=== PATIENT | male | born 1985 | race Caucasian/White ===

== ENCOUNTER → 2021-10-03 | Outpatient (CLI) | payer OTHER ==
--- NOTE | 2021-10-03 15:56 | MR ---
EXAMINATION TYPE: MR lumbar spine wo con DATE OF EXAM: 10/03/2021 COMPARISON: X-ray lumbar spine HISTORY: Lower back pain, BLE radiculopathy. Prior surgery x3. CONTRAST: 0 mL intravenous Gadavist. TECHNIQUE: Multiplanar, multisequence images of the lumbar spine were acquired. FINDINGS: Pedicle screws are present L4-L5 and S1. This causes magnetic susceptibility artifact limi ting evaluation through these levels. L5-S1: No definite spinal canal stenosis. Laminectomy has been performed. Foramen appear patent. L4-L5: Exam is limited to this level. Obvious stenosis is not identified. Foramen are limited but mariza ear patent. Metal compensation, there appears to be some right paracentral thecal sac contact. Some m ild posterior displacement of the exiting right nerve root be present. Correlate with radicular sympt oms. Example image series 701 image 7. L3-L4: There may be some minimal disc bulging with anterior thecal sac contact. No spinal canal steno sis is present. Facet hypertrophy is present L2-L3: No significant disc bulge or disc herniation. No spinal canal stenosis. No foraminal stenosi s. Facet hypertrophy is present.. L1-L2: No significant disc bulge or disc herniation. No spinal canal stenosis. No foraminal stenosi s. T12-L1: No significant disc bulge or disc herniation. No spinal canal stenosis. No foraminal stenos is. IMPRESSION: 1. There is limitation due to metallic artifact. With metal compensation there is suggestion of some right paracentral disc bulging L4-5 displacing the thecal sac and right exiting nerve root. Correlate for right L5 radicular symptoms.
== END | disposition home or self-care (01) ==
LOC: RADMRIMAIN 13:06
PROVIDERS: ATTEND Orthopaedic Surgery
DX: M51.16 Intervertebral disc disorders with radiculopathy, lumbar region (principal)
CPT/HCPCS: 72148

== ENCOUNTER → 2021-11-19 | Outpatient (CLI) | payer OTHER ==
--- NOTE | 2021-11-19 16:17 | MR ---
MRI CERVICAL SPINE: CLINICAL HISTORY: Cervical pain. Headache with weakness and pain into left arm and fingers. TECHNIQUE: Multiplanar, multisequence imaging of the cervical spine is performed without IV contrast. COMPARISON: Outside cervical spine x-ray October 30, 2021. FINDINGS: Sagittal images of the cervical spine show the craniocervical junction to appear within nor mal limits. The cervical and upper thoracic spinal cord is normal in course, caliber, and signal. V ertebral alignment is anatomic. The vertebral body and intravertebral disk heights are normal. The bone marrow signal intensity is within normal limits. Axial images show there is no significant focal disk disease, spinal canal stenosis, neural foraminal narrowing, or spinal cord compromise at any cervical level. IMPRESSION: Negative MRI of the cervical spine, no significant abnormality is seen to account for emory mendiola's clinical symptoms.
== END | disposition home or self-care (01) ==
LOC: RADMRIMAIN 13:24
PROVIDERS: ATTEND Nurse Practitioner Family
DX: M54.2 Cervicalgia (principal)
CPT/HCPCS: 72141

== ENCOUNTER → 2021-12-16 | Outpatient (CLI) | payer OTHER ==
[2021-12-16 08:27] VITALS: BP 123/76; PULSE 84; RESP 18; TEMP 98
--- NOTE | 2021-12-16 14:45 | P.PAINPG ---
PQRS Measure Charge Sheet Comment: HISTORY OF PRESENT ILLNESS: 36 yr old male as a referral from Dr. Cahn presents today w severe and chronic LBP secondary to disc bulges, spondylosis and facet arthropathy without myelopathy for evaluation. Pt states his pain level is currently at 10 /10 in intensity, constant, localized in the mid to lower lumbar spine, sharp in character w shooting towards the LLE. Pain is provoked by bending. Pain is alleviated by medications, injections in the past, ice, physical therapy twice a week from July through September 2021, daily home stretching regimen, massage therapy weekly but discontinued due to cost, laying supine, repositioning and rest. PMH: Exercise Induced Asthma PSH: Lumbar Microdisectomy x 2 (2012), Lumbar fusion (2013), Lumbar fusion w graft (2014), Appendectomy (2017) SH: +Cannabis use, No ETOH abuse. FH: Denies All: NKDA Meds: See list REVIEW OF ORGAN SYSTEMS: CONSTITUTIONAL: No fevers or chills. No recent weight loss. NEUROLOGICAL: + numbness and tingling along the distal extremities. No seizure disorders or headaches. MUSCULOSKELETAL: + pain PSYCHIATRIC: Denies current depression or suicidal thoughts. Physical Examinations : Constitutional : Cooperative , not in acute distress . Neurologic : Cranial nerve II to XII intact. No focal neurological deficits. Psychiatric : alert & oriented x 3. Matching mood & appropriate affect. Judgment & insight intact. Musculoskeletal : Cervical Spine Motor strength in the deltoid and biceps: Normal right side. Normal Left side Motor strength biceps and the wrist extensors: Normal right side . Normal left side Motor strength in the triceps muscle: Normal right side. Normal left side Deep tendon reflexes: Normal at the biceps. Normal at Brachioradialis. Normal at triceps Vertebral body tenderness to deep palpation over Cervical facet loading test: positive bilaterally Spurling test: positive bilaterally Neck distraction test: positive bilaterally Eileen sign: positive bilaterally Lumbar spine Motor strength lower extremities ,thigh and legs 5/5 Right side , 5/5 Left side Deep tendon reflexes : Normal Knee Jerk. Normal Ankle Jerk Vertebral body tenderness over L3 Lumbar facet Loading Test: positive Right / positive Left Range of motion of the lumbar spine Flexion 30 degrees, extension 10 degrees Straight Leg Raise test: Left/ Right positive at degree Terry test: positive right / positive left. Severe tenderness over the Sacroiliac joint on the Right / Left sides Gaenslen test: positive bilaterally Seated flexion test: positive bilaterally. Sacral spine : Severe tenderness over the Sacroiliac joint: right side / left side Range of motion: Flexion of the lumbar spine <60 degrees Range of motion: Extension of the lumbar spine <20 degrees Gaenslen's Test positive Kwadwo's Test positive Terry test: positive right side / left side Thigh Thrust Test Sacral Thrust Test Imaging: MRI without contrast of the lumbar spine from 10/03/21 reviewed Assessment/ Plan : Lumbar disc bulges, lumbar spondylosis Recommendation of L TFESI L3-L4. May need a series of injections, up to 3 within a 6 mo period, for optimal pain relief. Risks, benefits of procedure discussed and patient verbalized understanding. Admits aspirin or anti- coagulant use or medical history of diabetes. Protocol for discontinuation/ continuation of medications levon procedure discussed. All questions answered. I have spent greater than 30 minutes on patient care today. Dr Disla was available by phone for the evaluation of this patient. The time was used to review the medical records including relevant urine studies and Prescription history (MAPs), review of the available imaging, evaluation and examination of the patient, coordination of care with the medical staff and if applicable referring physicians, as well as creation of the medical record Controlled Substance Measures - Controlled Substance Measures Is patient prescribed a controlled substance at discharge?: No
== END ==
LOC: PNWHC3 07:44
PROVIDERS: ATTEND Specialist
DX: M47.816 Spondylosis without myelopathy or radiculopathy, lumbar region (principal); E11.9 Type 2 diabetes mellitus without complications; Z79.01 Long term (current) use of anticoagulants; Z79.4 Long term (current) use of insulin; E66.9 Obesity, unspecified; Z68.37 Body mass index [BMI] 37.0-37.9, adult
CPT/HCPCS: 99211

== ENCOUNTER 2021-12-30 08:02 | Day surgery (SDC) | payer OTHER ==
[2021-12-30 08:51] VITALS: TEMP 97.5
--- NOTE | 2021-12-30 10:40 | CT ---
EXAMINATION TYPE: CT lumbar spine w con, FL myelogram lumbosacral DATE OF EXAM: 12/30/2021 10:09 AM HISTORY: Lower extremity pain and numbness Informed consent was obtained and all the patient's questions were answered. The L3-L4 level was loc alized under fluoroscopy. Standard sterile technique was utilized as well as appropriate local anest hesia 1% Lidocaine and sodium bicarbonate. Spinal needle was introduced into the thecal sac under fl uoroscopic guidance and 10 ml of Omni M300 was injected. The patient tolerated the procedure well an d left the department in stable condition. CT myelography is to follow. FL time:4 minutes 12 second s. IMPRESSION: Successful myelography lumbar spine EXAMINATION TYPE: CT lumbar spine w con, FL myelogram lumbosacral DATE OF EXAM: 12/30/2021 COMPARISON: MRI dated 10/03/2021 HISTORY: Low back pain, radiculopathy CT DLP: 1660.6 mGycm Automated exposure control for dose reduction was used. CONTRAST: CT scan of the lumbar is performed with IV Contrast, patient injected with 9 mL of Isovue M300. Enhanced CT of the lumbar spine was performed. Bone and soft tissue window settings are submitted as well as coronal and sagittal reconstructions. L1-L2: Normal disc space height. No disc herniation protrusion or central stenosis. No facet joint arthropathy. No evidence for foraminal encroachment. L2-L3: Mild posterior disc bulge. Minimal effacement ventral thecal sac. No disc herniation or protru elaine. No facet joint arthropathy. No evidence for foraminal encroachment. L3-L4: Mild degenerative disc space narrowing. Posterior disc bulge greatest paracentrally and to the left where there is left foraminal encroachment and left lateral recess stenosis. No herniation is d ifficult to exclude. Borderline central stenosis. L4-L5: Postoperative changes of lumbar laminectomy and fusion. Pedicular screws are in place. No evid ence for recurrent or residual disease. Alignment is anatomic. Intervertebral body spacer is well sea rigoberto. L5-S1: Postoperative changes of lumbar laminectomy and fusion. Pedicular screws are in place. No evid ence for recurrent or residual disease. Alignment is anatomic. Intervertebral body spacer is well sea rigoberto. IMPRESSION: 1. Posterior disc bulge with small disc herniation difficult to exclude paracentrally and to the left at L3-4 there is left lateral recess stenosis with left foraminal encroachment. 2. Postoperative changes of lumbar laminectomy and fusion at L4-5 and L5-S1.
[2021-12-30] MEDS ORDERED: HYDROcodone/APAP 7.5-325MG 1 EACH TAB PO PRN (10:48)
[2021-12-30 17:17] VITALS: BP 122/53; PULSE 64; RESP 16
== END 2021-12-30 13:54 | disposition home or self-care (01) ==
LOC: RADPROMAIN 08:02
PROVIDERS: ATTEND Orthopaedic Surgery
DX: M48.061 Spinal stenosis, lumbar region without neurogenic claudication (principal); M54.16 Radiculopathy, lumbar region
CPT/HCPCS: 36415; 62304; 72132; J2001; Q9967

== ENCOUNTER → 2022-03-20 | Outpatient (CLI) | payer OTHER | END | disposition home or self-care (01) | LOC: LABPAT 08:47 | PROVIDERS: ATTEND Orthopaedic Surgery | DX: Z01.812 Encounter for preprocedural laboratory examination (principal); Z22.322 Carrier or suspected carrier of Methicillin resistant Staphylococcus aureus; M48.062 Spinal stenosis, lumbar region with neurogenic claudication | CPT/HCPCS: 87070 ==

== ENCOUNTER → 2022-03-27 | Outpatient (CLI) | payer OTHER ==
[2022-03-27 19:13] LABS: INR 0.86 (0.90-1.11); Prothrombin Time 9.8 sec (9.9-11.9)
[2022-03-27 22:04] LABS: African American GFR (CKD) 95.4 (60.0-200.0); Anion Gap 9.3 mmol/L (10.00-18.00); BUN/Creat Ratio 14.74 Ratio (12.00-20.00); Blood Urea Nitrogen 16.8 mg/dL (9.0-27.0); Calcium 9.7 mg/dL (8.7-10.3); Carbon Dioxide 26.6 mmol/L (20.0-27.5); Non-African American GFR(CKD) 82.3 (60.0-200.0); Potassium 4.8 mmol/L (3.5-5.5)
[2022-03-27 23:14] LABS: Basophils # (A) 0.04 X 10*3/uL (0.00-0.10); Basophils % (A) 0.7 %; Eosinophils % (A) 1.8 %; HCT 46.4 % (39.6-50.0); HGB 14.7 g/dL (13.0-17.0); Immature Grans, Automated 0.5 %; Lymphocytes # (A) 0.78 X 10*3/uL (0.90-5.00); Lymphocytes % (A) 14.1 %; MCH 28.6 pg (27.0-32.0); MCHC 31.7 g/dL (32.0-37.0); MCV 90.3 fL (80.0-97.0); Mean Platelet Volume 9.9 fL (9.5-12.2); Monocytes # (A) 0.34 X 10*3/uL (0.20-1.00); Monocytes % (A) 6.1 %; NRBC Per 100 WBC 0 /100 WBCS (0.0-0.0); Neutrophils # (A) 4.25 X 10*3/uL (1.80-7.70); Neutrophils % (A) 76.8 %; Platelet Count 274 X 10*3/uL (140-440); RBC 5.14 X 10*6/uL (4.40-5.60); RDW 13.4 % (11.5-14.5); WBC 5.54 X 10*3/uL (4.50-10.00)
== END | disposition home or self-care (01) ==
LOC: LABPAT 09:00
PROVIDERS: ATTEND Orthopaedic Surgery
DX: Z01.812 Encounter for preprocedural laboratory examination (principal); Z22.322 Carrier or suspected carrier of Methicillin resistant Staphylococcus aureus; M48.062 Spinal stenosis, lumbar region with neurogenic claudication; Z79.899 Other long term (current) drug therapy
CPT/HCPCS: 36415; 80048; 85025; 85610; 87070

== ENCOUNTER 2022-04-07 07:11 | Inpatient (IN) | payer OTHER ==
--- NOTE | 2022-04-07 06:28 | P.HPOR ---
History of Present Illness H&P Date: 03/20/22 .D:Date: 03/20/22 : 07:59am .T:Title: [facility] History and Physical Date of :[birth year] Age: 36 year Height: 5'11" Weight: 250 lbs BMI: 34.87 kg/m2 Occupation: Unemployed VAS: 7 CHIEF COMPLAINT: pre-operative review of planned revision L3-S1 decompression and fusion DOI: 08/2021 DOS: N/A Duration of current treatment regiment:3 months HISTORY : Xrays brought xrays from outside facility which were reviewed New xrays taken in office Trauma or injury yes Work-Related yes Pain description dull, burning, sharp. Location posterior Activity Modification yes Hand Dominance right TREATMENTS COMPLETED: 6 weeks of PT completed? Month and Year of last PT date? Yes How many sessions? >12 Did it help? No Physician recommended home exercise completed? Duration of HEP course: Current yes Patient has trialed the physician directed home exercise program without relief of their symptoms. Medications yes List: Prednisone, medrol dosepak, toradol, gabapentin without relief of his symptoms. Alternative interventions Chiropractic: No Massage therapy: yes R.I.C.E: yes Brace: No Injections No RFA: No SUBJECTIVE: Mr. Torres returns to the office for an pre-operative review of the planned revision L3-S1 decompression and fusion. Patient reports no changes to his symptoms since the time of the last appointment. Patient reports continued sharp low back pain radiating into the left lower extremity. Furthermore the patient continues to complain of LLE weakness and paresthesias as well which is impacting his daily functionality. Overall the patient has seen a progressive increase in symptoms since their onset. Mr. Torres symptoms are exacerbated with standing, ambulation, and high impact movements like walking up and down stairs, due to this they notes that it is increasingly difficult for Mr. Torres to complete many of their daily tasks. Patient is having severe sleep disturbances as well due to their ongoing pain and associated symptoms. Regarding treatments, the patient has previously trialed PT, RICE, massages, home exercises, and medications all without relief. Patient denies trialing any other modalities at this time. For their symptoms, the patient has been taking Tylenol ES, Gabapentin, Meloxicam, and Motrin all without relief of his symptoms. Otherwise the patient denies any f/c/sob/cp, no incision concerns, no bladder or bowel retention/incontinence, no perineal numbness/tingling, and ambulates independently. Patient notes that he is ready to proceed with the planned procedure. HISTORY: Mr. Torres returns to the office on 01/03/22 for a recheck of their low back pain and to review his CT myelogram obtained after his last appointment. Patient reports no improvements to his symptoms since his last appointment as well, noting continued sharp low back pain radiating into the left lower extremity. Furthermore the patient continues to complain of LLE weakness and paresthesias as well which is impacting his daily functionality. Overall the patient has seen a progressive increase in symptoms since their onset. Mr. Torres symptoms are exacerbated with standing, ambulation, and high impact movements like walking up and down stairs, due to this they notes that it is increasingly difficult for Mr. Torres to complete many of their daily tasks. Patient is having severe sleep disturbances as well due to their ongoing pain and associated symptoms. Regarding treatments, the patient has previously trialed PT, RICE, massages, home exercises, and medications all without relief. Patient denies trialing any other modalities at this time. For their symptoms, the patient has been taking Tylenol ES, Gabapentin, Meloxicam, and Motrin all without relief of his symptoms. Otherwise the patient denies any f/c/sob/cp, no incision concerns, no bladder or bowel retention/incontinence, no perineal numbness/tingling, and ambulates independently. Mr. Torres last presented to the office on 11/25/2021 for evaluation of his low back and LLE pain. He previous saw Cristine Segura NP for work up and now is following up with imaging and s/p PT, HEP etc. He had surgery on his back at a few years back after an accident and has had now 4 surgeries on his back which ended with him having a fusion of L4-S1. He states after he finally healed from this he did do well. but now he is starting to get some of the same sx as before surgery with LLE radiculopathy, weakness and paresthesias. This is similar to before surgery which had resolved after surgery but now is coming back. He denies any bowel or bladder issues. States no perineal numbness/tingling at this time. Denies ay f/c/sob/cp. Mr. Torres last presented to the office on 10/30/2021 for an evaluation of their neck pain. Patient reports a dull constant achy cervicalpain ongoing for 2 months with no known injury or trauma to indicate an exact onset of their symptoms. In addition to their cervical pain, they do report that it radiates into the bilateral upper extremities, associated with numbness and tingling. Overall the patient has seen a progressive increase in symptoms since their onset. Mr. Torres symptoms are exacerbated with rotation, flexion, and ex tension, due to this they notes that it is increasingly difficult for Mr. Torres to complete many of their daily tasks. He reports having limited ROM and episodes of dropping items from his hands. Patient is having mild sleep disturbances as well due to their ongoing pain and associated symptoms. Regarding treatments, the patient has previously trialed HEP. Patient denies trialing any other modalities at this time. For their symptoms, the patient has been taking Tylenol, Motrin, Flexeril, Meloxicam. Otherwise the patient denies any f/c/sob/cp and ambulates independently. Mr. Torres previously presented to the office on 10/16/2021 for review of his MRI results. Patient continues to report intermittent sharp pain with burning in his lower back. in addition to his lumbar pain he reports is associated with numbness and tingling diffuse her bilateral lower extremities with burning sensation, left greater than right. Patient feels he has exhausted all conservative measures at this time and would like a follow-up appointment with Dr. Chan to discuss possible surgical intervention. Otherwise the patient denies any f/c/sob/cp, no incision concerns, no bladder or bowel retention/i ncontinence no perineal numbness/tingling, and ambulates independently. Today 09/13/21 Mr. Torres presents to the office for an evaluation of chronic back pain. Patient reports a intermittent sharp pain with burning lumbar pain ongoing since July 2021. patient states that when he was 27 years old he had slipped on ice and had herniated multiple disks of the lumbar spine. He had seen a surgeon out of [facility]. After exhausting conservative measures patient had 2 microdiscectomies performed with no relief. Patient then had PLIF of L4 through S1, with an additional revision. The surgeries occurred between 2012 through April 2015. In addition to their lumbar pain, they do report that it is associated with numbness and tingling diffuse through bilateral lower extremities with burning sensation, left greater than right. Overall the patient has seen a progressive increase in symptoms since their onset. Mr. Torres symptoms are exacerbated with lifting, bending, he states depending on activity, due to this they notes that it is increasingly difficult for Mr. Torres to complete many of their daily tasks. Patient is having an increase in sleep disturbances as well due to their ongoing pain and associated symptoms. Regarding treatments, the patient has previously trialed physical therapy 4-5 sessions as of July 2021, which exacerbated symptoms. HEP daily without relief. Patient denies trialing any other modalities at this time. For their symptoms, the patient has been taking Tylenol and Motrin with slight relief. patient states that Motrin is starting to bother his stomach. Otherwise the patient denies any f/c/sob/cp, no incision concerns, no bladder or bowel retention/incontinence no perineal numbness/tingling, and ambulates i ndependently. The patients' past social, medical, family, surgical history, as well as review of systems, have been reviewed. Please refer to the Neurosurgery History and Physical form that has been scanned in to our electronic medical record system. 16 points review of systems completed and as stated in HPI, all other systems reviewed are negative. Social History: Reviewed, see appropriate section of the chart for details. P3 Family History: Reviewed, see appropriate section of the chart for details. P2 Past Medical History: Reviewed, see appropriate section of the chart for details. P1 Current Medications: Rx: Motrin Ref: 0 Rx: TylenoL Ref: 0 Rx: cyclobenzaprine 5 mg tablet Ref: 0 Rx: meloxicam 7.5 mg tablet Ref: 0 PHYSICAL EXAMINATION: General: Awake, alert, appropriate for age, in no acute distress. HEENT: No unusual neck masses around region of lateral neck triangle, thyroid, supraclavicular groove Extremities: Skin warm and dry without acute lesions, coloration, temperature, skin intact, no tenderness or erythema Integument: Hairy patches: ABSENT Dorsal skin dimples: ABSENT Cafe au lait spots: ABSENT Surgical incisions: Posterior midline low back well healed Palpation: Please see Pain drawing on Intake sheet for further detail. Midline spinal tenderness: No E6 Cervical Tenderness: No E6 Paralumbar tenderness: Yes mild E6 Parathoracic tenderness: No E6 Buttocks tenderness: No E6 POSTURAL and MUSCULO-SKELETAL EVALUATION: Coronal Balance: NEUTRAL Recumbent testing: Patient is able to lay flat on back Sagittal Balance: NEUTRAL Shoulder Profile: LEVEL Pelvic Girdle: LEVEL Neck ROM: RESTRICTED Lumbar ROM: RESTRICTED Shoulder ROM: Symmetrical Hip ROM: Symmetrical Knee ROM: Symmetrical Hands: Normal appearance, symmetrical Feet: Normal appearance, Symmetrical VASCULAR STATUS : LEFT RIGHT Wrist Pulses INTACT INTACT Pedal Pulses (Dors. pedis & post.tibialis) INTACT INTACT Color NORMAL NORMAL Edema Absent Absent NEUROLOGIC EXAMINATION: Mental Status:Awake and alert, fully oriented, with normal attention, concentration and memory, and fluent, appropriate speech. Cranial Nerves: I: Olfactory not tested. II: Visual acuity normal, no visual field deficit noted with confrontation. III,IV: Normal pupillary reflexes & intact extraocular movements without nystagmus. V,: Intact symmetrical facial sensation. VII: Intact symmetrical facial motor movement VIII: Hearing intact. IX,X: Intact gag, swallow, & normal voice. XI: Sternocleidomastoid, trapezius function intact. XII: Tongue midline with normal movements. L'hermitte's Sign: Negative / absent Spurling'Sign: Absent bilaterally. Cubital percussion test: Absent bilaterally. Youngblood-Tinel sign - Carpal region: Absent bilaterally. Straight Leg Raising: Absent bilaterally. 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 Sensory system (0-4, N/T) Test type RU YAYA RL LL Joint-Position 2 2 2 1 Vibration 2 2 2 1 Pain & LT sense 2 2 2 1 Dermatomal Deficit: None None None L3, L4, L5 Gait and Functional Evaluation: Ambulatory aids: Independent Romberg's test: Intact bilaterally Toe heel walk / heel-toe walk intact while maintaining satisfactory balance? No Squatting/straightening w/o assistance to a min of 60 degree knee flexion? yes Single leg stance: Trendelenburg sign negative bilaterally Hand and finger dexterity intact bilaterally? yes Disdiadochokinesis examination negative bilaterally? yes RADIOGRAPHIC STUDIES: XRay Lumbar Multiview (AP, Lateral, Flexion, Extension) with AP pelvis; 5 views taken on 11/25/21 at [facility] of the Post surgical changes noted L4-S1 with instrumented and IB fusion. There is reasonable bony construct noted anteriorly but little to no PL fusion noted. The hardware appears to be in position and does not show signs of migration of loosening on these films. There are no fractures or dislocations. Alignment is maintained at this time AP pelvis shows congruent level pelvis w/o fracture CT Myelogram from 12/30/2021 at [facility] of the lumbar spine: it was reviewed and demonstrate postsurgical changes L4-L5 with adjacent segment disease L3-L4 with herniated nucleus pulposus on the left with left foraminal stenosis and central stenosis. This is moderate to severe. There is disc desiccation as well as height loss at L3-L4 as well. There is facet arthropathy which is noted. There is spondylosis L2-L3 as well. L5-S1 shows potential pseudoarthrosis without fracture at this time. No other complicating processes seen at this time MRI scan from09/13/21 at [facility] of Lumbar Spine: This is reviewed and demonstrates likely HNP L3-4 causing L lateral recess and foraminal stenosis with exiting nerve encroachment. There are no fractures noted. No lesions noted. Post op changes obscure the view at L4-S1 but there are no glaring large stenotic lesions that can be seen. CT myelogram would be better visualization of this along with assessment of fusion and hardware. IMPRESSION: It was my pleasure to have seen and examined Gavino. I reviewed the patient's clinical syndrome, physical findings, and imaging studies during the appointment today. It is my impression that the patient has a diagnosis of. 1. 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 LLE radiculopathy with paresthesias 3. LLE weakness 4. Mechanical low back pain I outlined the natural course history without intervention and various interve ntional options. PLAN: Based on my findings I suggest the following course of action: -I discussed treatment options with the patient, including operative and non-operative options, and they have elected to proceed with the following surgical procedure: lumbar (L3-S1) revision decompression and fusion The indications, risks, benefits, and alternatives to surgery were discussed with the patient at length. Specifically (but not limited to) the risks of infection, stiffness, recurrence of symptoms, need for revision surgery, local numbness, neurovascular injury, and blood clots were discussed. The patient's questions were answered. The decision to proceed was made. Consent will be obtained for the procedure. Spine Surgery Risk Review Mr. Torres is presenting for evaluation of low back pain and bilateral lowe extremity radiculopathy. It was my pleasure to have seen and examined Mr. Torres. In our visit today we have had a chance to go over subjective complaints, physical examination findings and treatments including the natural course history without intervention and various interventional options. The patients imaging demonstrates: XRay Lumbar Multiview (AP, Lateral, Flexion, Extension) with AP pelvis; 5 views taken on 11/25/21 at [facility] of the Post surgical changes noted L4-S1 with instrumented and IB fusion. There is reasonable bony construct noted anteriorly but little to no PL fusion noted. The hardware appears to be in position and does not show signs of migration of loosening on these films. There are no fractures or dislocations. Alignment is maintained at this time AP pelvis shows congruent level pelvis w/o fracture CT Myelogram from 12/30/2021 at [facility] of the lumbar spine: it was reviewed and demonstrate postsurgical changes L4-L5 with adjacent segment disease L3-L4 with herniated nucleus pulposus on the left with left foraminal stenosis and central stenosis. This is moderate to severe. There is disc desiccation as well as height loss at L3-L4 as well. There is facet arthropathy which is noted. There is spondylosis L2-L3 as well. L5-S1 shows potential pseudoarthrosis without fracture at this time. No other complicating processes seen at this time MRI scan from09/13/21 at [facility] of Lumbar Spine: This is reviewed and demonstrates likely HNP L3-4 causing L lateral recess and foraminal stenosis with exiting nerve encroachment. There are no fractures noted. No lesions noted. Post op changes obscure the view at L4-S1 but there are no glaring large stenotic lesions that can be seen. CT myelogram would be better visualization of this along with assessment of fusion and hardware. On physical exam, Mr. Torres demonstrates significantly restricted lumbar ROM with left lower extremity radiculopathy and dermatomal deficit L3-L5. I have explained to the patient that as their condition progresses it will cause further neurological deficits and eventual paralysis. Based on the patients imaging, physical exam, and the rapid progression and disabling nature of their symptoms, at this time I recommend surgery in the form or a: lumbar (L3-S1) revision decompression and fusion. I discussed the risk and benefits of this procedure at length with Mr. Torres. The patient agreed to considered pursuing the procedure abovementioned. Prior to surgery, she should follow up with her PCP (Cardio, ID, IM etc) for clearance. Questions were invited and answered, and the patient wishes to proceed as outlined below. Currently, I am recommendin.lumbar (L3-S1) revision decompression and fusion 2.Follow up with PCP for surgical clearance 3.Review of surgical risks and benefits as well as an educational packet on the proposed surgical procedure. Risks: All surgical procedures come with inherent risks, including those related to positioning, anesthesia, intraoperative findings, and postoperative complications. It is important to understand that surgery does not come with any guarantee of a successful outcome as complications and adverse events are always possible. The patient was given a handout in office today discussing the surgical procedure and risks associated with the intervention, both of which were discussed with the patient. These risks include but are not limited to the following: * Experiencing same, different or even worse symptoms in back, neck, arms, or legs compared to before surgery. Requiring further surgery or other forms of treatment presently or at some time in the future at same or other levels of the intended spine surgery. On an extreme but fortunately relatively rare basis severe complication such as blindness, stroke, heart attack, temporary and/or permanent nerve injury, paralysis, coma, or may occur, sometimes without known explanation. Surgical complications may include but are not limited to risk of infection , fluid accumulation in the surgical dissection site, including a seroma or hematoma, that requires additional surgery, wound drainage, bleeding, new numbness or weakness, vision changes/loss, spinal fluid leakage, non-healing and/or infected incision, headaches, difficulty or inability to swallow, hoarseness, hemopneumothorax, pneumothorax, impotence, retrograde ejaculation, vaginal dryness; injury to nerves, spinal cord, blood vessels, lymphatics or other vital organs (i.e., bowel injury, injury to the great vessels); heterotopic bone formation; complications related to the hardware such as screws, rods, cages including misplaced hardware, device failure, instrumentation at the wrong spine level, hardware fracture/breakage, or hardware loosening; vertebral failure of the spinal column above or below the newly placed hardware; retained surgical instrumentations or devices and the need for further surgery. * Medical risks of the planned spine surgery include but are not limited to generalized Infections to the whole body or local areas outside of the surgical site (sepsis), heart attack, bleeding, anaphylaxis, meningitis, seizure, epilepsy, hearing loss, burn [place], laceration of the head or other areas of the body, bruising, hypersensitivity of the skin, bladder over distension; allergic reaction; shoulder injury related to positioning; fat, blood and air clots to other areas of the body like heart, lungs, brain; failure of internal organs such as lungs, kidneys, liver and excessive bleeding. If blood transfusions are necessary, note that transfusions may cause intolerance reactions such as anaphylaxis or other complex reactions. Despite best efforts, the results of spine surgery might not heal in terms of bone, soft tissues such as skin, fascia, ligaments, and joints. Additionally, in order to achieve best possible results, spine surgery may be carried out beyond the initially planned levels and involve decompression, fusion including insertion of hardware at levels other than the original intended area of surgical interest change some portions of the procedure in order to ensure the best possible outcomes. With spine surgery and spinal fusion, there are different off label uses of instrumentation (devices, implants and hardware) as well as biological substances (bone morphogenic proteins, demineralized bone matrix) as well as using extra bone from allograft sources (i.e. cadaver bone) or autograft (iliac crest bone, ribs, or the spine itself). The patient has been given information about these practices and their inherent risks and benefits. [facility] is an educational center that serves as a training facility for neurosurgical and orthopedic [employer] and Nursing students. Physician assistants are medically trained surgical providers who function in the outpatient, inpatient, and operating room setting under the direct supervision of the attending surgeon. [facility] has multiple operating rooms with single and overlapping rooms running daily. They currently function under the required guidelines as produced by the [facility] Finance Committee with regards to the overlapping rooms and will continue to comply with changes to this policy as they occur. The requirements include and are complied with as follows: (1) the critical portions of the overlapping rooms will not occur at the same time, (2) the attending physician will be physically present during the critical portions of the procedure and immediately available during the entire case, and (3) a back-up attending is designated should the primary attending not be immediately available. The patient has had a chance to review all the listed information, has been given print outs detailing this information, and has had all his/her questions answered to their satisfaction. It was my pleasure to have seen and examined Mr. Torres. In our visit today we have had a chance to go over my understanding of our patient's current condition, the natural course history without intervention and various interventional options. Questions were invited and answered, and the patient wishes to proceed as outlined above. I have seen and examined the patient for 25 minutes and we have spent more than 50% of the time in repeat and detailed counseling about the patient's condition, its natural course history with out and as much as can be predicted with surgery and re-review of various surgical treatment options. In conclusion, Mr. Torres requested we proceed with the above suggested surgery and are willing to accept risks and limitations of the suggested surgery as nature of the disease process and our best attempts at treatment for the condition. Thank you again for allowing us to be part of your patient's care. Please don't hesitate to contact me if you have any further questions. Signed and authenticated by: INCLUDEPICTURE P:\\\\ppart\\\\Files\\\\[id number]\\\\[id number]\\\\[id number]\\\\[id number]\\\\[id number]\\\\[id number]\\\\LEV G001\\\\[id number]\\\\[id number]\\\\[id number]\\\\[id number]\\\\[id number]\\\\[id number]\\\\[id number]\\\\[id number]\\\\LE [id number]\\\\[id number]\\\\[id number]\\\\[id number]\\\\[id number].PNG \\d Ehsan Chan DO [facility] Advanced Orthopedics and Spine Complex and Minimally Invasive Spine Surgery [address] [place] [address] Follow- up: 2 weeks post-op Patient Education: (Informational booklet, instructions, etc) given at today's appointment: Yes .ED:Patient Education: Y Medications Reviewed: YES In our visit today Mr. Torres and I have had a chance to go over my understanding of the patient's current condition, the natural course history without intervention and various interventional options. Questions were invited and answered, and the patient wishes to proceed as outlined above. I will be sure to keep you updated afterMr. Torres returns here for further follow-up. Thank you again for your referral. Please do not hesitate to contact me if you have any further questions. Signed and authenticated by: Ehsan Chan DO [facility]ics and Spine Complex and Minimally Invasive Spine Surgery [address] [place], [place] [id number] This message is confidential, intended only for the named recipient(s) and may contain information that is privileged or exempt from disclosure under applicable law. If you are not the intended recipient(s), you are notified that the dissemination, distribution or copying of this information is strictly prohibited. If you received this message in error, please notify the sender then delete this message. # SIGNED BY Ehsan Chan (GOO)03/24/2022 09:46AM Past Medical History Past Medical History: Asthma, Musculoskeletal Disorder, Skin Disorder Additional Past Medical History / Comment(s): back pain, herniated disc, pain left leg, eczema legs & arms, this surg. was resceduled from last week History of Any Multi-Drug Resistant Organisms: None Reported Past Surgical History: Appendectomy, Back Surgery Additional Past Surgical History / Comment(s): back surgery x4, recent pain procedure Past Anesthesia/Blood Transfusion Reactions: No Reported Reaction Smoking Status: Never smoker - Past Family History Father Family Medical History: No Reported History Medications and Allergies Home Medications Medication Instructions Recorded Confirmed Type Acetaminophen Tab [Tylenol Tab] 500 mg PO Q6H PRN 12/19/21 04/03/22 History Cyclobenzaprine [Flexeril] 5 mg PO TID PRN 12/19/21 04/03/22 History Gabapentin [Neurontin] 300 mg PO TID 12/19/21 04/03/22 History Meloxicam [Mobic] 7.5 mg PO DAILY 12/19/21 04/03/22 History Ibuprofen 800 mg PO Q8H PRN 12/30/21 04/03/22 History Albuterol Inhaler [Ventolin Hfa 1 - 2 puff INHALATION Q6H PRN 03/24/22 04/03/22 History Inhaler] diphenhydrAMINE [Benadryl] 25 mg PO HS PRN 03/24/22 04/03/22 History Allergies Allergy/AdvReac Type Severity Reaction Status Date / Time No Known Allergies Allergy Verified 04/03/22 15:46 Physical Examination Osteopathic Statement: *. No significant issues noted on an osteopathic structural exam other than those noted in the History and Physical/Consult.
[~2022-04-07 07:11] MED LIST: ACETAMINOPHEN TAB 500 MG TAB PO PRN; GABAPENTIN 300 MG CAP PO PRN; ONDANSETRON 4 MG/2 ML VIAL IVP PRN; TRANEXAMIC ACID IN NACL,ISO-OS 1,000 MG in SALINE 1 100ML.BAG IVPB PRN; ceFAZolin 3 GM in SODIUM CHLORIDE 0.9% 100 ML IVPB PRN
[2022-04-07] MEDS ORDERED: MIDAZOLAM 2 MG/2 ML VIAL IV PRN (07:12)
[2022-04-07] MEDS ORDERED: DEXAMETHASONE SOD PHOSPHATE 4 MG/ML 1 ML VIAL IV ONE (07:12)
[2022-04-07] MEDS ORDERED: ONDANSETRON 4 MG/2 ML VIAL IVP ONE ×2 (07:12→12:37)
[2022-04-07] MEDS: LACTATED RINGERS 1,000 ML IV SCH ×2 (08:00→08:10)
[2022-04-07] MEDS: LIDOCAINE 1% (10MG/ML) FOR IV START INTRADERMA PRN ×2 (08:00→08:10)
[2022-04-07] MEDS ORDERED: fentaNYL (PF) 50 MCG/ML 2 ML AMP ONE (08:18)
[2022-04-07] MEDS ORDERED: SUCCINYLCHOLINE CHLORIDE 200 MG/10 ML VIAL IV ONE (08:18)
[2022-04-07] MEDS ORDERED: ROCURONIUM 10 MG/ML (5 ML VIAL) IV ONE (08:18)
[2022-04-07] MEDS ORDERED: NEOSTIGMINE 1 MG/ML 10 ML VIAL ONE (08:18)
[2022-04-07] MEDS ORDERED: HYDROmorphone (PF) 1 MG/ML ONE (08:18)
[2022-04-07] MEDS ORDERED: PHENYLEPHRINE-0.9% NACL SYG 1,000 MCG/10 ML SYRINGE ONE (08:18)
[2022-04-07] MEDS ORDERED: PROPOFOL 10 MG/ML 20 ML VIAL IV ONE (08:18)
[2022-04-07] MEDS ORDERED: MIDAZOLAM 2 MG/2 ML VIAL ONE (08:18)
[2022-04-07] MEDS ORDERED: LIDOCAINE 2% INJ 20 MG/ML (2 ML VIAL) ONE (08:18)
[2022-04-07] MEDS ORDERED: GLYCOPYRROLATE 0.2 MG/ML 2 ML VIAL ONE (08:18)
[2022-04-07] MEDS ORDERED: TRANEXAMIC ACID IN NACL,ISO-OS 1,000 MG/100 ML BAG ONE (08:18)
[2022-04-07] MEDS ORDERED: THROMBIN (BOVINE) 5,000 UNIT VIAL TOPICAL ONE (09:41)
[2022-04-07] MEDS ORDERED: GELATIN SPONGE,ABSORB (LARGE) 1 EACH SPONGE TOPICAL ONE (09:42)
[2022-04-07] MEDS ORDERED: VANCOMYCIN 1,000 MG VIAL MISCELLANE ONE (11:41)
[2022-04-07] MEDS ORDERED: HYDROmorphone 0.5 MG/0.5 ML SYRINGE IVP PRN (12:22)
[2022-04-07] MEDS ORDERED: HYDROcodone/APAP 5-325MG 1 EACH TAB PO PRN (12:22)
[2022-04-07] MEDS: HYDROmorphone 0.5 MG/0.5 ML SYRINGE IVP PRN ×6 (12:35→13:55)
--- NOTE | 2022-04-07 12:40 | XR ---
Intraoperative/procedural fluoroscopic services were provided for lumbar fusion L4-S1. Hardware appea rs intact with appropriate alignment. Total fluoroscopy time is 25 seconds with a total of 4 submitte d images to PACS. Please see the operative note for further details.
[2022-04-07] MEDS ORDERED: LACTATED RINGERS 1,000 ML IV ONE (14:00)
[2022-04-07] MEDS ORDERED: fentaNYL (PF) 50 MCG/1 ML VIAL IVP ONE (14:15)
[2022-04-07] MEDS ORDERED: GABAPENTIN 300 MG CAP PO SCH (16:00)
[2022-04-07] MEDS: HYDROcodone/APAP 10-325MG 1 EACH TAB PO PRN ×2 (16:04→20:05)
[2022-04-07] MEDS: ceFAZolin 3 GM in SODIUM CHLORIDE 0.9% 100 ML IVPB SCH ×2 (16:04→23:05)
[2022-04-07] MEDS: CYCLOBENZAPRINE 5 MG TAB PO PRN (16:04)
[2022-04-07] MEDS: HYDROmorphone 1 MG/ML 1 ML SYRINGE IVP PRN (17:18)
[2022-04-07] MEDS: ACETAMINOPHEN TAB 325 MG TAB PO SCH ×2 (17:18→23:04)
[2022-04-07] MEDS ORDERED: HYDROmorphone 1 MG/ML 1 ML SYRINGE IVP STA (18:56)
--- NOTE | 2022-04-07 19:09 | P.CONS ---
History of Present Illness - Reason for Consult Consult date: 04/07/22 Medical management Requesting physician: Ehsan Chan - History of Present Illness History of Presenting Illness: Patient is a very pleasant 36-year-old male admitted to the hospital for a planned revision L3 through S1 decompression and fusion. We have been consulted for medical management throughout patient's hospitalization. Patient seen and fully evaluated at bedside. He reports postoperative pain is uncontrolled at this time. Cuevas catheter is in place. Patient denies any postoperative nausea or vomiting, headache, lightheadedness, dizziness, chest pain, palpitations, shortness of breath, or experiencing any numbness/tingling/weakness in his extremities. Patient reports previously experienced sharp burning pain that he was experiencing prior to surgery has resolved. He currently reports only a mild burning sensation in bilateral lower extremities. Patient denies having any numbness, tingling, or weakness. Review of systems: Pertinent positives and negatives as discussed in HPI, a complete review of systems was performed and all other systems are negative. Physical exam: Vital signs reviewed and stable. General: Nontoxic, no distress and appears stated age. Derm: Skin warm and dry, normal coloration for ethnicity. Head: Atraumatic, normocephalic and symmetric. Eyes: EOMs intact, no lid lag, and anicteric sclera Mouth: no lip lesions, mucus membranes moist Cardiovascular: regular rate and rhythm with normal S1S2, no murmur, positive posterior tibial pulses bilaterally, and cap refill < 2 seconds. Lungs: Respirations even, regular, and unlabored on room air. Lungs CTA bilaterally, no rhonchi, no rales, no wheezing, and no accessory muscle usage. Abdominal: soft, nontender to palpation, no guarding, no appreciable organom egaly. Cuevas catheter in place.. Ext: ROM intact. No gross muscle atrophy, no edema, no contractures Neuro: Speech clear, face symmetrical and CN II-XII grossly intact with no noted focal neuro deficits Psych: Alert and oriented to person, place, time, and situation. Appropriate and pleasant affect. Assessment and Plan of Care: Status post revision of L3 through S1 decompression and fusion -Management per primary admitting orthospine surgical team including DVT prophylaxis, wound/drain/dressing management, weightbearing, and PT/OT. -DVT prophylaxis currently with JEREMIE hose with SCDs. -Order placed for fall precautions. Uncontrolled postoperative pain -Patient provided with a one time additional dose of Dilaudid 1 mg IVP in attempts to achieve postoperative pain control. Patient then to continue with pain medication regimen as previously ordered. Discussed with RN in details and if patient continues to have uncontrolled pain orthopedic surgeon to be notified at that time. Thank you for allowing us to participate in the care of this pleasant patient. Do not hesitate to contact us with questions. Someone can be reached from the [facility] hospitalist group all hours of the day at [phone] or via [employer]. Past Medical History Past Medical History: Asthma, Musculoskeletal Disorder, Skin Disorder Additional Past Medical History / Comment(s): back pain, herniated disc, pain left leg, eczema legs & arms, this surg. was resceduled from last week History of Any Multi-Drug Resistant Organisms: None Reported Past Surgical History: Appendectomy, Back Surgery Additional Past Surgical History / Comment(s): back surgery x4, recent pain procedure Past Anesthesia/Blood Transfusion Reactions: No Reported Reaction Past Psychological History: Anxiety, Panic Disorder Smoking Status: Never smoker Past Alcohol Use History: None Reported Past Drug Use History: Marijuana Additional Drug Use History / Comment(s): smokes daily - Past Family History Father Family Medical History: No Reported History Medications and Allergies Home Medications Medication Instructions Recorded Confirmed Type Acetaminophen Tab [Tylenol Tab] 500 mg PO Q6H PRN 12/19/21 04/03/22 History Cyclobenzaprine [Flexeril] 5 mg PO TID PRN 12/19/21 04/03/22 History Gabapentin [Neurontin] 300 mg PO TID 12/19/21 04/03/22 History Meloxicam [Mobic] 7.5 mg PO DAILY 12/19/21 04/03/22 History Ibuprofen 800 mg PO Q8H PRN 12/30/21 04/03/22 History Albuterol Inhaler [Ventolin Hfa 1 - 2 puff INHALATION Q6H PRN 03/24/22 04/03/22 History Inhaler] diphenhydrAMINE [Benadryl] 25 mg PO HS PRN 03/24/22 04/03/22 History Allergies Allergy/AdvReac Type Severity Reaction Status Date / Time No Known Allergies Allergy Verified 04/03/22 15:46 Physical Exam Vitals: Vital Signs Temp Pulse Pulse Resp BP BP Pulse Ox 04/07/22 14:30 60 17 112/55 96 04/07/22 14:00 55 L 16 91/50 96 04/07/22 13:45 72 16 107/52 97 04/07/22 13:30 75 16 104/51 95 04/07/22 13:15 82 15 104/56 98 04/07/22 13:00 60 16 110/63 99 04/07/22 12:45 68 16 104/57 99 04/07/22 12:30 58 L 16 110/69 99 04/07/22 12:22 97 F L 60 16 112/55 99 04/07/22 07:42 97.0 F L 64 16 98/57 94 L Intake and Output 04/07/22 04/07/22 04/07/22 06:59 14:59 22:59 Intake Total 2450 Output Total 800 700 Balance 1650 -700 Intake: IV 2450 Output: Urine 300 700 Estimated Blood Loss 500 Other: Weight 125.4 kg 125.4 kg
[2022-04-07] MEDS: GABAPENTIN 300 MG CAP PO SCH (22:47)
[2022-04-08] MEDS: HYDROmorphone 1 MG/ML 1 ML SYRINGE IVP PRN ×4 (00:27→21:26)
[2022-04-08] MEDS: ACETAMINOPHEN TAB 325 MG TAB PO SCH ×3 (05:17→20:34)
--- NOTE | 2022-04-08 08:04 | CT ---
EXAMINATION TYPE: CT lumbar spine wo con CT DLP: 1818.7 mGycm, Automated exposure control for dose reduction was used. DATE OF EXAM: 04/08/2022 7:44 AM COMPARISON: 12/30/2021. CLINICAL INDICATION:Male, 36 years old with history of s/p L3-S1 decompr/fusion; PHH, S/P L3-S1 Decom pression/Fusion TECHNIQUE: Multiple axial images were obtained from the midportion of T11 through the sacroiliac phil nts. Soft tissue and bone windows in coronal and sagittal planes were obtained and reviewed. 3-D ref ormats of the bones were created on a separate workstation and submitted for review. Contrast used: none. Oral contrast used: none. FINDINGS: Alignment: There are 5 lumbar type vertebral bodies within normal alignment. Bone: Postsurgical changes at L4-L5 and S1. Hardware appears in appropriate position. There is geovanna ctomy changes at L3 and L4. Surgical bed gas and fluid are present. There is a drainage catheter in p lace. Drainage catheter distal tip appears in appropriate position within the surgical bed. No eviden ce for acute fracture. Evaluation of the disc levels is limited due to streak artifact. Skin uvaldo are present. Discs: T12-L1: No spinal canal or neural foraminal stenosis is identified. L1-L2: No spinal canal or neural foraminal stenosis is identified. L2-L3: No spinal canal or neural foraminal stenosis is identified. L3-L4: Disc bulge with at least mild spinal canal stenosis. The neural foramen are patent. L4-L5: Evaluation limited by hardware no obvious spinal canal stenosis. The neural foramen are paten t. L5-S1: Evaluation limited by hardware no obvious spinal canal stenosis. The neural foramen are patent . IMPRESSION: Postsurgical changes with drainage catheter in appropriate position. Hardware appears intact. No evid ence for acute fracture.
[2022-04-08] MEDS ORDERED: ALBUTEROL NEBULIZED 2.5 MG/3 ML INHALATION PRN (08:23)
[2022-04-08] MEDS: CYCLOBENZAPRINE 5 MG TAB PO PRN ×3 (08:50→21:26)
[2022-04-08] MEDS: HYDROcodone/APAP 10-325MG 1 EACH TAB PO PRN ×4 (08:50→23:40)
[2022-04-08] MEDS: GABAPENTIN 300 MG CAP PO SCH ×3 (08:50→21:26)
[2022-04-08 09:12] LABS: Basophils # (A) 0.03 X 10*3/uL (0.00-0.10); Basophils % (A) 0.3 %; Eosinophils # (A) 0.08 X 10*3/uL (0.04-0.35); Eosinophils % (A) 0.7 %; HGB 12.6 g/dL (13.0-17.0); Immature Grans, Automated 0.2 %; Lymphocytes # (A) 1.13 X 10*3/uL (0.90-5.00); Lymphocytes % (A) 10.4 %; MCH 28.8 pg (27.0-32.0); MCHC 32.3 g/dL (32.0-37.0); Mean Platelet Volume 9.9 fL (9.5-12.2); Monocytes # (A) 0.76 X 10*3/uL (0.20-1.00); NRBC Per 100 WBC 0 /100 WBCS (0.0-0.0); Neutrophils # (A) 8.82 X 10*3/uL (1.80-7.70); Neutrophils % (A) 81.4 %; Platelet Count 269 X 10*3/uL (140-440); RBC 4.38 X 10*6/uL (4.40-5.60); RDW 13.3 % (11.5-14.5); WBC 10.84 X 10*3/uL (4.50-10.00)
[2022-04-08 09:33] LABS: African American GFR (CKD) 89.6 (60.0-200.0); Anion Gap 10.3 mmol/L (10.00-18.00); BUN/Creat Ratio 7.92 Ratio (12.00-20.00); Blood Urea Nitrogen 9.5 mg/dL (9.0-27.0); Calcium 9.3 mg/dL (8.7-10.3); Carbon Dioxide 30.7 mmol/L (20.0-27.5); Non-African American GFR(CKD) 77.3 (60.0-200.0); Potassium 4.3 mmol/L (3.5-5.5)
--- NOTE | 2022-04-08 09:49 | P.PN ---
Subjective Progress Note Date: 04/08/22 Principal diagnosis: 1. 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 LLE radiculopathy with paresthesias 3. LLE weakness 4. Mechanical low back pain patient was seen at bedside this morning lying semirecumbent position. Patient says he is looking forward to working with physical therapy earlier this morning. Patient says he did have a computed tomography scan this morning. Patient says he is having generalized low back pain currently. Patient feels that numbness and the tingling in his left lower extremity has subsided somewhat. Thao/catheter was removed early this morning. Patient has not urinated since it was removed. patient denies chest pain, fever, shortness breath, nausea, vomiting, vision, loss of bowel/bladder control. Objective - Vital Signs Vital signs: Vital Signs Temp 98.1 F 04/08/22 08:00 Pulse 65 04/08/22 08:00 Resp 17 04/08/22 08:00 BP 108/63 04/08/22 08:00 Pulse Ox 94 L 04/08/22 08:00 FiO2 Intake & Output 04/07/22 04/08/22 04/08/22 18:59 06:59 18:59 Intake Total 2630 Output Total 1590 1550 1600 Balance 1040 -1550 -1600 Weight 125.4 kg Intake: IV 2450 Intake, IV Titration 180 Amount Lactated Ringers 1,000 ml 80 @ 20 mls/hr IV .Q24H [facility] Rx#:[id number] ceFAZolin 3 gm In Sodium 100 Chloride 0.9% 100 ml @ 200 mls/hr IVPB Q8HR [facility] Rx#:[id number] Output: Drainage 90 Right Lower Back 90 Urine 1000 1550 1600 Uretheral (Cuevas) 800 Estimated Blood Loss 500 Other: Voiding Method Indwelling Catheter - Exam surgical dressing present at midline on lumbar spine. bulb drain present with moderate serosanguineous output. there is a bit of diminished/altered sensation in the L3, L4, L5 dermatomes in the left lower extremity. Patient feels that it is improving since surgery. Sensation is equal, symmetric, bilateral intact throughout the upper extremities and in the right lower extremity. Mild TTP over midline lumbar spine. NTTP throughout rest of exam. There is some limited ROM in bilateral hips in flexion/ext due to referred pain to low back. Full ROM in bilateral knees in flexion/ext and ankles in dorsi/plantar flexion bilaterally. Full ROM throguhout BUE. Motor exam 5/5 in all major motor groups in BUE and BLE. Neurovascular status is intact bilaterally. Cap refill under 3 seconds in his upper extremities. Radial pulse intact, 2+ bilaterally. Negative Homans bilaterally. - Labs CBC & Chem 7: 04/08/22 04:38 04/08/22 04:38 Labs: Abnormal Lab Results - Last 24 Hours (Table) 04/08/22 04/08/22 Range/Units 04:38 04:38 WBC 10.84 H (4.50-10.00) X 10*3/uL RBC 4.38 L (4.40-5.60) X 10*6/uL Hgb 12.6 L (13.0-17.0) g/dL Hct 39.0 L (39.6-50.0) % Neutrophils # 8.82 H (1.80-7.70) X 10*3/uL Carbon Dioxide 30.7 H (20.0-27.5) mmol/L BUN/Creatinine Ratio 7.92 L (12.00-20.00) Ratio Assessment and Plan Assessment: 1. 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 LLE radiculopathy with paresthesias 3. LLE weakness 4. Mechanical low back pain - postoperative day 1 status post revision L3-S1 decompression fusion Plan: 1. 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 Patient stable at this morning. Bulb drain intact with moderate serosanguineous output. Maintain at this time. Surgical dressing present. post-op CT scan lumbar spine performed this morning. We will continue to follow patient during stay in hospital. Plan for discharge Home with health services rw vs Thursday. 2. Appreciate medical management 3. Pain management - norcol gabapentin; flexeril; dilaudid 4. DVT ppx - mechanical 5. GI ppx - senna 6. PT/OT - WBAT w/walker if needed 7. Encourage incentive spirometer use 8. Discharge planning - Home with health services tmrw vs Thursday Time with Patient: Less than 30
[2022-04-08] MEDS: SENNOSIDES-DOCUSATE SODIUM 1 EACH TAB PO PRN (13:24)
--- NOTE | 2022-04-08 16:07 | P.PN ---
Subjective Progress Note Date: 04/08/22 (delayed charting seen at 1020) Patient is a 36-year-old male with asthma, eczema, and prior back surgery who presented for revision L3 through S1 decompression and fusion. Patient seen and examined at bedside. He is currently having some pain but it is manageable. He denies any headache, dizziness, lightheadedness, dizziness. He denies any numbness or tingling. His shooting pain has improved. General: nontoxic, no distress, appears at stated age Derm: warm, dry Head: atraumatic, normocephalic, symmetric Eyes: EOMI, no lid lag, anicteric sclera Mouth: no lip lesion, mucus membranes moist Cardiovascular: S1S2 reg, no murmur, positive posterior tibial pulse bilateral, Lungs: CTA bilateral, no rhonchi, no rales , no accessory muscle use Abdominal: soft, nontender to palpation, no guarding, no appreciable organomegaly Ext: no gross muscle atrophy, no edema, no contractures Neuro: CN II-XI grossly intact, no focal neuro deficits Psych: Alert, oriented, appropriate affect Assessment/plan: 36-year-old status post L3 through S1 revision decompression and fusion. Asthma without exacerbation -Add when necessary bronchodilators in case patient developed some respiratory difficulties Acute blood loss anemia with leukocytosis -Anticipated outcome secondary to surgery -Stable and no indication for transfusion on review of CBC 04/08/22 -Repeat CBC in a.m. Urinating difficulties, chronic --check postvoid residuals once Cuevas is discontinued -We'll status with PCP as an outpatient for further testing. Thank you for allowing us to participate in the care of this pleasant patient. Do not hesitate to contact us with questions. Someone can be reached from the [facility] hospitalist group all hours of the day at [phone] or via perfect serve. Active Medications Generic Name Dose Route Start Last Admin Trade Name Freq PRN Reason Stop Dose Admin Acetaminophen 650 mg 04/07/22 18:00 04/08/22 12:57 Acetaminophen Tab 325 Mg Tab PO 650 mg Q6HR QUITA Administration Hydrocodone Bitart/Acetaminophen 1 each 04/07/22 12:22 Hydrocodone/Apap 5-325mg 1 Each Tab PO Q4HR PRN Pain Scale 4 - 6 Hydrocodone Bitart/Acetaminophen 1 each 04/07/22 12:22 04/08/22 12:58 Hydrocodone/Apap 10-325mg 1 Each Tab PO 1 each Q4H PRN Administration Pain Scale 7 - 10 Albuterol Sulfate 2.5 mg 04/08/22 08:23 Albuterol Nebulized 2.5 Mg/3 Ml INHALATION RT-QID PRN Shortness Of Breath Or Wheezing Cyclobenzaprine HCl 5 mg 04/07/22 12:22 04/08/22 15:29 Cyclobenzaprine 5 Mg Tab PO 5 mg TID PRN Administration Muscle Spasm Gabapentin 300 mg 04/07/22 22:00 04/08/22 15:29 Gabapentin 300 Mg Cap PO 300 mg TID QUITA Administration Hydromorphone HCl 1 mg 04/07/22 12:22 04/08/22 05:51 Hydromorphone 1 Mg/Ml 1 Ml Syringe IVP 1 mg Q3HR PRN Administration Pain Scale of 7 - 10 Hydromorphone HCl 0.5 mg 04/07/22 12:22 04/08/22 15:13 Hydromorphone 0.5 Mg/0.5 Ml Syringe IVP 0.5 mg Q3HR PRN Administration Pain Scale 4 - 6 Lactated Ringer's 1,000 mls @ 20 mls/hr 04/07/22 07:12 04/07/22 08:10 Lactated Ringers IV 100 mls .Q24H QUITA Administration Lidocaine HCl 0.1 ml 04/07/22 07:12 04/07/22 08:10 Lidocaine 1% (10mg/Ml) For Iv Start INTRADERMA 0.1 ml PER PROTOCOL PRN Administration IV Start Senna/Docusate Sodium 2 each 04/07/22 12:22 04/08/22 13:24 Sennosides-Docusate Sodium 1 Each Tab PO 2 each DAILY PRN Administration Constipation Objective - Vital Signs Vital signs: Vital Signs Temp 97.4 F L 04/08/22 13:39 Pulse 78 04/08/22 13:39 Resp 17 04/08/22 13:39 BP 112/70 04/08/22 13:39 Pulse Ox 95 04/08/22 13:39 FiO2 Intake & Output 04/07/22 04/08/22 04/08/22 18:59 06:59 18:59 Intake Total 2630 Output Total 1590 1550 1600 Balance 1040 -1550 -1600 Weight 125.4 kg Intake: IV 2450 Intake, IV Titration 180 Amount Lactated Ringers 1,000 ml 80 @ 20 mls/hr IV .Q24H [facility] Rx#:[id number] ceFAZolin 3 gm In Sodium 100 Chloride 0.9% 100 ml @ 200 mls/hr IVPB Q8HR QUITA Rx#:[id number] Output: Drainage 90 Right Lower Back 90 Urine 1000 1550 1600 Uretheral (Cuevas) 800 Estimated Blood Loss 500 Other: Voiding Method Indwelling Catheter # Voids 1 - Labs CBC & Chem 7: 04/08/22 04:38 04/08/22 04:38 Labs: Abnormal Lab Results - Last 24 Hours (Table) 04/08/22 04/08/22 Range/Units 04:38 04:38 WBC 10.84 H (4.50-10.00) X 10*3/uL RBC 4.38 L (4.40-5.60) X 10*6/uL Hgb 12.6 L (13.0-17.0) g/dL Hct 39.0 L (39.6-50.0) % Neutrophils # 8.82 H (1.80-7.70) X 10*3/uL Carbon Dioxide 30.7 H (20.0-27.5) mmol/L BUN/Creatinine Ratio 7.92 L (12.00-20.00) Ratio
[2022-04-09] MEDS: ACETAMINOPHEN TAB 325 MG TAB PO SCH ×5 (00:25→23:53)
[2022-04-09] MEDS: HYDROmorphone 1 MG/ML 1 ML SYRINGE IVP PRN ×6 (00:59→21:35)
[2022-04-09] MEDS: CYCLOBENZAPRINE 5 MG TAB PO PRN (04:14)
[2022-04-09] MEDS: HYDROcodone/APAP 10-325MG 1 EACH TAB PO PRN ×3 (06:01→15:31)
[2022-04-09] MEDS: LACTATED RINGERS 1,000 ML IV SCH (06:44)
[2022-04-09 07:42] LABS: Basophils % (A) 0 %; Eosinophils # (A) 0.1 k/uL (0-0.7); Eosinophils % (A) 2 %; HCT 36.8 % (39.0-53.0); HGB 12.6 gm/dL (13.0-17.5); Lymphocytes # (A) 0.9 k/uL (1.0-4.8); Lymphocytes % (A) 12 %; MCH 29.4 pg (25.0-35.0); MCHC 34.3 g/dL (31.0-37.0); MCV 85.7 fL (80.0-100.0); Monocytes # (A) 0.6 k/uL (0-1.0); Monocytes % (A) 8 %; Neutrophils # (A) 5.8 k/uL (1.3-7.7); Neutrophils % (A) 77 %; Platelet Count 220 k/uL (150-450); RDW 13.2 % (11.5-15.5); WBC 7.6 k/uL (3.8-10.6)
[2022-04-09 08:04] LABS: African American GFR (CKD) >90 (>60 ml/min/1.73 sqM); Anion Gap 3 mmol/L; Blood Urea Nitrogen 10 mg/dL (9-20); Calcium 8.9 mg/dL (8.4-10.2); Carbon Dioxide 33 mmol/L (22-30); Chloride 99 mmol/L (98-107); Glucose 94 mg/dL (74-99); Non-African American GFR(CKD) 86 (>60 ml/min/1.73 sqM); Potassium 3.9 mmol/L (3.5-5.1); Sodium 135 mmol/L (137-145)
--- NOTE | 2022-04-09 08:07 | P.OP ---
Date of Procedure: 04/07/22 Preoperative Diagnosis: 1. 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 L4-5 pseudoarthrosis 3. L3-S1 stenosis with pseudoarthrosis s/p L4-S1 fusion 4. LE radiculopathy 5. LE weakness 6. Back pain Postoperative Diagnosis: 1. 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 L4-5 pseudoarthrosis 3. L3-S1 stenosis with pseudoarthrosis s/p L4-S1 fusion 4. LE radiculopathy 5. LE weakness 6. Back pain Procedure(s) Performed: 1. L4-S1 revision posteriolateral fusion (43759, [id number]) 2. L3-S1 revision bilateral laminectomy, partial medial facetecomy and foraminotomy (31875, [id number]) 3. Segmental instrumentation L4-S1 (79404) 4. Removal of hardware L4-S1 (99647) 5. Exploration of fusion L4-S1 (94440) 6. Dural Repair with patch graft (08652) Implants: -Removal of spine wave screws and rods -Implantation of Life spine ARX screw and tawanna system 6.0 -MagnatOs, Allocel, allograft, Ana Anesthesia: GETA Surgeon: Ehsan Chan Bodybuilder #1: Ponce Breen (was present and assited with all aspects of the case from positioning to dressing placement) Estimated Blood Loss (ml): 500 IV fluids (ml): 1,000 Urine output (ml): 400 Pathology: none sent Condition: stable Disposition: PACU Indications for Procedure: Mr. Torres is presenting for evaluation of low back pain and bilateral lowe extremity radiculopathy. It was my pleasure to have seen and examined Mr. Torres. In our visit today we have had a chance to go over subjective complaints, physical examination findings and treatments including the natural course history without intervention and various interventional options. The patients imaging demonstrates: XRay Lumbar Multiview (AP, Lateral, Flexion, Extension) with AP pelvis; 5 views taken on 11/25/21 at [facility] of the Post surgical changes noted L4-S1 with instrumented and IB fusion. There is reasonable bony construct noted anteriorly but little to no PL fusion noted. The hardware appears to be in position and does not show signs of migration of loosening on these films. There are no fractures or dislocations. Alignment is maintained at this time AP pelvis shows congruent level pelvis w/o fracture CT Myelogram from 12/30/2021 at [facility] of the lumbar spine: it was reviewed and demonstrate postsurgical changes L4-L5 with adjacent segment disease L3-L4 with herniated nucleus pulposus on the left with left foraminal stenosis and central stenosis. This is moderate to severe. There is disc desiccation as well as height loss at L3-L4 as well. There is facet arthropathy which is noted. There is spondylosis L2-L3 as well. L5-S1 shows potential pseudoarthrosis without fracture at this time. No other complicating processes seen at this time MRI scan from09/13/21 at [facility] of Lumbar Spine: This is reviewed and demonstrates likely HNP L3-4 causing L lateral recess and foraminal stenosis with exiting nerve encroachment. There are no fractures noted. No lesions noted. Post op changes obscure the view at L4-S1 but there are no glaring large stenotic lesions that can be seen. CT myelogram would be better visualization of this along with assessment of fusion and hardware. On physical exam, Mr. Torres demonstrates significantly restricted lumbar ROM with left lower extremity radiculopathy and dermatomal deficit L3-L5. I have explained to the patient that as their condition progresses it will cause further neurological deficits and eventual paralysis. Based on the patients imaging, physical exam, and the rapid progression and disabling nature of their symptoms, at this time I recommend surgery in the form or a: lumbar (L3-S1) revision decompression and fusion. I discussed the risk and benefits of this procedure at length with Mr. Torres. The patient agreed to considered pursuing the procedure abovementioned. Prior to surgery, she should follow up with her PCP (Cardio, ID, IM etc) for clearance. Questions were invited and answered, and the patient wishes to proceed as outlined below. Currently, I am recommendin.lumbar (L3-S1) revision decompression and fusion Description of Procedure: L4-S1 open Decompression and fusion (dionicio) The patient was seen and examined in the preoperative area.All preoperative protocols were followed.Informed consent was obtained, risks and benefits of the procedure were discussed at length.Risks including bleeding infection damage to the surrounding tissue and risk of re-operation were discussed with the patient.Risk of anesthesia up to and including was discussed with the patient.These are outlined in the risk review.They were willing to accept these risks and all the risks of surgery.The patient was given a weight-based dose of antibiotics in the form of 2 g Ancef.The patient was seen and evaluated by the anesthesia team who deemed them fit for surgery. The site was marked, the patient was willing to proceed with the procedure. The patient was transferred to the operative suite by the Department of anesthesia. They were then drifted off to sleep by the department anesthesia and GETA was performed. The patient tolerated this well. Cuevas catheter was placed by nursing staff, a-traumatically. Once confirmation of lines and ventilation the patient was transferred to a prone Juan David table very carefully. All bony prominences including wrists, elbows, axilla, chest, hips, and thighs, and feet were padded very well. Special attention was paid to the genitalia, and these were padded accordingly. SCDs were placed on bilateral l ower extremities and were connected. Arms were well padded and placed on arm boards up and out in the 90/90 position. Once in position, again we confirmed good ventilation capabilities and that lines were running appropriately. The patients Lumbar spine was then exposed. 1010s were placed outlining the incision site. Standard alcohol was used to clean the incision site and allowed to dry. C-arm was used to needle localize the pedicles at L4-S1 and bio-мария the patient and confirm level for incision which was marked with a skin marker. Operative briefing was performed with all teams and everyone in agreement to proceed. The patient was then prepped and draped in a normal sterile fashion. Timeout was then performed, and all parties agreed with the procedure to be performed. Midline skin incision was made over the previously bio-marked area and dissection taken down over the SP of L3-S1. L4-S1 was taken out over facet joints and TPs and previous hardware identified. This hardware was removed. L4 screws were loose b/l. S1 screw on the left was broken and was removed as well. Fusion was then explored. There was motion between L4-5 still. L5-S1 seemed relatively robust. Rongure was used to remove excess and non functional bone. The pedicle paths were palpated with ball tip probe and were good. the wound was then copiously irrigated and debrided of any remaining tissue. Then using lateral imaging new screws which were upsized were placed into L4-S1 b/l. Once in position they were checked on AP and were in good position. Attention was then turned to decompression. Bilateral laminectomy, partial medial facetectomy and foraminotomies performed at L3-4 due to exhuberen scar tissue formation, ligamental hypertrophy and bony overgrowth. Good decompress ion was accomplished. Then b/l Laminectomy complete facetecomty and foraminotomy was done at L4-S1. At this point it was noted that there was a punctate dural lesion which was likely from the patients Myelogram. It was centrally located and was was leaking a small amount. We elected to fix this with a patch graft due to its location and leakage. 5-0 prolene was used to directly repair the lesion followed by a fat patch graft which was placed and secured. After decompression meticulous hemostasis was performed. the wound was then irrigated. Rods were then sized and selected and placed into S1 screws b/l. Set screws locked these in place and then sequentially reduced into L4 and L5 b/l for reduction of listhesis. This was accomplished. Set screws were then all placed and final tightened. A cross link was selected and placed and final tightened. TPs were then decorticated with high speed mike. The wound was the irrigated with 3L acne irrigation, 3L gentamicin irrigation and 3L NSS. Surgical was placed over the dura. Autograft and MagnatOs then placed in the posteriolateral gutters and impacted into place. Deep drain placed and secured to the skin. Final images confirmed good placement of hardware and good reduction of listhesis as well as mandaeism of height and lordosis. Tisseel Surgicel and Gelfoam were then placed on the dura to seal it. Valsalva to 40 mmHg revealed no further leakage. Vancomycin 2 g was placed within the wound. Deep drain was placed. we then proceeded with layered closure Facia was then closed with #1 PDS. Deep subq closed with 0 Vicryl. Superficial subq closed with 2-0 Vicryl and skin with uvaldo. Wound edges approximated very well. Wound was then cleaned with alcohol and dried. Wounds dressed with Optifoam dressings. The patient was then transferred off the table back to their hospital bed a- traumatically.They were extubated by the department of anesthesia.They were then transferred to PACU in stable condition having tolerated the procedure with no complications.
[2022-04-09] MEDS: GABAPENTIN 300 MG CAP PO SCH ×3 (08:32→21:50)
[2022-04-09] MEDS: SENNOSIDES-DOCUSATE SODIUM 1 EACH TAB PO PRN (08:32)
--- NOTE | 2022-04-09 09:09 | P.PN ---
Subjective Progress Note Date: 04/09/22 Principal diagnosis: 1. 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 LLE radiculopathy with paresthesias 3. LLE weakness 4. Mechanical low back pain Patient seen and examined this morning. She was resting in bed. RN notified that the surgical incision was saturated. Surgical dressing was removed and replaced, HALEY drain was discontinued. Current dressing is clean dry and intact. Patient states he has been up ambulatory to the restroom, tolerating activity well. Patient denies any numbness or tingling to bilateral lower extremities. Overall, he states that he feels improvement since procedure. Patient has been afebrile, denies nausea/vomiting, or chest pain. Objective - Vital Signs Vital signs: Vital Signs Temp 98.3 F 04/09/22 07:14 Pulse 96 04/09/22 07:14 Resp 18 04/09/22 07:14 BP 107/67 04/09/22 07:14 Pulse Ox 91 L 04/09/22 07:14 FiO2 Intake & Output 04/08/22 04/09/22 04/09/22 18:59 06:59 18:59 Intake Total 480 Output Total 2450 1465 Balance -2450 -985 Intake: Oral 480 Output: Drainage 100 15 Right Lower Back 100 15 Urine 2350 1450 Uretheral (Cuevas) 800 Other: # Voids 3 1 # Bowel Movements 0 - Exam Physical Examination General: The patient is awake and alert, in no acute distress Skin: Skin is warm and dry with no obvious rashes or lesions. Hairy patches absent, no dorsal skin dimples, no cafe au lait spots. Surgical incision to the lumbar region, dressing clean dry and intact. Eye: Pupils are equal, round and reactive to light, extra-ocular movements are intact; there is normal conjunctiva bilaterally. Neck: The neck is supple, there is no tenderness and ROM intact. Cardiovascular: There is a regular rate and rhythm. No murmur, rub or gallop is appreciated. Respiratory: Lungs are clear to auscultation, respirations are non-labored, breath sounds are equal. Gastrointestinal: Soft, non-distended, non-tender abdomen. Back: There is no tenderness to palpation in the midline, paralumbar, parathoracic or buttocks region. There is no obvious deformity . Musculoskeletal: ROM limited secondary to pain and stiffness from surgical procedure. Muscle strength in all major muscle groups of bilateral upper extremities 5/5, bilateral lower extremities 4/5. Neurological: CN 2-12 intact. There are no obvious motor or sensory deficits. Movement and coordination equal and intact. Sensory exam to light touch intact C5-T1 and intact from L2-S1. Reflexes 2/4 in bilateral upper and lower extremities. Negative Hoffmans, babinski, and clonus signs. Psychiatric: Cooperative, appropriate mood & affect, normal judgment. - Labs CBC & Chem 7: 04/09/22 07:12 04/09/22 07:12 Labs: Abnormal Lab Results - Last 24 Hours (Table) 04/08/22 04/08/22 04/09/22 Range/Units 04:38 04:38 07:12 WBC 10.84 H (4.50-10.00) X 10*3/uL RBC 4.38 L (4.40-5.60) X 10*6/uL Hgb 12.6 L 12.6 L (13.0-17.0) g/dL Hct 39.0 L 36.8 L (39.6-50.0) % Neutrophils # 8.82 H (1.80-7.70) X 10*3/uL Lymphocytes # 0.9 L (1.0-4.8) k/uL Carbon Dioxide 30.7 H (20.0-27.5) mmol/L BUN/Creatinine Ratio 7.92 L (12.00-20.00) Ratio Assessment and Plan Assessment: Postop day 2: Status post revision L3-S1 decompression and fusion 1. 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 LLE radiculopathy with paresthesias 3. LLE weakness 4. Mechanical low back pain Plan: Plan: -Appreciate storage consultant and team management. -Activity: Ambulate QID, OOB all meals, up and about, limit lifting bending twisting to less than 5 lbs. Use walker or cane if needed for stability. -Daily PT/OT, increase ambulation strength and balance. -Brace when up and about, not needed in bed or chair -Pain control: Adequate at this time -Meds: reviewed -GI ppx: senna, Miralax -DVT PPX: Heparin -Hygiene: Shower today. Maintain dressing clean and dry. Meticulous cleaning after BMs away from the incision site -Encourage IS 10x/hr -Dispo: Anticipate discharge home later today vs tomorrow with homecare *I reviewed and discussed this case with my attending Dr. Chan, whom has reviewed this chart and films and is in agreement with assessment and plan of care as outlined above. I have personally seen and examined the patient, performed the documentation and the assessment and plan as written. Number of minutes spent on the visit: [ ].
--- NOTE | 2022-04-09 11:17 | P.PN ---
Subjective Progress Note Date: 04/09/22 Patient is a 36-year-old male with asthma, eczema, and prior back surgery who presented for revision L3 through S1 decompression and fusion. Patient seen and examined at bedside. He had a rough night with pain, but improved now. No difficulty urinating at this time. No chest pain, nausea, shortness of breath. General: nontoxic, no distress, appears at stated age Derm: warm, dry Head: atraumatic, normocephalic, symmetric Eyes: EOMI, no lid lag, anicteric sclera Mouth: no lip lesion, mucus membranes moist Cardiovascular: S1S2 reg, no murmur, positive posterior tibial pulse bilateral, Lungs: CTA bilateral, no rhonchi, no rales , no accessory muscle use Abdominal: soft, nontender to palpation, no guarding, no appreciable organomegaly Ext: no gross muscle atrophy, no edema, no contractures Neuro: CN II-XI grossly intact, no focal neuro deficits Psych: Alert, oriented, appropriate affect Assessment/plan: 36-year-old status post L3 through S1 revision decompression and fusion. Asthma without exacerbation -resume prn albuterol on discharge. Med rec addressed Acute blood loss anemia with leukocytosis -HgB stable at 12.6 despite soak through on dressing - no need to recheck CBC. Urinating difficulties, chronic - Post void reviewed and <300 -referred to Dr. Zuniga for PCP on discharge. Medically optimized for discharged at the discretion of ortho. Thank you for allowing us to participate in the care of this pleasant patient. Do not hesitate to contact us with questions. Someone can be reached from the [facility] hospitalist group all hours of the day at [phone] or via perfect serve. Objective - Vital Signs Vital signs: Vital Signs Temp 98.3 F 04/09/22 07:14 Pulse 96 04/09/22 07:14 Resp 18 04/09/22 07:14 BP 107/67 04/09/22 07:14 Pulse Ox 94 L 04/09/22 09:23 FiO2 Intake & Output 04/08/22 04/09/22 04/09/22 18:59 06:59 18:59 Intake Total 480 Output Total 2450 1465 Balance -2450 -985 Intake: Oral 480 Output: Drainage 100 15 Right Lower Back 100 15 Urine 2350 1450 Uretheral (Cuevas) 800 Other: # Voids 3 1 # Bowel Movements 0 - Labs CBC & Chem 7: 04/09/22 07:12 04/09/22 07:12 Labs: Abnormal Lab Results - Last 24 Hours (Table) 04/09/22 04/09/22 Range/Units 07:12 07:12 Hgb 12.6 L (13.0-17.5) gm/dL Hct 36.8 L (39.0-53.0) % Lymphocytes # 0.9 L (1.0-4.8) k/uL Sodium 135 L (137-145) mmol/L Carbon Dioxide 33 H (22-30) mmol/L
[2022-04-09] MEDS: oxyCODONE-APAP 5-325MG 1 EACH TAB PO PRN ×2 (18:41→23:54)
[2022-04-09] MEDS: CYCLOBENZAPRINE 5 MG TAB PO SCH (21:50)
[2022-04-10] MEDS: oxyCODONE-APAP 5-325MG 1 EACH TAB PO PRN ×2 (03:57→09:46)
[2022-04-10] MEDS: LACTATED RINGERS 1,000 ML IV SCH (04:08)
[2022-04-10] MEDS: ACETAMINOPHEN TAB 325 MG TAB PO SCH (06:26)
[2022-04-10 08:33] VITALS: BP 91/60; PULSE 77; RESP 17; TEMP 98.8
--- NOTE | 2022-04-10 09:07 | P.PN ---
Subjective Progress Note Date: 04/10/22 Principal diagnosis: 1. 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 LLE radiculopathy with paresthesias 3. LLE weakness 4. Mechanical low back pain patient was seen at bedside this morning lying semirecumbent position. Patient says he is having mostly low back pain at this time. Patient says there is some radiation of pain down both his legs. Patient feels that numbness and the tingling in his left lower extremity has subsided somewhat. Patient says he has urinated several times since reid/catheter was removed. Patient says he did have a small bowel movement is morning. Patient is looking forward to going home today. patient denies chest pain, fever, shortness breath, nausea, vomiting, vision, loss of bowel/bladder control. Objective - Vital Signs Vital signs: Vital Signs Temp 98.8 F 04/10/22 07:03 Pulse 77 04/10/22 07:03 Resp 17 04/10/22 07:03 BP 91/60 04/10/22 07:03 Pulse Ox 94 L 04/10/22 07:56 FiO2 Intake & Output 04/09/22 04/10/22 04/10/22 18:59 06:59 18:59 Intake Total 570 Output Total 300 1200 Balance 270 -1200 Intake: Oral 570 Output: Urine 300 1200 Other: Voiding Method Toilet Toilet Urinal Urinal # Voids 3 2 - Exam surgical dressing present at midline on lumbar spine. Some spotting present at proximal end of incision and distal end of incision. bulb drain removed yesterday. there is a bit of diminished/altered sensation in the L3, L4, L5 dermatomes in the left lower extremity. Patient feels that it is improving since surgery. Sensation is equal, symmetric, bilateral intact throughout the upper extremities and in the right lower extremity. Mild TTP over midline lumbar spine. NTTP throughout rest of exam. There is some limited ROM in bilateral hips in flexion/ext due to referred pain to low back. Full ROM in bilateral knees in flexion/ext and ankles in dorsi/plantar flexion bilaterally. Full ROM throguhout BUE. Motor exam 5/5 in all major motor groups in BUE and BLE. Neurovascular status is intact bilaterally. Cap refill under 3 seconds in his upper extremities. Radial pulse intact, 2+ bilaterally. Negative Homans bilaterally. - Labs CBC & Chem 7: 04/09/22 07:12 04/09/22 07:12 Assessment and Plan Assessment: 1. 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 LLE radiculopathy with paresthesias 3. LLE weakness 4. Mechanical low back pain - postoperative day 3 status post revision L3-S1 decompression fusion Plan: 1. L3-4 ASD with HNP and L foraminal and LR stenosis; LLE radiculopathy with paresthesias; LLE weakness; Mechanical low back pain - L3-S1 revision decom pression fusion surgery performed 04/07/2022. Patient stable at bedside this morning. Dressing in place at this time. Change before discharge later today. Discharge home today with health services 2. Appreciate medical management 3. Pain management - oxycodone; gabapentin; flexeril; 4. DVT ppx - mechanical 5. GI ppx - senna 6. PT/OT - WBAT w/walker if needed 7. Encourage incentive spirometer use 8. Discharge planning - Home with health services today Time with Patient: Less than 30
--- NOTE | 2022-04-10 09:27 | P.DS ---
Providers Date of admission: 04/07/22 07:11 Expected date of discharge: 04/10/22 Attending physician: Ehsan Chan DO Consults: 04/07/22 12:28 Consult Physician Routine Consulting Provider: Ailyn Lane Consult Reason/Comments: Medical Management s/p L3-S1 decompr-fusion Do you want consulting provider notified?: Yes Primary care physician: Stated None Hospital Course: Date of admission: 04/07/2022 Date of discharge: 04/10/2022 Admission diagnosis: 1. 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 LLE radiculopathy with paresthesias 3. LLE weakness 4. Mechanical low back pain Discharge diagnosis: Same Attending physician: Dr. Chan Surgical procedures: revision L3-S1 decompression fusion Brief history: Patient is a 36-year-old male with a history of L3-4 ASD with herniated nucleus pulposus and left foraminal and LR stenosis; lower extremity radiculopathy with paresthesias; left lower extremity weakness; mechanical low back pain. At this point patient has failed conservative treatment measures and has opted to proceed with a elective revision L3-S1 decompression fusion. Hospital course: Details of patient's surgery can be found in operative report. Patient tolerated the procedure well and was subsequently transported to orthopedic floor. Patient's orthopeidc and medical care was provided daily. Patient had daily laboratory tests performed for evaluation of overall blood counts. Patient had daily physical therapy to include strengthening range of motion as well as education with walker ambulation. Patient was noted to have a relatively uneventful postoperative course. Patient reported satisfactory pain control with oral pain medications by postoperative day 3. Patient showed satisfactory progress with physical therapy. Patient moved steadily through the program and had no difficulty meeting the goals by postoperative day 3. Given patient's otherwise satisfactory course and having met physical therapy goals, plan is to discharge patient home with health services on postoperative day 3. Discharge condition/disposition: Patient will be discharged home with health se rvices in stable condition. Discharge medications: Instructions are given on resumption of patient's normal daily medications per primary care recommendation, in addition patient will be prescribed oxycodone 5 mg/325 mg; Flexeril; gabapentin; Duricef; senna. Spine Discharge and Recovery Instructions Date of Surgery: 04/07/2022 Diagnosis: 1. 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 LLE radiculopathy with paresthesias 3. LLE weakness 4. Mechanical low back pain Procedure: revision L3-S1 decompression fusion Medications: See medication list All medication refills should be obtained through your primary care doctor or your clinic spine surgeon. Please discuss prescription refills at your follow up appointment. Do not call the hospital for medication refills. Dressing: Leave your dressing in place for a total of 5 days post operatively. Then you may remove your dressing and leave open to air. Keep the area clean and if not able to keep area clean, then cover with sterile gauze and tape. Showering: You may shower 3 days after your procedure allowing soap and water to run over incision. Do not scrub. Do not soak. Blot dry. Follow up: Please confirm a follow up appointment with your surgeon 3 weeks post operatively. Please make an appointment to follow up with your PCP in 1-2 weeks after surgery for evaluation 3 phase, 3-week plan POST OP WEEKS 1-3 1. Lifting/carrying/pushing/pulling limited to less than 5 pounds. 2. Do not sit for longer than 15 minutes at one time. Get up and walk around. Prolonged sitting is NOT advised. If you lay down, see if you can tolerate laying down on you front (belly side) 3. Walk for periods of 15 minutes = 1 mile but no longer; do it multiple times times each day. 4. Ice your low back after activity. POST OP WEEKS 3-6 1. Lifting limited to less than 20 pounds. 2. Do not sit for longer than 30 minutes at a time. Frequently change positions. Use a sit-to stand workstation or take frequent breaks from sitting if you have returned to work. 3. Walk for 30 minutes each day. If possible, do these three or more times a day POST OP WEEKS 6+ At your 6-week appointment we will give you a physical therapy referral to focus on a core stabilization and strengthening program. You should also work on leg & buttock strengthening, hamstring & quadriceps stretching, and continue a low impact aerobic activity program such as swimming, walking, or riding a stationary bicycle. During the initial 6 weeks after your surgery, you are at the highest risk of re-injuring your spine. You should generally avoid BLTs (bending, lifting and twisting combination motions) and follow the above guidelines to reduce the chance of reinjury. You can anticipate post op appointments in our office at approximately 3 weeks and 6 weeks after your surgery. INCISION CARE: If your incision is not draining you do NOT need to cover it with a dressing. Keep your incision clean, dry and intact. In most cases, we apply skin glue, uvaldo or sutures to the incision at the time of surgery. This will be like a crust or have the appearance of a scab and will fall off in time on its own. The stitches or uvaldo need to be removed at 3 weeks post op appointment. You may begin to shower 3 days after surgery (this allows the glue to rodriguez well). However, please avoid scrubbing the incision site or peeling off any of the skin glue. This will ensure optimal healing of your incision. Also, during this time avoid soaking the incision area in water - this includes swimming pools, hot tubs or baths. No ointments, lotions or oils on the incision until your surgeon allows. Leave uvaldo, sutures or glue in place. Neurological dysfunction that comes on suddenly can also be a sign of a stroke. Below some common symptoms of a stroke are listed: B - balance difficulty such as sudden onset walking or leaning to one side - NEW E - eye problem such as sudden double vision or trouble seeing on one side - NEW F - Facial weakness or numbness on one side - NEW A - Arm or leg weakness or numbness on one side - NEW S - Slurred speech or difficulty with word finding - NEW T - Time is BRAIN! Call 911 as soon as you recognize these symptoms Diet: Consume a regular diet rich in vegetables and lean protein such as chicken or fish. You should consume in a ratio of approximately 20% fats|40% carbohydrates|40%protein. Vegetables, sweet potatoes, brown rice or quinoa are examples of good carbohydrates. Chips, white bread, cookies and sweets/sugar are examples of bad carbohydrates. Limit your bad carbs, go wild with good carbs. "Life's Simple 7" Guidelines as per [place] [employer] These will help you reclaim your life after surgery and dragline operator helper in your recovery, keeping in mind your restrictions. (1) Get Active. Physical activity can help people lose weight, control high blood pressure and cholesterol, feel emotionally better, and sleep better. (2) Control Cholesterol. Avoid a diet high in saturated fat, trans fat, & cholesterol. Limit whole milk & cream, ice cream, butter, egg yolks, processed meats (like sausage and hot dogs), and fatty meats. Choose healthy foods that are low in saturated fat, trans fat and cholesterol which include: Fruits and vegetables, fiber rich grain products (like whole grain pasta and brown rice), lean meat such as chicken, fish, nuts, seeds, and legumes. (3) Eat Better. Eat small portions. Shop at the grocery with a list and do not stray from it. Tips for a healthy diet include: Limit sodium intake to less than 1500mg daily, avoid prepackaged, processed, and fast foods, choose a diet rich in fruits, vegetables, and whole grain, high fiber foods, and limit saturated & cholesterol in your diet. (4) Manage Blood Pressure. If you have high blood pressure, you should have a cuff at home so that you can check your blood pressure regularly. Be sure you have a good cuff. An arm one is generally better than a wrist one. Bring the cuff to a doctor's appointment to validate that the measurements that your cuff are taking are accurate. Take your blood pressure twice daily when you are sitting down and relaxing. Record the numbers in a log and bring this log with you to your doctors' appointments. (5) Lose Weight if your BMI is above 25. A healthy BMI is between 19-25. To calculate Your BMI, you may use a Standard BMI Calculator on the NIH BMI website: <www.nhlbi.nih.gov/guidelines/obesity/BMI/bmicalc.htm>. Weigh oneself daily. If you are overweight, set a goal to lose weight. A pound a week loss if needed is a good target. (6) Reduce Blood Sugar. Limit foods and liquids with "added sugars." (Added sugars include sucrose, fructose, glucose, maltose, dextrose, high fructose corn syrup, corn syrup, concentrated fruit juice and honey). (7) Stop Smoking. If you smoke, quitting smoking is one of the best things that you can do for your health. Smoking increases your risk of heart attack, stroke, and peripheral vascular disease, which is a build-up of plaque in your arteries. Please discard all the cigarettes and lighters in your house. Have a plan for what you will do when you have the urge to smoke. Direct and second- hand smoke shortens your life as well as the lives of your family, friends and others around you. For your health and the health of those around you, please consider quitting! Proper Bending Body Mechanics: Maintain a wide stance with one foot slightly in front of the other. Keep your back straight. Bend utilizing the strength in your hips and knees. Do not bend at the waist. Maintain the lifted object at your waist-level close to your body. Avoid lifting weight that causes immediately pain or pain anywhere in the body afterwards. Smoking/Nicotine If there was ever one thing that you could do to increase your overall health, decrease your risk of cardiovascular problems by about 39% the second you make the choice, it is to STOP SMOKING. Your body's most instant gratification is the second you stop smoking. We have all heard the studies, read the articles but it is true, smoking is extremely bad for your overall health, and moreover it is detrimental to your bone health. Nicotine, IN ANY FORM, kills bone cells, prevents your body from healing fractures, and significantly prolongs healing after surgery. In spine surgery specifically, it increases your risk of not healing your bones to create a fusion and increases your risk of having a revision surgery due to this up to 60%. I know it is hard. I know it feels impossible. But there are ways. Take control of your life. We are here to help you through it. And when you are ready, ask us and we can direct you to help if you desire. Use the START Plan to Quit Smoking (please visit the Helpguide.org website listed below for more information): S = Set a quit date. Choose a date within the next 2 weeks, so you have enough time to prepare without losing your motivation to quit. If you mainly smoke at work, quit on the weekend, so you have a few days to adjust to the change. T = Tell family, friends, and co-workers that you plan to quit. Let your friends and family in on your plan to quit smoking and tell them you need their support and encouragement to stop. Look for a quit ludin who wants to stop smoking as well. You can help each other get through the rough times. A = Anticipate and plan for the challenges you'll face while quitting. Most people who begin smoking again do so within the first 3 months. You can help yourself make it through by preparing ahead for common challenges, such as nicotine withdrawal and cigarette cravings. R = Remove cigarettes and other tobacco products from your home, car, and work. Throw away all your cigarettes (no emergency pack!), lighters, ashtrays, and matches. Wash your clothes and freshen up anything that smells like smoke. Shampoo your car, clean your drapes and carpet, and steam your furniture. T = Talk to your doctor about getting help to quit. Your doctor can prescribe medication to help with withdrawal and suggest other alternatives. If you can't see a doctor, you can get many products over the counter at your local pharmacy or grocery store, including the nicotine patch, nicotine lozenges, and nicotine gum. Resources for Quitting Smoking: <https://www.[place].gov/documents/[facility]/Quit_Tobacco_Resources_for_patients_313 480_7.pdf> Supplementation: Take recommended dosages of Vitamin D and Calcium to help fortify your bones and help them to heal. See your health maintenance packet for dosages and recommended levels. DVT/VTE prophylaxis: You will be given compression stockings from the hospital. Wear these daily for the first two weeks after surgery. You may take them off at night. You may be prescribed a medication to help thin your blood. Take this as directed. If you are not prescribed this medication, early and frequent ambulation has been shown to be the best prophylaxis to deep vein thrombosis and sequelae related to this event. Assessment: 1. 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 LLE radiculopathy with paresthesias 3. LLE weakness 4. Mechanical low back pain Procedures: revision L3-S1 decompression fusion Patient Condition at Discharge: Good Plan - Discharge Summary Discharge Rx Participant: Yes New Discharge Prescriptions: New Gabapentin [Neurontin] 300 mg PO TID #27 cap cefaDROXiL [Duricef] 500 mg PO Q12HR 5 Days #10 cap Cyclobenzaprine [Flexeril] 5 mg PO TID #21 tablet oxyCODONE HCL/ACETAMINOPHEN [Oxycodone-Acetaminophen 5-325] 1 each PO Q6H #24 tab Sennosides/Docusate Sodium [Senna Plus 8.6-50 mg Softgel] 1 each PO DAILY #20 capsule Continue Albuterol Inhaler [Ventolin Hfa Inhaler] 1 - 2 puff INHALATION Q6H PRN PRN Reason: Shortness Of Breath No Action Acetaminophen Tab [Tylenol Tab] 500 mg PO Q6H PRN PRN Reason: Pain Meloxicam [Mobic] 7.5 mg PO DAILY Cyclobenzaprine [Flexeril] 5 mg PO TID PRN PRN Reason: Muscle Spasm Gabapentin [Neurontin] 300 mg PO TID Ibuprofen 800 mg PO Q8H PRN PRN Reason: Pain diphenhydrAMINE [Benadryl] 25 mg PO HS PRN PRN Reason: Insomnia Discharge Medication List Acetaminophen Tab [Tylenol Tab] 500 mg PO Q6H PRN 12/19/21 [History] Cyclobenzaprine [Flexeril] 5 mg PO TID PRN 12/19/21 [History] Gabapentin [Neurontin] 300 mg PO TID 12/19/21 [History] Meloxicam [Mobic] 7.5 mg PO DAILY 12/19/21 [History] Ibuprofen 800 mg PO Q8H PRN 12/30/21 [History] Albuterol Inhaler [Ventolin Hfa Inhaler] 1 - 2 puff INHALATION Q6H PRN 03/24/22 [History] diphenhydrAMINE [Benadryl] 25 mg PO HS PRN 03/24/22 [History] Cyclobenzaprine [Flexeril] 5 mg PO TID #21 tablet 04/10/22 [Rx] Gabapentin [Neurontin] 300 mg PO TID #27 cap 04/10/22 [Rx] Sennosides/Docusate Sodium [Senna Plus 8.6-50 mg Softgel] 1 each PO DAILY #20 capsule 04/10/22 [Rx] cefaDROXiL [Duricef] 500 mg PO Q12HR 5 Days #10 cap 04/10/22 [Rx] oxyCODONE HCL/ACETAMINOPHEN [Oxycodone-Acetaminophen 5-325] 1 each PO Q6H #24 tab 04/10/22 [Rx] Follow up Appointment(s)/Referral(s): Antonio Zuniga MD [REFERRING] - 1 Week [facility], [NON-STAFF] - As Needed Ehsan Chan DO [Doctor of Osteopathic Medicine] - 2 Weeks Activity/Diet/Wound Care/Special Instructions: Spine Discharge and Recovery Instructions Medications: See medication list All medication refills should be obtained through your primary care doctor or your clinic spine surgeon. Please discuss prescription refills at your follow up appointment. Do not call the hospital for medication refills. Dressing: Leave your dressing in place for a total of 5 days post operatively. Then you may remove your dressing and leave open to air. Keep the area clean and if not able to keep area clean, then cover with sterile gauze and tape. Showering: You may shower 3 days after your procedure allowing soap and water to run over incision. Do not scrub. Do not soak. Blot dry. Follow up: Please confirm a follow up appointment with your surgeon 3 weeks post operatively. Please make an appointment to follow up with your PCP in 1-2 weeks after surgery for evaluation 3 phase, 3-week plan POST OP WEEKS 1-3 1. Lifting/carrying/pushing/pulling limited to less than 5 pounds. 2. Do not sit for longer than 15 minutes at one time. Get up and walk around. Prolonged sitting is NOT advised. If you lay down, see if you can tolerate laying down on you front (belly side) 3. Walk for periods of 15 minutes = 1 mile but no longer; do it multiple times times each day. 4. Ice your low back after activity. POST OP WEEKS 3-6 1. Lifting limited to less than 20 pounds. 2. Do not sit for longer than 30 minutes at a time. Frequently change positions. Use a sit-to stand workstation or take frequent breaks from sitting if you have returned to work. 3. Walk for 30 minutes each day. If possible, do these three or more times a day POST OP WEEKS 6+ At your 6-week appointment we will give you a physical therapy referral to focus on a core stabilization and strengthening program. You should also work on leg & buttock strengthening, hamstring & quadriceps stretching, and continue a low impact aerobic activity program such as swimming, walking, or riding a stationary bicycle. During the initial 6 weeks after your surgery, you are at the highest risk of re-injuring your spine. You should generally avoid BLTs (bending, lifting and twisting combination motions) and follow the above guidelines to reduce the chance of reinjury. You can anticipate post op appointments in our office at approximately 3 weeks and 6 weeks after your surgery. INCISION CARE: If your incision is not draining you do NOT need to cover it with a dressing. Keep your incision clean, dry and intact. In most cases, we apply skin glue, uvaldo or sutures to the incision at the time of surgery. This will be like a crust or have the appearance of a scab and will fall off in time on its own. The stitches or uvaldo need to be removed at 3 weeks post op appointment. You may begin to shower 3 days after surgery (this allows the glue to rodriguez well). However, please avoid scrubbing the incision site or peeling off any of the skin glue. This will ensure optimal healing of your incision. Also, during this time avoid soaking the incision area in water - this includes swimming pools, hot tubs or baths. No ointments, lotions or oils on the incision until your surgeon allows. Leave uvaldo, sutures or glue in place. Neurological dysfunction that comes on suddenly can also be a sign of a stroke. Below some common symptoms of a stroke are listed: B - balance difficulty such as sudden onset walking or leaning to one side - NEW E - eye problem such as sudden double vision or trouble seeing on one side - NEW F - Facial weakness or numbness on one side - NEW A - Arm or leg weakness or numbness on one side - NEW S - Slurred speech or difficulty with word finding - NEW T - Time is BRAIN! Call 911 as soon as you recognize these symptoms Diet: Consume a regular diet rich in vegetables and lean protein such as chicken or fish. You should consume in a ratio of approximately 20% fats|40% carbohydrates|40%protein. Vegetables, sweet potatoes, brown rice or quinoa are examples of good carbohydrates. Chips, white bread, cookies and sweets/sugar are examples of bad carbohydrates. Limit your bad carbs, go wild with good carbs. "Life's Simple 7" Guidelines as per [place] [employer] These will help you reclaim your life after surgery and dragline operator helper in your recovery, keeping in mind your restrictions. (1) Get Active. Physical activity can help people lose weight, control high blood pressure and cholesterol, feel emotionally better, and sleep better. (2) Control Cholesterol. Avoid a diet high in saturated fat, trans fat, & cholesterol. Limit whole milk & cream, ice cream, butter, egg yolks, processed meats (like sausage and hot dogs), and fatty meats. Choose healthy foods that are low in saturated fat, trans fat and cholesterol which include: Fruits and vegetables, fiber rich grain products (like whole grain pasta and brown rice), lean meat such as chicken, fish, nuts, seeds, and legumes. (3) Eat Better. Eat small portions. Shop at the grocery with a list and do not stray from it. Tips for a healthy diet include: Limit sodium intake to less than 1500mg daily, avoid prepackaged, processed, and fast foods, choose a diet rich in fruits, vegetables, and whole grain, high fiber foods, and limit saturated & cholesterol in your diet. (4) Manage Blood Pressure. If you have high blood pressure, you should have a c uff at home so that you can check your blood pressure regularly. Be sure you have a good cuff. An arm one is generally better than a wrist one. Bring the cuff to a doctor's appointment to validate that the measurements that your cuff are taking are accurate. Take your blood pressure twice daily when you are sitting down and relaxing. Record the numbers in a log and bring this log with you to your doctors' appointments. (5) Lose Weight if your BMI is above 25. A healthy BMI is between 19-25. To calculate Your BMI, you may use a Standard BMI Calculator on the NIH BMI website: <www.nhlbi.nih.gov/guidelines/obesity/BMI/bmicalc.htm>. Weigh oneself daily. If you are overweight, set a goal to lose weight. A pound a week loss if needed is a good target. (6) Reduce Blood Sugar. Limit foods and liquids with "added sugars." (Added sugars include sucrose, fructose, glucose, maltose, dextrose, high fructose corn syrup, corn syrup, concentrated fruit juice and honey). (7) Stop Smoking. If you smoke, quitting smoking is one of the best things that you can do for your health. Smoking increases your risk of heart attack, stroke, and peripheral vascular disease, which is a build-up of plaque in your arteries. Please discard all the cigarettes and lighters in your house. Have a plan for what you will do when you have the urge to smoke. Direct and second- hand smoke shortens your life as well as the lives of your family, friends and others around you. For your health and the health of those around you, please consider quitting! Proper Bending Body Mechanics: Maintain a wide stance with one foot slightly in front of the other. Keep your back straight. Bend utilizing the strength in your hips and knees. Do not bend at the waist. Maintain the lifted object at your waist-level close to your body. Avoid lifting weight that causes immediately pain or pain anywhere in the body afterwards. Smoking/Nicotine If there was ever one thing that you could do to increase your overall health, decrease your risk of cardiovascular problems by about 39% the second you make the choice, it is to STOP SMOKING. Your body's most instant gratification is the second you stop smoking. We have all heard the studies, read the articles but it is true, smoking is extremely bad for your overall health, and moreover it is detrimental to your bone health. Nicotine, IN ANY FORM, kills bone cells, prevents your body from healing fractures, and significantly prolongs healing after surgery. In spine surgery specifically, it increases your risk of not healing your bones to create a fusion and increases your risk of having a revision surgery due to this up to 60 %. I know it is hard. I know it feels impossible. But there are ways. Take control of your life. We are here to help you through it. And when you are ready, ask us and we can direct you to help if you desire. Use the START Plan to Quit Smoking (please visit the Helpguide.org website listed below for more information): S = Set a quit date. Choose a date within the next 2 weeks, so you have enough time to prepare without losing your motivation to quit. If you mainly smoke at work, quit on the weekend, so you have a few days to adjust to the change. T = Tell family, friends, and co-workers that you plan to quit. Let your friends and family in on your plan to quit smoking and tell them you need their support and encouragement to stop. Look for a quit ludin who wants to stop smoking as well. You can help each other get through the rough times. A = Anticipate and plan for the challenges you'll face while quitting. Most people who begin smoking again do so within the first 3 months. You can help yourself make it through by preparing ahead for common challenges, such as nicotine withdrawal and cigarette cravings. R = Remove cigarettes and other tobacco products from your home, car, and work. Throw away all your cigarettes (no emergency pack!), lighters, ashtrays, and matches. Wash your clothes and freshen up anything that smells like smoke. Shampoo your car, clean your drapes and carpet, and steam your furniture. T = Talk to your doctor about getting help to quit. Your doctor can prescribe medication to help with withdrawal and suggest other alternatives. If you can't see a doctor, you can get many products over the counter at your local pharmacy or grocery store, including the nicotine patch, nicotine lozenges, and nicotine gum. Resources for Quitting Smoking: <https://www.[place].gov/documents/[facility]/Quit_Tobacco_Resources_for_patients_313 480_7.pdf> Supplementation: Take recommended dosages of Vitamin D and Calcium to help fortify your bones and help them to heal. See your health maintenance packet for dosages and recommended levels. DVT/VTE prophylaxis: You will be given compression stockings from the hospital. Wear these daily for the first two weeks after surgery. You may take them off at night. You may be prescribed a medication to help thin your blood. Take this as directed. If you are not prescribed this medication, early and frequent ambulation has been shown to be the best prophylaxis to deep vein thrombosis and sequelae related to this event. Discharge Disposition: HOME WITH HOME HEALTH SERVICES
[2022-04-10] MEDS: CYCLOBENZAPRINE 5 MG TAB PO SCH (09:49)
[2022-04-10] MEDS: GABAPENTIN 300 MG CAP PO SCH (09:49)
== END 2022-04-10 10:54 | disposition home health service (06) | DRG 460 ==
LOC: 2ORMAIN 07:11 → 4SSUR 14:59
PROVIDERS: ADMIT Orthopaedic Surgery; ATTEND Orthopaedic Surgery
PROC: 0SG00AJ Fusion of Lumbar Vertebral Joint with Interbody Fusion Device, Posterior Approach, Anterior Column, Open Approach (ICD-10-PCS; 2022-04-07)
PROC: 00UT07Z Supplement Spinal Meninges with Autologous Tissue Substitute, Open Approach (ICD-10-PCS; 2022-04-07)
PROC: 0SG30AJ Fusion of Lumbosacral Joint with Interbody Fusion Device, Posterior Approach, Anterior Column, Open Approach (ICD-10-PCS; 2022-04-07)
PROC: 01NB0ZZ Release Lumbar Nerve, Open Approach (ICD-10-PCS; 2022-04-07)
PROC: 01NR0ZZ Release Sacral Nerve, Open Approach (ICD-10-PCS; 2022-04-07)
PROC: 0WPL0YZ Removal of Other Device from Lower Back, Open Approach (ICD-10-PCS; principal; 2022-04-07 08:45)
DX: M47.26 Other spondylosis with radiculopathy, lumbar region (principal); Q21.10 Atrial septal defect, unspecified; M96.0 Pseudarthrosis after fusion or arthrodesis; M48.061 Spinal stenosis, lumbar region without neurogenic claudication; M43.27 Fusion of spine, lumbosacral region; M51.26 Other intervertebral disc displacement, lumbar region; M48.07 Spinal stenosis, lumbosacral region; G89.18 Other acute postprocedural pain; G47.9 Sleep disorder, unspecified; G89.29 Other chronic pain; M51.16 Intervertebral disc disorders with radiculopathy, lumbar region; M47.27 Other spondylosis with radiculopathy, lumbosacral region; W00.0XXS Fall on same level due to ice and snow, sequela; Y83.8 Other surgical procedures as the cause of abnormal reaction of the patient, or of later complication, without mention of misadventure at the time of the procedure; Y79.1 Therapeutic (nonsurgical) and rehabilitative orthopedic devices associated with adverse incidents; Z79.891 Long term (current) use of opiate analgesic; Z79.899 Other long term (current) drug therapy; Z79.1 Long term (current) use of non-steroidal anti-inflammatories (NSAID); Z88.8 Allergy status to other drugs, medicaments and biological substances
CPT/HCPCS: 72100; 72131; 80048; 85025; 86850; 86900; 86901; 94640; 94760

== ENCOUNTER 2023-04-23 19:47 | Emergency (ER) | payer OTHER ==
--- NOTE | 2023-04-23 20:07 | ED ---
General Adult HPI - General Source: patient Mode of arrival: ambulatory Limitations: no limitations <Jeremy Gresham - Last Filed: 04/23/23 20:06> - General Source: patient, RN notes reviewed Mode of arrival: ambulatory Limitations: no limitations <Shama Mejia - Last Filed: 04/23/23 22:28> - General Stated complaint: post op complication - foot surgery Time Seen by Provider: 04/23/23 20:06 - History of Present Illness Initial comments: 37-year-old male presenting with chief complaint of wound dehiscence. Patient had recent bunion removal by his web mobile designer. He had the stitches removed today and then later on at home accidentally kicked a wall resulting in one of the wounds to open up. (Jeremy Gresham) Patient is a 37 year old male presenting to the ER with a chief complaint of wound dehiscense. Patient had a tailor bunion removed last thursday and had the sutures removed earlier today. He states he accidentally kick a wall and the wound started the bleed. He had difficulty getting bleeding under control. Patient states he is worried the wound opened back up. Patient is endorsing pain over the region. Denies any chest pain, shortness of breath, fevers, chills, surrounding erythema of wound or purulent drainage. (Shama Mejia) - Related Data Home Medications Medication Instructions Recorded Confirmed Acetaminophen Tab [Tylenol Tab] 500 mg PO Q6H PRN 12/19/21 04/03/22 Cyclobenzaprine [Flexeril] 5 mg PO TID PRN 12/19/21 04/03/22 Gabapentin [Neurontin] 300 mg PO TID 12/19/21 04/03/22 Meloxicam [Mobic] 7.5 mg PO DAILY 12/19/21 04/03/22 Ibuprofen 800 mg PO Q8H PRN 12/30/21 04/03/22 Albuterol Inhaler [Ventolin Hfa 1 - 2 puff INHALATION Q6H PRN 03/24/22 04/03/22 Inhaler] diphenhydrAMINE [Benadryl] 25 mg PO HS PRN 03/24/22 04/03/22 Previous Rx's Medication Instructions Recorded Cyclobenzaprine [Flexeril] 5 mg PO TID #21 tablet 04/10/22 Gabapentin [Neurontin] 300 mg PO TID #27 cap 04/10/22 Sennosides/Docusate Sodium [Senna 1 each PO DAILY #20 capsule 04/10/22 Plus 8.6-50 mg Softgel] cefaDROXiL [Duricef] 500 mg PO Q12HR 5 Days #10 cap 04/10/22 oxyCODONE HCL/ACETAMINOPHEN 1 each PO Q6H #24 tab 04/10/22 [Oxycodone-Acetaminophen 5-325] Allergies Allergy/AdvReac Type Severity Reaction Status Date / Time No Known Allergies Allergy Verified 04/23/23 20:07 Review of Systems ROS Other: All systems not noted in ROS Statement are negative. <Jeremy Gresham - Last Filed: 04/23/23 20:06> ROS Other: All systems not noted in ROS Statement are negative. <Shama Mejia - Last Filed: 04/23/23 22:28> ROS Statement: Those systems with pertinent positive or pertinent negative responses have been documented in the HPI. Past Medical History Past Medical History: Asthma, Musculoskeletal Disorder, Skin Disorder Additional Past Medical History / Comment(s): back pain, herniated disc, pain left leg, eczema legs & arms, this surg. was resceduled from last week History of Any Multi-Drug Resistant Organisms: None Reported Past Surgical History: Appendectomy, Back Surgery Additional Past Surgical History / Comment(s): back surgery x4, recent pain procedure Past Anesthesia/Blood Transfusion Reactions: No Reported Reaction Past Psychological History: Anxiety, Panic Disorder Smoking Status: Never smoker Past Alcohol Use History: None Reported Past Drug Use History: Marijuana Additional Drug Use History / Comment(s): smokes daily - Past Family History Father Family Medical History: No Reported History <Jeremy Gresham - Last Filed: 04/23/23 20:06> General Exam <Jeremy Gresham - Last Filed: 04/23/23 20:06> General appearance: alert, in no apparent distress Head exam: Present: atraumatic, normocephalic, normal inspection Eye exam: Present: normal appearance, PERRL, EOMI. Absent: scleral icterus, conjunctival injection, periorbital swelling Respiratory exam: Present: normal lung sounds bilaterally. Absent: respiratory distress, wheezes, rales, rhonchi, stridor Cardiovascular Exam: Present: regular rate, normal rhythm, normal heart sounds. Absent: systolic murmur, diastolic murmur, rubs, gallop, clicks Extremities exam: Present: normal inspection, full ROM, normal capillary refill, other (Surgical incision over distal left fifth metatarsal. Approximately 3 cm in length. No surrounding erythema or drainage. There is minor dehiscence.). Absent: tenderness, pedal edema, joint swelling, calf tenderness Neurological exam: Present: alert, oriented X3, CN II-XII intact Psychiatric exam: Present: normal affect, normal mood Skin exam: Present: warm, dry, intact, normal color. Absent: rash <Shama Mejia - Last Filed: 04/23/23 22:28> - General Exam Comments Initial Comments: Visual Physical Exam Vital signs reviewed General: Well-appearing, nontoxic, no acute distress. Head: Normocephalic, atraumatic Eyes: PERRLA, EOMI ENT: Airway patent Chest: Nonlabored breathing Skin: No visual rash, normal skin tone Neuro: Alert and oriented 3 Musculoskeletal: No gross abnormalities (Jeremy Gresham) Course Vital Signs 04/23/23 04/23/23 20:05 20:28 Temperature 98 F Pulse Rate 78 Respiratory 18 16 Rate Blood Pressure 124/75 O2 Sat by Pulse 96 Oximetry Medical Decision Making <Jeremy Gresham - Last Filed: 04/23/23 20:06> <Shama Mejia - Last Filed: 04/23/23 22:28> - Medical Decision Making I performed the quick note portion of this visit, electronically signed Jeremy Gresham PA-C (Jeremy Gresham) Was pt. sent in by a medical professional or institution ([facility], GLOVE WRAPPER, urgent care, hospital, or alf...) When possible be specific @ -No Did you speak to anyone other than the patient for history (EMS, parent, family, police, friend...)? What history was obtained from this source @ -No Did you review nursing and triage notes (agree or disagree)? Why? @ -I reviewed and agree with nursing and triage notes Were old charts reviewed (outside hosp., previous admission, EMS record, old EKG, old radiological studies, urgent care reports/EKG's, alf records)? Report findings @ -No old charts were reviewed Differential Diagnosis (chest pain, altered mental status, abdominal pain women, abdominal pain men, vaginal bleeding, weakness, fever, dyspnea, syncope, headache, dizziness, GI bleed, back pain, seizure, CVA, palpatations, mental health, musculoskeletal)? @ -Cellulitis, wound dehiscence, laceration, abrasion, contusion this list not meant to be all-inclusive EKG interpreted by me (3pts min.). @ -None X-rays interpreted by me (1pt min.). @ -None done CT interpreted by me (1pt min.). @ -None done U/S interpreted by me (1pt. min.). @ -None done What testing was considered but not performed or refused? (CT, X-rays, U/S, labs)? Why? @ -None What meds were considered but not given or refused? Why? @ -None Did you discuss the management of the patient with other professionals (professionals i.e. , PA, GLOVE WRAPPER, lab, RT, psych nurse, social work associate, athletics teacher, teacher, major gifts officer, case management coordinator)? Give summary @ -No Was smoking cessation discussed for >3mins.? @ -No Was critical care preformed (if so, how long)? @ -No Were there social determinants of health that impacted care today? How? (Homelessness, low income, unemployed, alcoholism, drug addiction, transportation, low edu. Level, literacy, decrease access to med. care, halfway, rehab)? @ -No Was there de-escalation of care discussed even if they declined (Discuss DNR or withdrawal of care, Hospice)? DNR status @ -No What co-morbidities impacted this encounter? (DM, HTN, Smoking, COPD, CAD, Cancer, CVA, ARF, Chemo, Hep., AIDS, mental health diagnosis, sleep apnea, morbid obesity)? @ -None Was patient admitted / discharged? Hospital course, mention meds given and route, prescriptions, significant lab abnormalities, going to OR and other pertinent info. @ -Discharge. Patient is a 37 year old male presenting to the ER with a chief compliant of possible wound dehiscence. History and physical exam were completed. Vitals stable. Patient no signs of acute distress and nontoxic- appearing. Patient a 3 cm surgical incision on left lateral foot over distal 5th metatarsal. No signs of infection including surrounding erythema or drainage. There was minor dehiscence over mid incision. No active bleeding or gaping wound. Steri-Strips placed over incision. I advised him to follow-up with surgeon in the next 1 to 2 days. Return parameters were discussed. Patient be discharged stable condition with follow-up to PCP. Patient expressed understanding and agreement with care plan. Undiagnosed new problem with uncertain prognosis? @ -No Drug Therapy requiring intensive monitoring for toxicity (Heparin, Nitro, Insulin, Cardizem)? @ -No Were any procedures done? @ -No Diagnosis/symptom? @ -Wound check Acute, or Chronic, or Acute on Chronic? @ -Acute Uncomplicated (without systemic symptoms) or Complicated (systemic symptoms)? @ -Complicated Side effects of treatment? @ -No Exacerbation, Progression, or Severe Exacerbation? @ -No Poses a threat to life or bodily function? How? (Chest pain, [place], [place], pneumonia, PE, COPD, DKA, ARF, appy, cholecystitis, CVA, Diverticulitis, Homicidal, Suicidal, threat to staff... and all critical care pts) @ -No (Shama Mejia) Disposition <Jeremy Gresham - Last Filed: 04/23/23 20:06> Is patient prescribed a controlled substance at d/c from ED?: No Time of Disposition: 20:21 <Shama Mejia - Last Filed: 04/23/23 22:28> Clinical Impression: Visit for wound check Disposition: HOME SELF-CARE Condition: Stable Additional Instructions: PLease follow-up with surgeon as scheduled. Monitor for signd of infections including surrounding erythema and drainage. Return to the ER for any new or worsening symptoms. Referrals: Antonio Zuniga MD [Primary Care Provider] - 1-2 days
[2023-04-23 20:14] VITALS: BP 124/75; PULSE 78; TEMP 98
[2023-04-23 20:41] VITALS: RESP 16
== END 2023-04-23 20:29 | disposition home or self-care (01) ==
LOC: EC 19:47
DX: Z48.00 Encounter for change or removal of nonsurgical wound dressing (principal); J45.909 Unspecified asthma, uncomplicated; F41.9 Anxiety disorder, unspecified; F12.90 Cannabis use, unspecified, uncomplicated; Z79.1 Long term (current) use of non-steroidal anti-inflammatories (NSAID); Z79.899 Other long term (current) drug therapy
CPT/HCPCS: 99282

== ENCOUNTER 2023-06-05 21:34 | Inpatient (IN) | payer OTHER ==
--- NOTE | 2023-06-05 22:39 | ED ---
Abdominal Pain HPI - General Source: patient Mode of arrival: ambulatory Limitations: no limitations <Man Blanchard - Last Filed: 06/06/23 01:20> <Mandie Borden - Last Filed: 06/07/23 04:09> - General Chief Complaint: Abdominal Pain Stated Complaint: Abd/Back Pain Time Seen by Provider: 06/05/23 22:08 - History of Present Illness Initial Comments: 37-year-old male presenting to the ED with a chief complaint of abdominal pain. Patient states that approximately 5 PM and acute onsets diffuse abdominal pain with some associated nausea and dry heaving. Denies any changes in bowel habits. Denies dysuria, frequency, urgency, hematuria. Reports his last bowel movement was this morning which was unremarkable. Denies fever or chills. Has a surgical history significant for appendectomy. Patient does note a history of back pain however reports that this is an ongoing issue and no recent worsening of this. No other complaints at this time. (Man Blanchard) - Related Data Home Medications Medication Instructions Recorded Confirmed Acetaminophen Tab [Tylenol Tab] 1,000 mg PO Q6H PRN 12/19/21 06/06/23 Cyclobenzaprine [Flexeril] 5 mg PO TID PRN 12/19/21 06/06/23 Meloxicam [Mobic] 7.5 mg PO DAILY 12/19/21 06/06/23 Ibuprofen [Motrin Ib] 400 mg PO Q8H PRN 06/06/23 06/06/23 Pregabalin [Lyrica] 150 mg PO BID 06/06/23 06/06/23 hydrOXYzine HCL [Atarax] 25 - 50 mg PO DAILY PRN 06/06/23 06/06/23 Allergies Allergy/AdvReac Type Severity Reaction Status Date / Time No Known Allergies Allergy Verified 06/06/23 10:44 Review of Systems ROS Other: All systems not noted in ROS Statement are negative. <Man Blanchard - Last Filed: 06/06/23 01:20> ROS Other: All systems not noted in ROS Statement are negative. <Mandie Borden - Last Filed: 06/07/23 04:09> ROS Statement: Those systems with pertinent positive or pertinent negative responses have been documented in the HPI. Past Medical History Past Medical History: Asthma, Musculoskeletal Disorder, Skin Disorder Additional Past Medical History / Comment(s): back pain, herniated disc, pain left leg, eczema legs & arms, this surg. was resceduled from last week History of Any Multi-Drug Resistant Organisms: None Reported Past Surgical History: Appendectomy, Back Surgery Additional Past Surgical History / Comment(s): back surgery x4, recent pain procedure Past Anesthesia/Blood Transfusion Reactions: No Reported Reaction Past Psychological History: Anxiety, Panic Disorder Smoking Status: Never smoker Past Alcohol Use History: None Reported Past Drug Use History: Marijuana - Past Family History Father Family Medical History: No Reported History <Man Blanchard - Last Filed: 06/06/23 01:20> General Exam Limitations: no limitations General appearance: alert Eye exam: Present: normal appearance Neck exam: Present: normal inspection Respiratory exam: Present: normal lung sounds bilaterally Cardiovascular Exam: Present: regular rate, normal rhythm GI/Abdominal exam: Present: distended, tenderness (Diffuse abdominal tenderness to palpation with guarding and rigidity.) Neurological exam: Present: alert, oriented X3 Skin exam: Present: warm, dry <Man Blanchard - Last Filed: 06/06/23 01:20> Course <Nielsmaria isabelMandie Rell - Last Filed: 06/07/23 04:09> Vital Signs 06/05/23 06/05/23 06/06/23 21:56 22:21 00:21 Temperature 97.8 F Pulse Rate 78 77 85 Respiratory 18 20 20 Rate Blood Pressure 104/69 104/53 101/50 O2 Sat by Pulse 96 99 95 Oximetry 06/06/23 06/06/23 06/06/23 01:15 02:22 04:28 Temperature Pulse Rate 85 77 Respiratory 20 18 Rate Blood Pressure 93/54 107/54 107/53 O2 Sat by Pulse 95 94 L 96 Oximetry 06/06/23 06/06/23 06/06/23 06:40 07:26 08:00 Temperature 100.6 F H Pulse Rate 77 74 78 Respiratory 18 18 18 Rate Blood Pressure 106/42 104/42 66/35 O2 Sat by Pulse 96 96 94 L Oximetry 06/06/23 06/06/23 06/06/23 08:20 08:21 08:45 Temperature 99.8 F H Pulse Rate 75 68 Respiratory 18 19 Rate Blood Pressure 95/51 97/61 O2 Sat by Pulse 95 96 Oximetry - Reevaluation(s) Reevaluation #1: Dr. Mcnally did not provide an OR time to us and I am concerned that there could be significant decompensation of the patient. i called and spoke to Dr. Flores who agreed to admission to the ICU. 06/06/23 0156 (Mandie Borden) Reevaluation #2: Dr. Flores did recommend that I call Dr. Mcnally and ask for an OR time as patient is surgical emergency. I called Dr. Mcnally at 241. He is aware of the patient's acute condition. He understands that the patient has free air. He does not feel that the patient has a surgical emergency as he is hemodynami nithya stable. He states that the patient will be taken to the OR by the oncoming daytime surgeon. 06/07/23 04:08 (Mandie Borden) Medical Decision Making - Lab Data Result diagrams: 06/05/23 22:41 06/05/23 22:41 <Man Blanchard - Last Filed: 06/06/23 01:20> - Lab Data Result diagrams: 06/05/23 22:41 06/05/23 22:41 <Mandie Borden - Last Filed: 06/07/23 04:09> - Medical Decision Making Was pt. sent in by a medical professional or institution ([facility], OUTSIDE DELIVERER, urgent care, hospital, or [place] health [facility] facility...) When possible be specific @ -No Did you speak to anyone other than the patient for history (EMS, parent, family, police, friend...)? What history was obtained from this source @ -No Did you review nursing and triage notes (agree or disagree)? Why? @ -I reviewed and agree with nursing and triage notes Were old charts reviewed (outside hosp., previous admission, EMS record, old EKG, old radiological studies, urgent care reports/EKG's, [place] health [facility] facility records)? Report findings @ -No old charts were reviewed Differential Diagnosis (chest pain, altered mental status, abdominal pain women, abdominal pain men, vaginal bleeding, weakness, fever, dyspnea, syncope, headache, dizziness, GI bleed, back pain, seizure, CVA, palpatations, mental health, musculoskeletal)? @ -Differential Abdominal Pain Men: Appendicitis, cholecystitis, diverticulosis, ischemic bowel, pancreatitis, hepatitis, UTI, gastroenteritis, AAA, incarcerated hernia, bowel obstruction, constipation, inflammatory bowel, hepatitis, peptic ulcer disease, splenic infarction, perforated viscus, testicular torsion, this is not meant to be an all-inclusive list EKG interpreted by me (3pts min.). @ -As above X-rays interpreted by me (1pt min.). @ -None done CT interpreted by me (1pt min.). @ -CT abdomen pelvis interpreted me which shows free air in the abdomen consis tent with perforation suspected within the sigmoid colon. U/S interpreted by me (1pt. min.). @ -None done What testing was considered but not performed or refused? (CT, X-rays, U/S, labs)? Why? @ -None What meds were considered but not given or refused? Why? @ -None Did you discuss the management of the patient with other professionals (professionals i.e. , PA, OUTSIDE DELIVERER, lab, RT, psych nurse, social work supervisor, tailings dam pumper, teacher, second officer, medical case manager)? Give summary @ -Case discussed with Dr. Mcnally of of general surgery. Patient will be admitted under him n.p.o. Zosyn ordered. No further recommendations at this time. Was smoking cessation discussed for >3mins.? @ -No Was critical care preformed (if so, how long)? @ -Yes, 35 minutes, perforation of the sigmoid colon. Were there social determinants of health that impacted care today? How? (Homelessness, low income, unemployed, alcoholism, drug addiction, transportati on, low edu. Level, literacy, decrease access to med. care, group home, rehab)? @ -No Was there de-escalation of care discussed even if they declined (Discuss DNR or withdrawal of care, Hospice)? DNR status @ -No What co-morbidities impacted this encounter? (DM, HTN, Smoking, COPD, CAD, Cancer, CVA, ARF, Chemo, Hep., AIDS, mental health diagnosis, sleep apnea, morbid obesity)? @ -None Was patient admitted / discharged? Hospital course, mention meds given and route, prescriptions, significant lab abnormalities, going to OR and other pertinent info. @ -Admission 37-year-old male presented to the ED with a chief complaint of an acute onsets of abdominal pain at approximately 5 PM today while he was laying on the couch with some associated nausea and dry heaving. Laboratory studies at this time are largely unremarkable however CT abdomen pelvis is significant for free air in the abdomen consistent with a perforation suspected within the sigmoid colon. Case discussed with Dr. Mcnally who accepts admission of the patient. Patient will be admitted n.p.o. and recommended Zosyn. Undiagnosed new problem with uncertain prognosis? @ -No Drug Therapy requiring intensive monitoring for toxicity (Heparin, Nitro, Insulin, Cardizem)? @ -No Were any procedures done? @ -No Diagnosis/symptom? @ -Bowel perforation Acute, or Chronic, or Acute on Chronic? @ -Acute Uncomplicated (without systemic symptoms) or Complicated (systemic symptoms)? @ -Complicated Side effects of treatment? @ -No Exacerbation, Progression, or Severe Exacerbation? @ -No Poses a threat to life or bodily function? How? (Chest pain, [place], [place], pneumonia, PE, COPD, DKA, ARF, appy, cholecystitis, CVA, Diverticulitis, Homicidal, Suicidal, threat to staff... and all critical care pts) @ -Yes, bowel perforation (Man Blanchard) - Lab Data Lab Results 06/05/23 06/05/23 06/06/23 Range/Units 22:41 22:41 00:27 WBC 10.0 (3.8-10.6) k/uL RBC 4.81 (4.30-5.90) m/uL Hgb 14.0 (13.0-17.5) gm/dL Hct 43.2 (39.0-53.0) % MCV 89.9 (80.0-100.0) fL MCH 29.1 (25.0-35.0) pg MCHC 32.4 (31.0-37.0) g/dL RDW 13.7 (11.5-15.5) % Plt Count 226 (150-450) k/uL MPV 7.6 Neutrophils % 89 % Lymphocytes % 5 % Monocytes % 4 % Eosinophils % 1 % Basophils % 0 % Neutrophils # 8.9 H (1.3-7.7) k/uL Lymphocytes # 0.5 L (1.0-4.8) k/uL Monocytes # 0.4 (0-1.0) k/uL Eosinophils # 0.1 (0-0.7) k/uL Basophils # 0.0 (0-0.2) k/uL Sodium 140 (137-145) mmol/L Potassium 4.0 (3.5-5.1) mmol/L Chloride 106 (98-107) mmol/L Carbon Dioxide 29 (22-30) mmol/L Anion Gap 5 mmol/L BUN 20 (9-20) mg/dL Creatinine 1.35 H (0.66-1.25) mg/dL Est GFR (CKD-EPI)AfAm 77 (>60 ml/min/1.73 sqM) Est GFR (CKD-EPI)NonAf 67 (>60 ml/min/1.73 sqM) Glucose 88 (74-99) mg/dL Plasma Lactic Acid Lawrence (0.7-2.0) mmol/L Calcium 9.2 (8.4-10.2) mg/dL Total Bilirubin 0.4 (0.2-1.3) mg/dL AST 31 (17-59) U/L ALT 48 (4-49) U/L Alkaline Phosphatase 75 (38-126) U/L Total Protein 6.2 L (6.3-8.2) g/dL Albumin 4.0 (3.5-5.0) g/dL Amylase 57 (30-110) U/L Lipase 54 (23-300) U/L Urine Color Light Yellow Urine Appearance Clear (Clear) Urine pH 5.5 (5.0-8.0) Ur Specific Benton 1.027 (1.001-1.035) Urine Protein Negative (Negative) Urine Glucose (UA) Negative (Negative) Urine Ketones Negative (Negative) Urine Blood Negative (Negative) Urine Nitrite Negative (Negative) Urine Bilirubin Negative (Negative) Urine Urobilinogen <2.0 (<2.0) mg/dL Ur Leukocyte Esterase Negative (Negative) 06/06/23 Range/Units 00:48 WBC (3.8-10.6) k/uL RBC (4.30-5.90) m/uL Hgb (13.0-17.5) gm/dL Hct (39.0-53.0) % MCV (80.0-100.0) fL MCH (25.0-35.0) pg MCHC (31.0-37.0) g/dL RDW (11.5-15.5) % Plt Count (150-450) k/uL MPV Neutrophils % % Lymphocytes % % Monocytes % % Eosinophils % % Basophils % % Neutrophils # (1.3-7.7) k/uL Lymphocytes # (1.0-4.8) k/uL Monocytes # (0-1.0) k/uL Eosinophils # (0-0.7) k/uL Basophils # (0-0.2) k/uL Sodium (137-145) mmol/L Potassium (3.5-5.1) mmol/L Chloride (98-107) mmol/L Carbon Dioxide (22-30) mmol/L Anion Gap mmol/L BUN (9-20) mg/dL Creatinine (0.66-1.25) mg/dL Est GFR (CKD-EPI)AfAm (>60 ml/min/1.73 sqM) Est GFR (CKD-EPI)NonAf (>60 ml/min/1.73 sqM) Glucose (74-99) mg/dL Plasma Lactic Acid Lawrence 1.7 (0.7-2.0) mmol/L Calcium (8.4-10.2) mg/dL Total Bilirubin (0.2-1.3) mg/dL AST (17-59) U/L ALT (4-49) U/L Alkaline Phosphatase (38-126) U/L Total Protein (6.3-8.2) g/dL Albumin (3.5-5.0) g/dL Amylase (30-110) U/L Lipase (23-300) U/L Urine Color Urine Appearance (Clear) Urine pH (5.0-8.0) Ur Specific Benton (1.001-1.035) Urine Protein (Negative) Urine Glucose (UA) (Negative) Urine Ketones (Negative) Urine Blood (Negative) Urine Nitrite (Negative) Urine Bilirubin (Negative) Urine Urobilinogen (<2.0) mg/dL Ur Leukocyte Esterase (Negative) Disposition Time of Disposition: 00:45 <Man Blanchard - Last Filed: 06/06/23 01:20> <Mandie Borden - Last Filed: 06/07/23 04:09> Clinical Impression: Bowel perforation Disposition: ADMITTED IP TO THIS HOSP Condition: Fair
[2023-06-05] MEDS: ONDANSETRON 4 MG/2 ML VIAL IVP STA (22:44)
[2023-06-05] MEDS: MORPHINE SULFATE 4 MG/ML SYRINGE IVP STA (22:45)
[2023-06-05 22:49] LABS: Basophils % (A) 0 %; Eosinophils # (A) 0.1 k/uL (0-0.7); Eosinophils % (A) 1 %; HCT 43.2 % (39.0-53.0); Lymphocytes # (A) 0.5 k/uL (1.0-4.8); Lymphocytes % (A) 5 %; MCH 29.1 pg (25.0-35.0); MCHC 32.4 g/dL (31.0-37.0); MCV 89.9 fL (80.0-100.0); Mean Platelet Volume 7.6; Monocytes # (A) 0.4 k/uL (0-1.0); Monocytes % (A) 4 %; Neutrophils # (A) 8.9 k/uL (1.3-7.7); Neutrophils % (A) 89 %; Platelet Count 226 k/uL (150-450); RBC 4.81 m/uL (4.30-5.90); RDW 13.7 % (11.5-15.5)
[2023-06-05 23:05] LABS: ALT 48 U/L (4-49); AST 31 U/L (17-59); African American GFR (CKD) 77 (>60 ml/min/1.73 sqM); Alkaline Phosphatase 75 U/L (38-126); Amylase 57 U/L (30-110); Anion Gap 5 mmol/L; Blood Urea Nitrogen 20 mg/dL (9-20); Calcium 9.2 mg/dL (8.4-10.2); Carbon Dioxide 29 mmol/L (22-30); Chloride 106 mmol/L (98-107); Glucose 88 mg/dL (74-99); Lipase 54 U/L (23-300); Non-African American GFR(CKD) 67 (>60 ml/min/1.73 sqM); Sodium 140 mmol/L (137-145); Total Bilirubin 0.4 mg/dL (0.2-1.3); Total Protein 6.2 g/dL (6.3-8.2)
--- NOTE | 2023-06-06 00:12 | CT ---
EXAM: CT Abdomen and Pelvis Without Intravenous Contrast CLINICAL HISTORY: ITS.REASON CT Reason: diffuse abdominal pain TECHNIQUE: Axial computed tomography images of the abdomen and pelvis without intravenous contrast. This CT exam was performed using one or more of the following dose reduction techniques: automated exposure control, adjustment of the mA and/or kV according to patient size, and/or use of iterative reconstruction technique. COMPARISON: No relevant prior studies available. FINDINGS: Lung bases: Unremarkable. No mass. No consolidation. ABDOMEN: Liver: Unremarkable. Gallbladder and bile ducts: Unremarkable. No calcified stones. No ductal dilation. Pancreas: Unremarkable. No ductal dilation. Spleen: Unremarkable. No splenomegaly. Adrenals: Unremarkable. No mass. Kidneys and ureters: Unremarkable. No obstructing stones. No hydronephrosis. Stomach and bowel: Unremarkable. No obstruction. No mucosal thickening. PELVIS: Appendix: No findings to suggest acute appendicitis. Bladder: Unremarkable. No stones. Reproductive: Unremarkable as visualized. ABDOMEN and PELVIS: Intraperitoneal space: Free air in the abdomen, consistent with gastric perforation. Perforation is suspected within the sigmoid colon (series 201 images 130-140). Surgical evaluation recommended. No significant fluid collection. Bones/joints: Posterior fusion L4-S1. No acute fracture. No dislocation. Soft tissues: Unremarkable. Vasculature: Unremarkable. No abdominal aortic aneurysm. Lymph nodes: Unremarkable. No enlarged lymph nodes. IMPRESSION: 1. Free air in the abdomen, consistent with gastric perforation. Perforation is suspected within the sigmoid colon (series 201 images 130- 140). Surgical evaluation recommended. 2. Posterior fusion L4-S1.
[2023-06-06] MEDS: SODIUM CHLORIDE 0.9% 1,000 ML IV STA (00:24)
[2023-06-06 00:36] LABS: Appearance,Urine Clear (Clear); Color,Urine Light Yellow; PH, Urine 5.5 (5.0-8.0); Protein,Urine Negative (Negative); Specific Gravity,Urine 1.027 (1.001-1.035)
[2023-06-06 00:37] LABS: Bilirubin,Urine Negative (Negative); Blood,Urine Negative (Negative); Glucose,Urine (UA) Negative (Negative); Ketones,Urine Negative (Negative); Leukocyte Esterase,Urine Negative (Negative); Nitrite,Urine Negative (Negative); Urobilinogen,Urine <2.0 mg/dL (<2.0)
[2023-06-06] MEDS ORDERED: NALOXONE 0.4 MG/ML 1 ML VIAL IV PRN (01:22)
[2023-06-06] MEDS: HYDROmorphone 1 MG/ML 1 ML SYRINGE IVP STA (02:20)
[2023-06-06] MEDS: PIPERACILLIN-TAZOBACTAM 3.375 GM in SODIUM CHLORIDE 0.9% 100 ML IVPB STA (02:25)
[2023-06-06] MEDS: SODIUM CHLORIDE 0.9% 1,000 ML IV SCH (02:26)
[2023-06-06] MEDS: HYDROmorphone 0.5 MG/0.5 ML SYRINGE IVP PRN (04:34)
[2023-06-06] MEDS: HYDROmorphone 1 MG/ML 1 ML SYRINGE IVP PRN (07:17)
[2023-06-06] MEDS: ACETAMINOPHEN TAB 325 MG TAB PO PRN (07:33)
[2023-06-06] MEDS: SODIUM CHLORIDE 0.9% 2,000 ML IV ONE (08:19)
[2023-06-06] MEDS: metroNIDAZOLE-NS PMX 500 MG in SALINE 1 100ML.BAG IVPB STA (08:22)
[2023-06-06] MEDS ORDERED: ROCURONIUM 10 MG/ML (5 ML VIAL) IV ONE (10:21)
[2023-06-06] MEDS ORDERED: ONDANSETRON 4 MG/2 ML VIAL ONE (10:21)
[2023-06-06] MEDS ORDERED: PROPOFOL 10 MG/ML 20 ML VIAL IV ONE (10:21)
[2023-06-06] MEDS ORDERED: MIDAZOLAM 2 MG/2 ML VIAL ONE (10:21)
[2023-06-06] MEDS ORDERED: HYDROmorphone (PF) 1 MG/ML ONE (10:21)
[2023-06-06] MEDS ORDERED: NEOSTIGMINE 1 MG/ML 10 ML VIAL ONE (10:21)
[2023-06-06] MEDS ORDERED: fentaNYL (PF) 50 MCG/ML 2 ML AMP ONE (10:21)
[2023-06-06] MEDS ORDERED: GLYCOPYRROLATE 0.2 MG/ML 2 ML VIAL ONE (10:21)
[2023-06-06] MEDS ORDERED: DEXAMETHASONE SOD PHOSPHATE 4 MG/ML 1 ML VIAL ONE (10:21)
[2023-06-06] MEDS ORDERED: SUCCINYLCHOLINE CHLORIDE 200 MG/10 ML VIAL IV ONE (10:21)
[2023-06-06] MEDS ORDERED: LIDOCAINE 1% INJ 10MG/ML (20 ML MDV) ONE (10:21)
[2023-06-06] MEDS: IV FLUID CONTINUATION 1,000 ML IV ONE (10:24)
[2023-06-06] MEDS: PIPERACILLIN-TAZOBACTAM 3.375 GM in SODIUM CHLORIDE 0.9% 100 ML IVPB SCH (10:24)
--- NOTE | 2023-06-06 10:55 | P.GSHP ---
History of Present Illness H&P Date: 06/06/23 Chief Complaint: Generalized abdominal pain 37-year-old male presenting to the ED with a chief complaint of abdominal pain. Patient states that approximately 5 PM and acute onsets diffuse abdominal pain with some associated nausea and dry heaving. Denies any changes in bowel habits. Denies dysuria, frequency, urgency, hematuria. Reports his last bowel movement was this morning which was unremarkable. Denies fever or chills. Has a surgical history significant for appendectomy. Patient does note a history of back pain however reports that this is an ongoing issue and no recent worsening of this. No other complaints at this time. - Constitutional Constitutional: Reports chills, Reports fever - Cardiovascular Cardiovascular: Denies chest pain, Denies claudication, Denies decreased exercise tolerance, Denies edema, Denies high blood pressure, Denies irregular heart beat, Denies orthopnea, Denies rapid heart beat - Respiratory Respiratory: Reports sleep apnea, Reports snoring, Denies congestion, Denies cough, Denies dyspnea, Denies hemoptysis, Denies home oxygen, Denies pleurisy, Denies wheezing - Gastrointestinal Gastrointestinal: Reports abdominal pain, Reports constipation, Reports heartburn, Reports nausea, Denies belching, Denies bloating, Denies BRBPR, Denies change in bowel habits, Denies coffee ground emesis, Denies diarrhea, Denies dyspepsia, Denies hematemesis, Denies hematochezia, Denies jaundice, Denies lactose intolerance, Denies loss of appetite, Denies melena, Denies vomiting - Musculoskeletal Musculoskeletal: Denies atrophy, Denies fractures, Denies gait dysfunction, Denies hot joints - Integumentary Integumentary: Denies acne, Denies boils - Neurological Neurological: Denies aphasia, Denies ataxia, Denies burning pain, Denies change in speech, Denies confusion, Denies double vision, Denies gait dysfunction - Psychiatric Psychiatric: Denies anhedonia, Denies anxiety, Denies anxiety attacks, Denies change in appetite Past Medical History Past Medical History: Asthma, Musculoskeletal Disorder, Skin Disorder Additional Past Medical History / Comment(s): back pain, herniated disc, pain left leg, eczema legs & arms, this surg. was resceduled from last week History of Any Multi-Drug Resistant Organisms: None Reported Past Surgical History: Appendectomy, Back Surgery Additional Past Surgical History / Comment(s): back surgery x4, recent pain procedure Past Anesthesia/Blood Transfusion Reactions: No Reported Reaction Past Psychological History: Anxiety, Panic Disorder Smoking Status: Never smoker Past Alcohol Use History: None Reported Past Drug Use History: Marijuana - Past Family History Father Family Medical History: No Reported History Medications and Allergies Home Medications Medication Instructions Recorded Confirmed Type Acetaminophen Tab [Tylenol Tab] 500 mg PO Q6H PRN 12/19/21 04/03/22 History Cyclobenzaprine [Flexeril] 5 mg PO TID PRN 12/19/21 04/03/22 History Gabapentin [Neurontin] 300 mg PO TID 12/19/21 04/03/22 History Meloxicam [Mobic] 7.5 mg PO DAILY 12/19/21 04/03/22 History Ibuprofen 800 mg PO Q8H PRN 12/30/21 04/03/22 History Albuterol Inhaler [Ventolin Hfa 1 - 2 puff INHALATION Q6H PRN 03/24/22 04/03/22 History Inhaler] diphenhydrAMINE [Benadryl] 25 mg PO HS PRN 03/24/22 04/03/22 History Cyclobenzaprine [Flexeril] 5 mg PO TID #21 tablet 04/10/22 Rx Gabapentin [Neurontin] 300 mg PO TID #27 cap 04/10/22 Rx Sennosides/Docusate Sodium [Senna 1 each PO DAILY #20 capsule 04/10/22 Rx Plus 8.6-50 mg Softgel] cefaDROXiL [Duricef] 500 mg PO Q12HR 5 Days #10 cap 04/10/22 Rx oxyCODONE HCL/ACETAMINOPHEN 1 each PO Q6H #24 tab 04/10/22 Rx [Oxycodone-Acetaminophen 5-325] Allergies Allergy/AdvReac Type Severity Reaction Status Date / Time No Known Allergies Allergy Verified 06/05/23 22:06 Surgical - Exam Vital Signs Temp Pulse Resp BP Pulse Ox 97.8 F 78 18 104/69 96 06/05/23 21:56 06/05/23 21:56 06/05/23 21:56 06/05/23 21:56 06/05/23 21:56 - General well developed, well nourished, no distress, no severe distress, severe pain, obese - Eyes PERRL, normal ocular movement - Respiratory normal expansion, normal respiratory effort, clear to percussion, clear to auscultation - Cardiovascular Rhythm: regular Heart Sounds: normal: S1, S2 - Abdomen Abdomen: soft, tender, bowel sounds, no masses, guarding, rebound, no distended Hernia: none - Rectum Rectum: normal sphincter tone, no hemorrhoids, no tenderness - Integumentary no rash, no growths - Neurologic normal coordination, normal sensation, no disoriented, no combative - Musculoskeletal normal gait, normal posture - Psychiatric oriented to time, oriented to person, oriented to place, speech is normal, memory intact Results - Labs 06/05/23 22:41 06/05/23 22:41 Abnormal Lab Results - Last 24 Hours (Table) 06/05/23 06/05/23 Range/Units 22:41 22:41 Neutrophils # 8.9 H (1.3-7.7) k/uL Lymphocytes # 0.5 L (1.0-4.8) k/uL Creatinine 1.35 H (0.66-1.25) mg/dL Total Protein 6.2 L (6.3-8.2) g/dL Diabetes panel 06/05/23 Range/Units 22:41 Sodium 140 (137-145) mmol/L Potassium 4.0 (3.5-5.1) mmol/L Chloride 106 (98-107) mmol/L Carbon Dioxide 29 (22-30) mmol/L BUN 20 (9-20) mg/dL Creatinine 1.35 H (0.66-1.25) mg/dL Glucose 88 (74-99) mg/dL Calcium 9.2 (8.4-10.2) mg/dL AST 31 (17-59) U/L ALT 48 (4-49) U/L Alkaline Phosphatase 75 (38-126) U/L Total Protein 6.2 L (6.3-8.2) g/dL Albumin 4.0 (3.5-5.0) g/dL Calcium panel 06/05/23 Range/Units 22:41 Calcium 9.2 (8.4-10.2) mg/dL Albumin 4.0 (3.5-5.0) g/dL Pituitary panel 06/05/23 Range/Units 22:41 Sodium 140 (137-145) mmol/L Potassium 4.0 (3.5-5.1) mmol/L Chloride 106 (98-107) mmol/L Carbon Dioxide 29 (22-30) mmol/L BUN 20 (9-20) mg/dL Creatinine 1.35 H (0.66-1.25) mg/dL Glucose 88 (74-99) mg/dL Calcium 9.2 (8.4-10.2) mg/dL Adrenal panel 06/05/23 Range/Units 22:41 Sodium 140 (137-145) mmol/L Potassium 4.0 (3.5-5.1) mmol/L Chloride 106 (98-107) mmol/L Carbon Dioxide 29 (22-30) mmol/L BUN 20 (9-20) mg/dL Creatinine 1.35 H (0.66-1.25) mg/dL Glucose 88 (74-99) mg/dL Calcium 9.2 (8.4-10.2) mg/dL Total Bilirubin 0.4 (0.2-1.3) mg/dL AST 31 (17-59) U/L ALT 48 (4-49) U/L Alkaline Phosphatase 75 (38-126) U/L Total Protein 6.2 L (6.3-8.2) g/dL Albumin 4.0 (3.5-5.0) g/dL - Imaging CT scan - abdomen: report reviewed (Free air inflamation around the sigmoid colon/diverticulitis maryanne cant exclude perforated dudenal ulcer), image reviewed Assessment and Plan (1) Acute abdomen Current Visit: Yes Status: Acute Code(s): R10.0 - ACUTE ABDOMEN SNOMED Code(s): 0235208 (2) Bowel perforation Current Visit: Yes Status: Acute Code(s): K63.1 - PERFORATION OF INTESTINE (NONTRAUMATIC) SNOMED Code(s): 88088705 Plan: Patient was admited last night, When I came by this AM heis pain was worsening and now more localized to Lower abdomen with gurding and rigidity which is a new development from the sign out I received. still normotensive and no tachycardia. continue IV antibiotics keep NMPO Aggressive Hydration. Need immediate exploration in the OR. I discussed with patient and his the need for exploration, due to perforated viscus peptic ulcer disease vs diverticulitis. discussed risks of surgery that include but not limited to Bleeding, infection, pain, deathj, DVT, PE, Heart attach, stroke, anastomotic leak, injury to other organs needing more surgeries, injury to kidney, bladder or ureter, major bleeding needing extra surgeries, need of a stoma, possibility of leaving the abdomen open for few days with more visits to the OR among others, all the patient and his 's questions were answered to their satisfactions. they understand the plan and agree with it. will proceed to OR will start scope to localize the pathology then may or may not convert to an open procedure. Time with Patient: Greater than 30
[2023-06-06] MEDS: BUPIVACAINE (PF) 0.25% 30 ML VIAL SQ ONE (11:02)
[2023-06-06] MEDS: LIDOCAINE 1% INJ 10MG/ML (20 ML MDV) SQ ONE (11:03)
--- NOTE | 2023-06-06 13:15 | P.CNPUL ---
History of Present Illness Consult date: 06/06/23 Requesting physician: Ash Mcnally ( ) Reason for consult: other (Acute surgical abdomen, may require ICU placement) Chief complaint: Abdominal pain History of present illness: This is a 37-year-old white male, history of mild intermittent asthma, patient presented to the ER last night with acute onset of severe abdominal pain. Onset was around 5 PM, pain was described as diffuse abdominal pain associate with nausea and dry heaves, no changes in bowel habits, no dysuria no frequency no u rgency, no fever or chills. Patient had previous history of appendectomy, history of chronic back pain, and he takes Motrin almost on a daily basis for his chronic back pain, had at least 5 surgeries on his back for herniated disc.CT of the abdomen and pelvis done on his initial evaluation in the ER, and it showed free air consistent with gastric perforation. Radiologist also raised the possibility of perforation within the sigmoid colon I saw the patient in the ER, and apparently the surgeon has been aware of this patient last night, patient will be scheduled to go to the operating room as soon as possible. Labs including CBC, basic metabolic profile, renal profile are all normal except creatinine 1.35 patient has been receiving fluids and antibiotics while in the ER for his abdominal sepsis. Review of Systems REVIEW OF SYSTEMS: CONSTITUTIONAL: Negative. EYES: Negative. ENT: Negative. CARDIAC: Negative. PULMONARY: Mild intermittent asthma under control GI: As noted in HPI GENITOURINARY: Negative. MUSCULOSKELETAL: Back pain SKIN: Negative. NEUROPSYCH: Chronic low back pain ENDOCRINE: Negative. HEMATOLOGIC: Negative. Past Medical History Past Medical History: Asthma, Musculoskeletal Disorder, Skin Disorder Additional Past Medical History / Comment(s): back pain, herniated disc, pain left leg, eczema legs & arms, this surg. was resceduled from last week History of Any Multi-Drug Resistant Organisms: None Reported Past Surgical History: Appendectomy, Back Surgery Additional Past Surgical History / Comment(s): back surgery x4, recent pain procedure Past Anesthesia/Blood Transfusion Reactions: No Reported Reaction Past Psychological History: Anxiety, Panic Disorder Smoking Status: Never smoker Past Alcohol Use History: None Reported Past Drug Use History: Marijuana - Past Family History Father Family Medical History: No Reported History Medications and Allergies Home Medications Medication Instructions Recorded Confirmed Type Acetaminophen Tab [Tylenol Tab] 1,000 mg PO Q6H PRN 12/19/21 06/06/23 History Cyclobenzaprine [Flexeril] 5 mg PO TID PRN 12/19/21 06/06/23 History Meloxicam [Mobic] 7.5 mg PO DAILY 12/19/21 06/06/23 History Ibuprofen [Motrin Ib] 400 mg PO Q8H PRN 06/06/23 06/06/23 History Pregabalin [Lyrica] 150 mg PO BID 06/06/23 06/06/23 History hydrOXYzine HCL [Atarax] 25 - 50 mg PO DAILY PRN 06/06/23 06/06/23 History Allergies Allergy/AdvReac Type Severity Reaction Status Date / Time No Known Allergies Allergy Verified 06/06/23 10:44 Physical Exam Vitals: Vital Signs Temp Pulse Resp BP Pulse Ox 06/06/23 09:55 99.0 F 70 18 95/58 95 06/06/23 08:45 68 19 97/61 96 06/06/23 08:21 95/51 06/06/23 08:20 99.8 F H 75 18 95 06/06/23 08:00 78 18 66/35 94 L 06/06/23 07:26 100.6 F H 74 18 104/42 96 06/06/23 06:40 77 18 106/42 96 06/06/23 04:28 77 18 107/53 96 06/06/23 02:22 85 20 107/54 94 L 06/06/23 01:15 93/54 95 06/06/23 00:21 85 20 101/50 95 06/05/23 22:21 77 20 104/53 99 06/05/23 21:56 97.8 F 78 18 104/69 96 Intake and Output 06/05/23 06/06/23 06/06/23 22:59 06:59 14:59 Intake Total 100 Balance 100 Intake: IV 100 Other: Weight 122.47 kg General: The patient is awake and alert, in no distress, and does not appear acutely ill. Skin: Skin is warm and dry and no rashes or lesions are noted. Eye: Pupils are equal, round and reactive to light, extra-ocular movements are intact; there is normal conjunctiva bilaterally. Ears, nose, mouth and throat: There are moist mucous membranes and no oral lesions. Neck: The neck is supple, there is no tenderness or JVD. Cardiovascular: There is a regular rate and rhythm. No murmur, rub or gallop is appreciated. Respiratory: Clear bilaterally no crackles rhonchi or wheezes Gastrointestinal: Soft but tender throughout the whole abdomen. Exquisite tenderness noted in the right lower quadrant and left lower quadrant.. No rebound, no guarding positive bowel sounds Musculoskeletal: Normal ROM, no tenderness, There is no pedal edema. There is no calf tenderness or swelling. No cords were appreciated. Neurological: CN II-XII intact, Cranial nerves III through XII are intact. There are no obvious motor or sensory deficits. Coordination appears grossly intact. Speech is normal. Psychiatric: Cooperative, appropriate mood & affect, normal judgment. Results - Laboratory Findings CBC and BMP: 06/05/23 22:41 06/05/23 22:41 Abnormal lab findings: Abnormal Labs 06/05/23 06/05/23 22:41 22:41 Neutrophils # 8.9 H Lymphocytes # 0.5 L Creatinine 1.35 H Total Protein 6.2 L - Diagnostic Findings Additional studies: CT of the abdomen and pelvis as noted in HPI Assessment and Plan Assessment: Impression: Acute abdomen Acute bowel perforation History of mild intermittent asthma Acute kidney injury is suspected or this could be chronic kidney injury related to nonsteroidal anti-inflammatory/Motrin Chronic back pain and multiple surgeries on back. Recommendation: Continue IV fluids Continue IV antibiotics Patient will need immediate exploration and this is supposedly scheduled by surgery as soon as possible. Resume bronchodilators postsurgery including DuoNeb and Symbicort. Will arrange for the patient to go to ICU after surgery Will continue to follow Time with Patient: Greater than 30
[2023-06-06] MEDS: LACTATED RINGERS 1,000 ML IV ONE (13:25)
[2023-06-06] MEDS: ONDANSETRON 4 MG/2 ML VIAL IVP PRN (13:57)
[2023-06-06] MEDS: ALBUTEROL NEBULIZED 2.5 MG/3 ML INHALATION ONE (13:57)
[2023-06-06] MEDS: HYDROmorphone 0.5 MG/0.5 ML SYRINGE IVP ONE (14:23)
[2023-06-06] MEDS: IPRATROPIUM-ALBUTEROL 3 ML NEB INHALATION SCH (17:02)
[2023-06-06] MEDS: SYMBICORT 160-4.5 MCG INHALER INHALATION SCH (20:44)
[2023-06-07] MEDS: HYDROmorphone 0.5 MG/0.5 ML SYRINGE IVP PRN (00:58)
--- NOTE | 2023-06-07 00:59 | P.OP ---
Date of Procedure: 06/06/23 Preoperative Diagnosis: perforated bowel, free air Postoperative Diagnosis: perforated diverticulitis Procedure(s) Performed: Lap LAR/Sigmoid resection primary anastomosis Anesthesia: GETA Surgeon: Lori Franklin Estimated Blood Loss (ml): 50 IV fluids (ml): 1,800 Urine output (ml): 650 Pathology: other (sigmoid colon) Condition: stable Disposition: PACU Indications for Procedure: free air Operative Findings: perforated diverticulitis Description of Procedure: The patient was brought to the OR and placed supine on the operating table. After undergoing anesthesia, his abdomen was clipped of hair, prepped and draped in sterile fashion with DuraPrep The patients perineum was prepped with Betadine spray. incision above the belly button and 5 mm port placed under direct visualization. CO2 initiated with excellent pressure and excellent flow. exploration revealed a perforated diverticulitis with pelvic abscess and free fluid. [address] in RLQ avoiding branches of inferior epigastric, and one 5 mm port in RUQ. there was adhesions to the left lateral pelvic and abdominal wall. We were able to free this off the pelvic sidewall bluntly and get below the inflammatory mass. We stapled across the proximal rectum with the DARNELL-60 stapler. The mesentery was taken, working back up proximally with ligassue scalpel until we got up above the diverticulitis. We transected the descending colon there with the same stapler. no need to mobilize splenic flexure as the left colon was very redundant and came downeasily for tension-free anastomosis. This was taken down bluntly and with Vessels were sealed with ligEssure scalpel. a fenestele incision was created in lower abdomen, and a wound protector medium size was placed. the sigmoid was taken out and sent to pathology, the left colon exteriorized, and extra 5 cm removed to achieve best blood supply and prevent of lower leak rate. this was taken down using Purstring TA seizers used and found that 29mm EEA is suitable. A 29 EEA stapler was used in the descending colon. We tried to size it up larger, but the colon was pretty small and contracted. Anvil was placed in the descending colon with the pursestring securing it. laparasope introdused again with good co2 pressure after closing the wound protector with a eugenia. exploration show no bleeding, no injury no serosal tear. End-to-end stapled anastomosis was created. We tested the sigmoid with air no air bubbles, excellent seal.. Both mucosal donuts were intact. We applied tesseal to entire anastomotic site. We copiously irrigated out the pelvis, 19F round drain placed, the 12mm site closed with Amandater-Alejandra 0 vicrol, . Fascia was then closed with #1 running PDS sutures, after closing the peritoneum with 0 vicrol. Cody were used to close the skin. modified wound vac applied over the skin, The patient was awakened and transferred to PACU in satisfactory condition. The patient tolerated the procedure well.
--- NOTE | 2023-06-07 03:10 | XR ---
EXAM: XR Chest, 1 View CLINICAL HISTORY: NG tube placement TECHNIQUE: Frontal view of the chest. COMPARISON: No relevant prior studies available. FINDINGS: Lungs: Unremarkable. No acute infiltration, atelectasis or mass. Pleural space: Unremarkable. No pneumothorax or pleural fluid. Heart: Unremarkable. No cardiomegaly. Mediastinum: Unremarkable. Normal mediastinal contour. Bones/joints: No acute findings. Tubes, lines and devices: A gastric tube is seen in the stomach. The tip is not seen. IMPRESSION: A gastric tube is seen in the stomach. The tip is not seen.
[2023-06-07] MEDS: HYDROcodone/APAP 7.5-325MG 1 EACH TAB PO PRN (07:37)
--- NOTE | 2023-06-07 09:29 | P.PN ---
Subjective Progress Note Date: 06/07/23 the patient is status post laparoscopic low anterior resection for perforated sigmoid diverticulitis. Patient appears to be doing well. He had some complaints of incisional pain last night. He has had no flatus or bowel movements. On exam vital signs appear stable. Abdomen is soft. Incision sites are clean dry intact. Patient will continue receive supportive care. We will start diet once his bow el function has returned. Objective - Vital Signs Vital signs: Vital Signs Temp 97.8 F 06/07/23 04:00 Pulse 89 06/07/23 04:00 Resp 18 06/07/23 04:00 BP 143/60 06/07/23 04:00 Pulse Ox 95 06/07/23 04:00 FiO2 Intake & Output 06/06/23 06/07/23 06/07/23 18:59 06:59 18:59 Intake Total 1400 Output Total 800 2140 Balance 600 -2140 Weight 122.47 kg Intake: IV 1400 Output: Gastric Drainage 200 Drainage 40 Right Abdomen 40 Urine 750 1900 Estimated Blood Loss 50 Other: Voiding Method Indwelling Catheter Indwelling Catheter - Labs CBC & Chem 7: 06/05/23 22:41 06/05/23 22:41
[2023-06-07] MEDS: GABAPENTIN 100 MG CAP PO PRN (10:01)
[2023-06-07] MEDS: SODIUM CHLORIDE 0.9% 1,000 ML IV SCH (10:55)
--- NOTE | 2023-06-07 13:55 | P.PN ---
Subjective Progress Note Date: 06/07/23 Principal diagnosis: Acute surgical abdomenbowel perforation This is a 37-year-old white male, history of mild intermittent asthma, patient presented to the ER last night with acute onset of severe abdominal pain. Onset was around 5 PM, pain was described as diffuse abdominal pain associate with nausea and dry heaves, no changes in bowel habits, no dysuria no frequency no u rgency, no fever or chills. Patient had previous history of appendectomy, history of chronic back pain, and he takes Motrin almost on a daily basis for his chronic back pain, had at least 5 surgeries on his back for herniated disc.CT of the abdomen and pelvis done on his initial evaluation in the ER, and it showed free air consistent with gastric perforation. Radiologist also raised the possibility of perforation within the sigmoid colon I saw the patient in the ER, and apparently the surgeon has been aware of this patient last night, patient will be scheduled to go to the operating room as soon as possible. Labs including CBC, basic metabolic profile, renal profile are all normal except creatinine 1.35 patient has been receiving fluids and antibiotics while in the ER for his abdominal sepsis. Patient was reevaluated today on 06/07/2023, patient is now postoperative day #1, status post laparoscopic sigmoid resection and primary anastomosis patient presented initially with perforated bowel/free air/perforated diverticulitis. No active pulmonary issues, no cough no wheezing no shortness of breath, doing well with incentive spirometry, remains on antibiotics/Zosyn patient is also on bronchodilators for his underlying asthma which does not seem to be active at this point. CBC is normal basic metabolic profile is normal creatinine is 1.35. Objective - Vital Signs Vital signs: Vital Signs Temp 98.6 F 06/07/23 08:00 Pulse 96 06/07/23 12:00 Resp 18 06/07/23 12:00 BP 127/68 06/07/23 12:00 Pulse Ox 96 06/07/23 12:00 FiO2 Intake & Output 06/06/23 06/07/23 06/07/23 18:59 06:59 18:59 Intake Total 1400 0 Output Total 800 2140 1805 Balance 600 -2140 -1805 Weight 122.47 kg Intake: IV 1400 Oral 0 Output: Gastric Drainage 200 400 Drainage 40 5 Lower Abdomen 0 Right Abdomen 40 5 Urine 750 1900 1400 Estimated Blood Loss 50 Other: Voiding Method Indwelling Catheter Indwelling Catheter Indwelling Catheter - Exam General: The patient is awake and alert, in no distress, on room air Skin: Skin is warm and dry and no rashes or lesions are noted. Eye: Pupils are equal, round and reactive to light, extra-ocular movements are intact; there is normal conjunctiva bilaterally. Ears, nose, mouth and throat: There are moist mucous membranes and no oral lesions. Neck: The neck is supple, there is no tenderness or JVD. Cardiovascular: There is a regular rate and rhythm. No murmur, rub or gallop is appreciated. Respiratory: Clear bilaterally no crackles rhonchi or wheezes Gastrointestinal: Soft, dressing is clean, wound VAC noted, slight tenderness on palpation Musculoskeletal: Normal ROM, no tenderness, There is no pedal edema. There is no calf tenderness or swelling. No cords were appreciated. Neurological: CN II-XII intact, Cranial nerves III through XII are intact. There are no obvious motor or sensory deficits. Coordination appears grossly intact. Speech is normal. Psychiatric: Cooperative, appropriate mood & affect, normal judgment. - Labs CBC & Chem 7: 06/05/23 22:41 06/05/23 22:41 Assessment and Plan Assessment: Impression: Status post laparoscopic low anterior resection for perforated sigmoid diverticulitis Acute abdomen Acute bowel perforation History of mild intermittent asthma Acute kidney injury is suspected or this could be chronic kidney injury related to nonsteroidal anti-inflammatory/Motrin Chronic back pain and multiple surgeries on back. Recommendation: Continue incentive spirometry Early ambulation Continue IV fluids Continue IV antibiotics Continue bronchodilators postsurgery including DuoNeb and Symbicort. Will continue to follow prn Time with Patient: Less than 30
[2023-06-07] MEDS: LORazepam 2 MG/ML INJ IV PRN (23:00)
--- NOTE | 2023-06-08 17:29 | P.PN ---
Subjective Progress Note Date: 06/08/23 the patient states he is had some issues with receiving pain medication the nurses. He appears to be frustrated with the nursing staff. He has had a temperature 101. On exam vital signs appear stable. Abdomen is soft. There is some turbid fluid in the HALEY drain. Status post low anterior section for acute perforated diverticulitis. Patient will be watched closely. Continue receive IV mantibiotics. Objective - Vital Signs Vital signs: Vital Signs Temp 101.1 F H 06/08/23 13:54 Pulse 100 06/08/23 13:54 Resp 19 06/08/23 13:54 BP 135/75 06/08/23 13:54 Pulse Ox 95 06/08/23 13:54 FiO2 Intake & Output 06/07/23 06/08/23 06/08/23 18:59 06:59 18:59 Intake Total 0 950 Output Total 2755 80 0 Balance -2755 870 0 Intake: Oral 0 950 Output: Gastric Drainage 400 Drainage 5 80 0 Lower Abdomen 0 0 0 Right Abdomen 5 80 Urine 2350 Uretheral (Cuevas) 400 Other: Voiding Method Indwelling Catheter Toilet Toilet # Voids 2 - Labs CBC & Chem 7: 06/05/23 22:41 06/05/23 22:41 Labs: Microbiology - Last 24 Hours (Table) 06/06/23 07:40 Blood Culture - Preliminary Blood 06/06/23 07:26 Blood Culture - Preliminary Blood
[2023-06-09 09:43] LABS: Basophils % (A) 0 %; Eosinophils # (A) 0.1 k/uL (0-0.7); Eosinophils % (A) 1 %; HGB 12.2 gm/dL (13.0-17.5); Lymphocytes # (A) 0.5 k/uL (1.0-4.8); Lymphocytes % (A) 6 %; MCH 29.4 pg (25.0-35.0); MCHC 32.9 g/dL (31.0-37.0); MCV 89.4 fL (80.0-100.0); Mean Platelet Volume 7.5; Monocytes # (A) 0.6 k/uL (0-1.0); Monocytes % (A) 7 %; Neutrophils # (A) 7.1 k/uL (1.3-7.7); Neutrophils % (A) 84 %; Platelet Count 233 k/uL (150-450); RBC 4.14 m/uL (4.30-5.90); RDW 13.3 % (11.5-15.5); WBC 8.5 k/uL (3.8-10.6)
[2023-06-09 09:59] LABS: African American GFR (CKD) >90 (>60 ml/min/1.73 sqM); Anion Gap 8 mmol/L; Blood Urea Nitrogen 11 mg/dL (9-20); Calcium 8.8 mg/dL (8.4-10.2); Carbon Dioxide 26 mmol/L (22-30); Chloride 101 mmol/L (98-107); Glucose 107 mg/dL (74-99); Non-African American GFR(CKD) >90 (>60 ml/min/1.73 sqM); Potassium 3.6 mmol/L (3.5-5.1); Sodium 135 mmol/L (137-145)
--- NOTE | 2023-06-09 16:28 | P.PN ---
Subjective Progress Note Date: 06/09/23 CHIEF COMPLAINT: Perforated diverticulitis HISTORY OF PRESENT ILLNESS: Patient is postop day number #3 status post lower anterior/sigmoid resection primary anastomosis. Patient reports his pain is controlled. Denies any vomiting. He is having a lot of flatus. His Prevana wound vac is no longer working. HALEY drain with 20 mL serosanguineous output. He did have a temp of 101 yesterday. WBC is 8.5 Hgb is 12.2 PHYSICAL EXAM: VITAL SIGNS: Reviewed. GENERAL: Well-developed in no acute distress. HEENT: No sclera icterus. Extraocular movements grossly intact. Moist buccal mucosa. Head is atraumatic, normocephalic. ABDOMEN: Soft. Nondistended. Tender at incision site. Prevana wound vac not w orking NEUROLOGIC: Alert and oriented. Cranial nerves II through XII grossly intact. ASSESSMENT: 1. Perforated diverticulitis PLAN: -Replace Prevana wound vac -Start clear liquid diet -Continue pain management -Continue antibiotics -Continue IV fluids -Encourage patient to ambulate -DVT prophylaxis subcu heparin Physician Wastewater Analyst Lab Analyst note has been reviewed by physician. Signing provider agrees with the documented findings, assessment, and plan of care. Objective - Vital Signs Vital signs: Vital Signs Temp 97.5 F L 06/09/23 15:51 Pulse 86 06/09/23 16:17 Resp 19 06/09/23 15:51 BP 151/90 06/09/23 15:51 Pulse Ox 93 L 06/09/23 15:51 FiO2 Intake & Output 06/08/23 06/09/23 06/09/23 18:59 06:59 18:59 Output Total 0 60 0 Balance 0 -60 0 Weight 122 kg Output: Drainage 0 60 0 Lower Abdomen 0 0 0 Right Abdomen 60 Other: Voiding Method Toilet Toilet Toilet Urinal # Voids 3 4 3 - Labs CBC & Chem 7: 06/09/23 09:06 06/09/23 09:06 Labs: Abnormal Lab Results - Last 24 Hours (Table) 06/09/23 06/09/23 Range/Units 09:06 09:06 RBC 4.14 L (4.30-5.90) m/uL Hgb 12.2 L (13.0-17.5) gm/dL Hct 37.0 L (39.0-53.0) % Lymphocytes # 0.5 L (1.0-4.8) k/uL Sodium 135 L (137-145) mmol/L Glucose 107 H (74-99) mg/dL Microbiology - Last 24 Hours (Table) 06/06/23 13:21 Gram Stain - Preliminary Aspirate Body Fluid Culture - Preliminary Gram Neg Bacilli 06/06/23 07:40 Blood Culture - Preliminary Blood 06/06/23 07:26 Blood Culture - Preliminary Blood
--- NOTE | 2023-06-09 17:26 | P.CONS ---
History of Present Illness - Reason for Consult Consult date: 06/09/23 - History of Present Illness 37 year old M with PMH of chronic lower back pain, asthma initially presented to [facility] with abdominal pain. In the ED, he underwent extensive evaluation. BP 104/69, HR 78, RR 18, T97.8F, 96% on RA. CBC showed neutrophilia of 8.9 and lymphocyte count of 0.5. CMP Cr 1.35 and total protein of 6.2. Lactic acid 1.7. UA negative. CT AP showed free air in the abdomen with perforation s uspected within the sigmoid colon. Patient was started on Zosyn, IVF and admitted to surgery. [facility] Phys[facility] consulted 06/08 for medical management. He underwent laporascopic sigmoid resection primary anastomosis with Dr. Franklin on 06/05. Prevana wound vac applied post surgery. 06/08 Patient was seen and examined. No acute events overnight. Unhappy regarding certain aspects of his care/hospitalization so far. Pain is improving. Maintained on Dilaudid PRN. Maintained on Zosyn 3.375 g IV TID. BCx negative so far. Body fluid aspirate showing gram negative bacilli. CBC Hg 12.2 Hct 37. BMP Na 135, glu 107. Pathology shows acute and chronic diverticulitis with abscess and evidence of perforation with serositis and fibrous adhesions, negative for malignancy. General: non toxic, no distress, appears at stated age Derm: warm, dry Head: atraumatic, normocephalic, symmetric Eyes: EOMI, no lid lag, anicteric sclera Mouth: no lip lesion, mucus membranes moist Cardiovascular: S1S2 tachy, no murmur Lungs: CTA bilateral, no rhonchi, no rales , no accessory muscle use Abd: + bowel sounds. Wound vac with abdominal binder in place. Ext: no gross muscle atrophy, no edema, no contractures Neuro: no focal neuro deficits Psych: Alert, oriented, appropriate affect Based on my assessment of this patient, this patient meets a high complexity level of care. Patient has an acute diagnosis of sigmoid bowel perforation status post sigmoid resection on 06/05 that poses a threat to life or bodily function. Sepsis Perforated divertilitis status post sigmoid resection 06/05: Continue Zosyn 3.375g IV TID (D4). Await aspirate and final blood cultures. Transition to PO antibiotics on discharge. Pain management with Dialudid 1g IV Q3H, [place] 7.5 Q4H PRN. Zofran 4 mg IV Q8H PRN N/V. NS at 125 cc/hr. Acute blood loss anemia: Expected result of surgery. Monitor. Asthma not in acute exacerbation: DuoNeb QID PRN for SOB/wheezing. Chronic lower back pain: Pain management as above. CODE STATUS: FULL CODE DVT Prophylaxis: Heparin SQ GI Prophylaxis: Designated medical POA if patient is not able to make medical decisions for themselves: . I have reviewed the following disaster recovery consultant notes: Surgery, Pulmonary note. I have reviewed the results of the following tests: CBC, BMP, BCx, aspirate Cx, pathology report. I have ordered the following tests: I have discussed the care of this patient with the following independent historian: . I have independently interpreted the following test below: I have discussed the management of this patient with the following physician: Past Medical History Past Medical History: Asthma, Musculoskeletal Disorder, Skin Disorder Additional Past Medical History / Comment(s): back pain, herniated disc, pain left leg, eczema legs & arms, History of Any Multi-Drug Resistant Organisms: None Reported Past Surgical History: Appendectomy, Back Surgery Additional Past Surgical History / Comment(s): back surgery x5, Past Anesthesia/Blood Transfusion Reactions: No Reported Reaction Past Psychological History: Anxiety, Panic Disorder Smoking Status: Never smoker Past Alcohol Use History: None Reported Past Drug Use History: Marijuana Additional Drug Use History / Comment(s): smokes daily - Past Family History Father Family Medical History: No Reported History Medications and Allergies Home Medications Medication Instructions Recorded Confirmed Type Acetaminophen Tab [Tylenol Tab] 1,000 mg PO Q6H PRN 12/19/21 06/06/23 History Cyclobenzaprine [Flexeril] 5 mg PO TID PRN 12/19/21 06/06/23 History Meloxicam [Mobic] 7.5 mg PO DAILY 12/19/21 06/06/23 History Ibuprofen [Motrin Ib] 400 mg PO Q8H PRN 06/06/23 06/06/23 History Pregabalin [Lyrica] 150 mg PO BID 06/06/23 06/06/23 History hydrOXYzine HCL [Atarax] 25 - 50 mg PO DAILY PRN 06/06/23 06/06/23 History Allergies Allergy/AdvReac Type Severity Reaction Status Date / Time No Known Allergies Allergy Verified 06/06/23 10:44 Physical Exam Vitals: Vital Signs Temp Pulse Pulse Resp BP BP Pulse Ox 06/09/23 16:17 86 06/09/23 16:07 86 06/09/23 15:51 97.5 F L 95 19 151/90 93 L 06/09/23 11:45 88 06/09/23 11:33 84 06/09/23 07:54 90 06/09/23 07:42 94 06/09/23 07:33 99.2 F 95 22 149/99 93 L 06/09/23 02:00 98.5 F 93 18 128/72 91 L 06/08/23 20:00 98.2 F 94 15 125/80 92 L Intake and Output 06/09/23 06/09/23 06/09/23 06:59 14:59 22:59 Output Total 20 0 0 Balance -20 0 0 Output: Drainage 20 0 0 Lower Abdomen 0 0 0 Right Abdomen 20 Other: Voiding Method Toilet Urinal # Voids 4 3 Weight 122 kg Results CBC & Chem 7: 06/09/23 09:06 06/09/23 09:06 Labs: Abnormal Lab Results - Last 24 Hours (Table) 06/09/23 06/09/23 Range/Units 09:06 09:06 RBC 4.14 L (4.30-5.90) m/uL Hgb 12.2 L (13.0-17.5) gm/dL Hct 37.0 L (39.0-53.0) % Lymphocytes # 0.5 L (1.0-4.8) k/uL Sodium 135 L (137-145) mmol/L Glucose 107 H (74-99) mg/dL Microbiology - Last 24 Hours (Table) 06/06/23 07:40 Blood Culture - Preliminary Blood 06/06/23 07:26 Blood Culture - Preliminary Blood 06/06/23 13:21 Gram Stain - Preliminary Aspirate Body Fluid Culture - Preliminary Gram Neg Bacilli
[2023-06-09] MEDS: HEPARIN SODIUM,PORCINE 5,000 UNIT/ML 1 ML VIAL SQ SCH (20:32)
--- NOTE | 2023-06-10 06:52 | P.PN ---
Subjective Progress Note Date: 06/10/23 37 year old M with PMH of chronic lower back pain, asthma initially presented to [facility] with abdominal pain. In the ED, he underwent extensive evaluation. BP 104/69, HR 78, RR 18, T97.8F, 96% on RA. CBC showed neutrophilia of 8.9 and lymphocyte count of 0.5. CMP Cr 1.35 and total protein of 6.2. Lactic acid 1.7. UA negative. CT AP showed free air in the abdomen with perforation suspected within the sigmoid colon. Patient was started on Zosyn, IVF and admitted to surgery. [facility] Phys[facility] consulted 06/08 for medical management. He underwent laporascopic sigmoid resection primary anastomosis with Dr. Franklin on 06/05. Prevana wound vac applied post surgery. 06/08 Patient was seen and examined. No acute events overnight. Unhappy regarding certain aspects of his care/hospitalization so far. Pain is improving. Maintained on Dilaudid PRN. Maintained on Zosyn 3.375 g IV TID. BCx negative so far. Body fluid aspirate showing gram negative bacilli. CBC Hg 12.2 Hct 37. BMP Na 135, glu 107. Pathology shows acute and chronic diverticulitis with abscess and evidence of perforation with serositis and fibrous adhesions, negative for malignancy. 06/09 Patient was seen and examined. No acute events overnight. Reports no changes since yesterday. He did have a bowel movement yesterday. Tolerating CLD well. Maintained on Zosyn 3.375 g IV TID. Receiving Dilaudid PRN for pain and Ativan PRN for anxiety. General: non toxic, no distress, appears at stated age Derm: warm, dry Head: atraumatic, normocephalic, symmetric Eyes: EOMI, no lid lag, anicteric sclera Mouth: no lip lesion, mucus membranes moist Cardiovascular: good distal perfusion in all 4 extremities Lungs: breathing comfortably, no accessory muscle use Psych: Alert, oriented, appropriate affect Based on my assessment of this patient, this patient meets a moderate complexity level of care. Patient has an acute diagnosis of sigmoid bowel perforation status post sigmoid resection on 06/05 that poses a threat to life or bodily function. Sepsis Perforated divertilitis status post sigmoid resection 06/05: Continue Zosyn 3.375 g IV TID (D5). Await aspirate and final blood cultures. Transition to PO antibiotics on discharge. Pain management with Dialudid 1g IV Q3H, [place] 7.5 Q4H PRN. Zofran 4 mg IV Q8H PRN N/V. CLD and advance as tolerated. NS at 125 cc/hr. Acute blood loss anemia: Expected result of surgery. Asthma not in acute exacerbation: DuoNeb QID PRN for SOB/wheezing. Chronic lower back pain: Pain management as above. CODE STATUS: FULL CODE DVT Prophylaxis: Heparin SQ GI Prophylaxis: Designated medical POA if patient is not able to make medical decisions for themselves: . I have reviewed the following consultant nurse notes: Surgery, Pulmonary note. I have reviewed the results of the following tests: I have ordered the following tests: I have discussed the care of this patient with the following independent historian: KATEY regarding pain and anxiety management. I have independently interpreted the following test below: I have discussed the management of this patient with the following physician: Objective - Vital Signs Vital signs: Vital Signs Temp 98.1 F 06/10/23 02:00 Pulse 79 06/10/23 02:00 Resp 19 06/09/23 15:51 BP 126/79 06/10/23 02:00 Pulse Ox 95 06/10/23 02:00 FiO2 Intake & Output 06/09/23 06/09/23 06/10/23 06:59 18:59 06:59 Output Total 60 0 30 Balance -60 0 -30 Weight 122 kg Output: Drainage 60 0 30 Lower Abdomen 0 0 0 Right Abdomen 60 30 Other: Voiding Method Toilet Toilet Toilet Urinal # Voids 4 3 # Bowel Movements 1 - Labs CBC & Chem 7: 06/09/23 09:06 06/09/23 09:06 Labs: Abnormal Lab Results - Last 24 Hours (Table) 06/09/23 06/09/23 Range/Units 09:06 09:06 RBC 4.14 L (4.30-5.90) m/uL Hgb 12.2 L (13.0-17.5) gm/dL Hct 37.0 L (39.0-53.0) % Lymphocytes # 0.5 L (1.0-4.8) k/uL Sodium 135 L (137-145) mmol/L Glucose 107 H (74-99) mg/dL Microbiology - Last 24 Hours (Table) 06/06/23 07:40 Blood Culture - Preliminary Blood 06/06/23 07:26 Blood Culture - Preliminary Blood 06/06/23 13:21 Gram Stain - Preliminary Aspirate Body Fluid Culture - Preliminary Gram Neg Bacilli
--- NOTE | 2023-06-10 14:36 | P.PN ---
Subjective Progress Note Date: 06/10/23 CHIEF COMPLAINT: Perforated diverticulitis HISTORY OF PRESENT ILLNESS: Patient is postop day #4 status post lower anterior/sigmoid resection primary anastomosis. Patient reports his pain is controlled. Patient denies any nausea or vomiting. He is having bowel movement and flatus. HALEY drain with 10 mL serosanguineous output. Afebrile. WBC 8.5 Hgb 12.2 platelets 233 PHYSICAL EXAM: VITAL SIGNS: Reviewed. GENERAL: Well-developed in no acute distress. HEENT: No sclera icterus. Extraocular movements grossly intact. Moist buccal mucosa. Head is atraumatic, normocephalic. ABDOMEN: Soft. Nondistended. Tender at incision site. Prevana wound VAC now intact NEUROLOGIC: Alert and oriented. Cranial nerves II through XII grossly intact. ASSESSMENT: 1. Perforated diverticulitis PLAN: -Continue Prevana wound vac -Advance diet to full liquids -Continue pain management -Continue antibiotics -Discontinue IV fluids -Encourage patient to ambulate -Anticipate possible discharge Thursday -DVT prophylaxis subcu heparin Physician Blood Bank Technologist note has been reviewed by physician. Signing provider agrees with the documented findings, assessment, and plan of care. Objective - Vital Signs Vital signs: Vital Signs Temp 98.0 F 06/10/23 14:00 Pulse 104 H 06/10/23 14:00 Resp 17 06/10/23 14:00 BP 135/88 06/10/23 14:00 Pulse Ox 95 06/10/23 14:00 FiO2 Intake & Output 06/09/23 06/10/23 06/10/23 18:59 06:59 18:59 Output Total 0 34 30 Balance 0 -34 -30 Weight 117 kg 117 kg Output: Drainage 0 30 30 Lower Abdomen 0 0 Right Abdomen 30 30 Urine 4 Other: Voiding Method Toilet Toilet Urinal # Voids 3 # Bowel Movements 1 - Labs CBC & Chem 7: 06/09/23 09:06 06/09/23 09:06 Labs: Microbiology - Last 24 Hours (Table) 06/06/23 13:21 Anaerobic Culture - Preliminary Aspirate 06/06/23 13:21 Gram Stain - Final Aspirate Body Fluid Culture - Final Escherichia coli Proteus mirabilis 06/06/23 07:40 Blood Culture - Preliminary Blood 06/06/23 07:26 Blood Culture - Preliminary Blood
--- NOTE | 2023-06-10 16:18 | CDI ---
Documentation Clarification Form Date: 06/10/2023 04:02:02 PM From: Steph Meehan RN CCDS Phone: [phone] Admit Date: 06/06/2023 01:22:00 AM Patient Name: Gavino Torres Visit Number: [id number] Discharge Date: ATTENTION: The Clinical Documentation Specialists (CDI) and [facility] Coding Staff appreciate your assistance in clarifying documentation. Please respond to the clarification below the line at the bottom and electronically sign. The CDI & [facility] Coding staff will review the response and follow-up if needed. Please note: Queries are made part of the Legal Health Record. If you have any questions, please contact the author of this message via ITS. Dr. Ash Mcnally Sepsis is documented 06/08, Medicine consult which may lack sufficient clinical evidence/support in the medical record. Additional clarification is requested. History/Risk Factors: 37 year old male presents to the ED with abdominal pain, nausea and dry heaving. Medical history: Asthma and chronic lower back pain. 06/08, Medicine consult. Clinical Indicators: VSS, 06/04: B/P 104/69, 78, 97.8, 19, 96% Room Air LABS, 06/04: Wbc 10.9; Neutrophils 8.9 Body Fluid Culture, 06/09: Rare Escherichia coli, Rare Proteus mirabilis ABD/PELV, 06/05: Free air in the abdomen, consistent with gastric perforation. Perforation is suspected within the sigmoid colon. Treatment:06/05 06/06 0.9NS 75cc/hr; 06/06 0.9NS 125cc/hr IV Antibiotics: 06/05 Zosyn 3.375gm IVPB x 1; 06/05 Flagyl 500mg IVPB x1; 06/05 Zosyn 3.375gm IVPB Q8H; Fluid bolus: 06/04 0.9NS 1L IV Bolus; 06/05 0.9NS 2L IV Bolus After work up and study, please clarify which diagnosis is most appropriate? [ xx ] Sepsis ruled out [ ] Sepsis is a valid diagnosis as evidence by the following: (Please add rationale): [ ] Other, please specify [ ] Unable to determine (Template Last Reviewed: March 2023Abdirashid GRIGGS
[2023-06-10 18:52] LABS: Glucose,Whole Blood 128 mg/dL (70-110)
[2023-06-10] MEDS: HYDROcodone/APAP 5-325MG 1 EACH TAB PO PRN (21:55)
[2023-06-11] MEDS: MORPHINE SULFATE 4 MG/ML SYRINGE IVP PRN (01:02)
--- NOTE | 2023-06-11 11:39 | P.PN ---
Subjective Progress Note Date: 06/11/23 No new complaints. Drain is putting out > 20cc in last 24 hours. Denies pain. Ambulating hallways. Having BMs. Gen: In NAD, non-toxic HEENT: normocephalic, atraumatic, hearing acuity is intant, mucous membranes moist CVS: perfusing all extremities well, no pitting edema, Respiratory: symmetric chest expansion, no accessory muscle use, GI: soft, NTTP, ND, : no suprapubic tenderness, no CVA tenderness MSK/Derm: no rashes, cyanosis Neuro: CN II-XII intact, no motor weakness, Psych: cooperative, euthymic mood, judgment and insight is intact Hospital Course: 37 year old M with PMH of chronic lower back pain, asthma initially presented to [facility] with abdominal pain. In the ED, he underwent extensive evaluation. BP 104/69, HR 78, RR 18, T97.8F, 96% on RA. CBC showed neutrophilia of 8.9 and lymphocyte count of 0.5. CMP Cr 1.35 and total protein of 6.2. Lactic acid 1.7. UA negative. CT AP showed free air in the abdomen with perforation suspected within the sigmoid colon. Patient was started on Zosyn, IVF and admitted to surgery. [facility] [place] [facility] consulted 06/08 for medical management. He underwent laporascopic sigmoid resection primary anastomosis with Dr. Franklin on 06/05. Prevana wound vac applied post surgery. 06/08 Patient was seen and examined. No acute events overnight. Unhappy regarding certain aspects of his care/hospitalization so far. Pain is improving. Main tained on Dilaudid PRN. Maintained on Zosyn 3.375 g IV TID. BCx negative so far. Body fluid aspirate showing gram negative bacilli. CBC Hg 12.2 Hct 37. BMP Na 135, glu 107. Pathology shows acute and chronic diverticulitis with abscess and evidence of perforation with serositis and fibrous adhesions, negative for malignancy. 06/09 Patient was seen and examined. No acute events overnight. Reports no changes since yesterday. He did have a bowel movement yesterday. Tolerating CLD well. Maintained on Zosyn 3.375 g IV TID. Receiving Dilaudid PRN for pain and Ativan PRN for anxiety. Assessment/plan: Sepsis Perforated divertilitis status post sigmoid resection 3/30: -Continue Zosyn 3.375g IV TID (D5). -Aspirate cultures show E coli and proteus mirabilis, sensitive to zosyn. E coli is resistant to unasyn, cefazolin. Proteus resistant to tetracycline -BCx NGTD -Continue Zosyn 3.375g IV TID (D6). Transition to PO antibiotics on discharge, likely cipro -Pain management with Dialudid 1g IV Q3H, [place] 7.5 Q4H PRN. MUKUL 200mg TID -Zofran 4 mg IV Q8H PRN N/V. FLD and advance as tolerated. -NS at 125 cc/hr. Acute blood loss anemia: -Expected result of surgery. -Can start patient on oral iron once no longer requiring abx Asthma not in acute exacerbation: -DuoNeb QID PRN for SOB/wheezing. Chronic lower back pain: -Pain management as above. CODE STATUS: FULL CODE DVT Prophylaxis: Heparin SQ GI Prophylaxis: Designated medical POA if patient is not able to make medical decisions for themselves: . Objective - Vital Signs Vital signs: Vital Signs Temp 98.4 F 06/11/23 07:03 Pulse 90 06/11/23 08:23 Resp 18 06/11/23 07:03 BP 129/93 06/11/23 07:03 Pulse Ox 96 06/11/23 07:03 FiO2 Intake & Output 06/10/23 06/11/23 06/11/23 18:59 06:59 18:59 Output Total 30 20 Balance -30 -20 Weight 117 kg 118.5 kg Output: Drainage 30 20 Right Abdomen 30 20 Other: Voiding Method Toilet # Voids 3 - Labs CBC & Chem 7: 06/09/23 09:06 06/09/23 09:06 Labs: Abnormal Lab Results - Last 24 Hours (Table) 06/10/23 Range/Units 18:48 POC Glucose (mg/dL) 128 H (70-110) mg/dL Microbiology - Last 24 Hours (Table) 06/06/23 13:21 Anaerobic Culture - Final Aspirate 06/06/23 13:21 Gram Stain - Final Aspirate Body Fluid Culture - Final Escherichia coli Proteus mirabilis
[2023-06-11 11:40] VITALS: BMI 36.4
[2023-06-11] MEDS ORDERED: LORazepam 0.5 MG TAB PO PRN (14:58)
--- NOTE | 2023-06-11 15:00 | P.PN ---
Subjective Progress Note Date: 06/11/23 CHIEF COMPLAINT: Perforated diverticulitis HISTORY OF PRESENT ILLNESS: Patient is postop day #5 status post lower anterior/sigmoid resection primary anastomosis. Patient had increase in pain during the night required morphine. The diet was advanced to full liquid yesterday. He did have a bowel movement yesterday. During the night he feels like everything stopped. He no longer was having any flatus. This morning the flatus has picked up. However he feels a little more bloated. Denies any nause a or vomiting. Afebrile. PHYSICAL EXAM: VITAL SIGNS: Reviewed. GENERAL: Well-developed in no acute distress. HEENT: No sclera icterus. Extraocular movements grossly intact. Moist buccal mucosa. Head is atraumatic, normocephalic. ABDOMEN: Soft. distended. Tender at incision site. Prevana wound VAC intact NEUROLOGIC: Alert and oriented. Cranial nerves II through XII grossly intact. ASSESSMENT: 1. Perforated diverticulitis PLAN: -Continue Prevana wound vac -Continue full liquids. No carbonated beverages or straws -Encourage patient to ambulate the hallway -Continue pain management -Continue antibiotics -Change IV Ativan to oral -DVT prophylaxis subcu heparin Physician Procedure Rn note has been reviewed by physician. Signing provider agrees with the documented findings, assessment, and plan of care. I have personally seen and examined the patient, reviewed the MANAGER ACCOUNT MANAGEMENT /PAs history, exam and MDM and agree with the assessment and plan as written. Based on total visit time, I have performed more than 50% of the visit. As above: Patient doing well today. He had some pain last night and some bloating that has resolved. Passing gas. Last bowel movement last night. Tolerating diet. Thinks he ate too much yesterday. He would like to try solid foods. Will advance to low fiber diet tomorrow. Continue ambulation. HALEY drain remains serous. Possible discharge tomorrow afternoon. Objective - Vital Signs Vital signs: Vital Signs Temp 98.8 F 06/11/23 13:20 Pulse 97 06/11/23 13:20 Resp 18 06/11/23 13:20 BP 138/83 06/11/23 13:20 Pulse Ox 96 06/11/23 13:20 FiO2 Intake & Output 06/10/23 06/11/23 06/11/23 18:59 06:59 18:59 Output Total 30 20 Balance -30 -20 Weight 117 kg 118.5 kg 118.5 kg Output: Drainage 30 20 Right Abdomen 30 20 Other: Voiding Method Toilet # Voids 3 - Labs CBC & Chem 7: 06/09/23 09:06 06/09/23 09:06 Labs: Abnormal Lab Results - Last 24 Hours (Table) 06/10/23 Range/Units 18:48 POC Glucose (mg/dL) 128 H (70-110) mg/dL Microbiology - Last 24 Hours (Table) 06/06/23 13:21 Anaerobic Culture - Final Aspirate
[2023-06-12 10:32] LABS: Basophils # (A) 0.05 X 10*3/uL (0.00-0.10); Basophils % (A) 0.6 %; Eosinophils # (A) 0.31 X 10*3/uL (0.04-0.35); Eosinophils % (A) 3.8 %; HGB 13.2 g/dL (13.0-17.0); Lymphocytes # (A) 0.92 X 10*3/uL (0.90-5.00); Lymphocytes % (A) 11.3 %; MCH 28.5 pg (27.0-32.0); MCV 86.4 FL (80.0-97.0); Mean Platelet Volume 9.1 FL (9.5-12.2); Monocytes # (A) 0.63 X 10*3/uL (0.20-1.00); Monocytes % (A) 7.8 %; NRBC Per 100 WBC 0 X 10*3/uL (0.00-0.01); Neutrophils # (A) 6.08 X 10*3/uL (1.80-7.70); Neutrophils % (A) 74.9 %; Platelet Count 442 X 10*3/uL (140-440); RBC 4.63 X 10*6/uL (4.40-5.60); RDW 13.5 % (11.5-14.5); WBC 8.12 X 10*3/uL (4.50-10.00)
[2023-06-12 10:34] LABS: BUN/Creat Ratio 7.55 Ratio (12.00-20.00); Blood Urea Nitrogen 8.3 mg/dL (9.0-27.0); Calcium 9.4 mg/dL (8.7-10.3); Carbon Dioxide 25.4 mmol/L (21.6-31.8); Chloride 103 mmol/L (96-109); Glucose 103 mg/dL (70-110); Magnesium 2.3 mg/dL (1.5-2.4); Sodium 140 mmol/L (135-145)
--- NOTE | 2023-06-12 10:59 | P.PN ---
Subjective Progress Note Date: 06/12/23 No new complaints. Medically cleared for discharge. Gen: In NAD, non-toxic HEENT: normocephalic, atraumatic, hearing acuity is intant, mucous membranes moist CVS: perfusing all extremities well, no pitting edema, Respiratory: symmetric chest expansion, no accessory muscle use, GI: soft, NTTP, ND, : no suprapubic tenderness, no CVA tenderness MSK/Derm: no rashes, cyanosis Neuro: CN II-XII intact, no motor weakness, Psych: cooperative, euthymic mood, judgment and insight is intact Hospital Course: 37 year old M with PMH of chronic lower back pain, asthma initially presented to [facility] with abdominal pain. In the ED, he underwent extensive evaluation. BP 104/69, HR 78, RR 18, T97.8F, 96% on RA. CBC showed neutrophilia of 8.9 and lymphocyte count of 0.5. CMP Cr 1.35 and total protein of 6.2. Lactic acid 1.7. UA negative. CT AP showed free air in the abdomen with perforation s uspected within the sigmoid colon. Patient was started on Zosyn, IVF and admitted to surgery. [facility] consulted 06/08 for medical management. He underwent laporascopic sigmoid resection primary anastomosis with Dr. Franklin on 06/05. Prevana wound vac applied post surgery. 06/08 Patient was seen and examined. No acute events overnight. Unhappy regarding certain aspects of his care/hospitalization so far. Pain is improving. Maintained on Dilaudid PRN. Maintained on Zosyn 3.375 g IV TID. BCx negative so far. Body fluid aspirate showing gram negative bacilli. CBC Hg 12.2 Hct 37. BMP Na 135, glu 107. Pathology shows acute and chronic diverticulitis with abscess and evidence of perforation with serositis and fibrous adhesions, negative for malignancy. 06/09 Patient was seen and examined. No acute events overnight. Reports no changes since yesterday. He did have a bowel movement yesterday. Tolerating CLD well. Maintained on Zosyn 3.375 g IV TID. Receiving Dilaudid PRN for pain and Ativan PRN for anxiety. Assessment/plan: Sepsis Perforated divertilitis status post sigmoid resection 06/05: -Continue Zosyn 3.375g IV TID (D5). -Aspirate cultures show E coli and proteus mirabilis, sensitive to zosyn. E coli is resistant to unasyn, cefazolin. Proteus resistant to tetracycline -BCx NGTD -Continue Zosyn 3.375g IV TID (D6). Transition to PO antibiotics on discharge, ciprofloxacin vs levofloxacin at the primary teams preference -Pain management with Dialudid 1g IV Q3H, [place] 7.5 Q4H PRN. MUKUL 200mg TID -Zofran 4 mg IV Q8H PRN N/V. FLD and advance as tolerated. -NS at 125 cc/hr. Acute blood loss anemia: -Expected result of surgery. -Can start patient on oral iron once no longer requiring abx Asthma not in acute exacerbation: -DuoNeb QID PRN for SOB/wheezing. Chronic lower back pain: -Pain management as above. CODE STATUS: FULL CODE DVT Prophylaxis: Heparin SQ GI Prophylaxis: Designated medical POA if patient is not able to make medical decisions for themselves: . Objective - Vital Signs Vital signs: Vital Signs Temp 98.5 F 06/12/23 07:17 Pulse 84 06/12/23 09:09 Resp 20 06/12/23 07:50 BP 116/72 06/12/23 07:17 Pulse Ox 94 L 06/12/23 07:17 FiO2 Intake & Output 06/11/23 06/12/23 06/12/23 18:59 06:59 18:59 Output Total 30 30 60 Balance -30 -30 -60 Weight 118.5 kg Output: Drainage 30 30 60 Right Abdomen 30 30 60 Other: Voiding Method Toilet Toilet # Voids 2 # Bowel Movements 1 - Labs CBC & Chem 7: 06/12/23 07:27 06/12/23 07:27 Labs: Abnormal Lab Results - Last 24 Hours (Table) 06/12/23 06/12/23 Range/Units 07:27 07:27 Plt Count 442 H (140-440) X 10*3/uL MPV 9.1 L (9.5-12.2) FL Immature Gran # 0.13 H (0.00-0.04) X 10*3/uL BUN 8.3 L (9.0-27.0) mg/dL BUN/Creatinine Ratio 7.55 L (12.00-20.00) Ratio Microbiology - Last 24 Hours (Table) 06/06/23 07:40 Blood Culture - Final Blood 06/06/23 07:26 Blood Culture - Final Blood 06/06/23 13:21 Anaerobic Culture - Final Aspirate
--- NOTE | 2023-06-12 13:28 | P.DS ---
Providers Date of admission: 06/06/23 01:22 Expected date of discharge: 06/12/23 Attending physician: Ash Mcnally Consults: 06/06/23 02:13 Consult Physician Stat Consulting Provider: Dl Flores Consult Reason/Comments: pneumoperitoneum Do you want consulting provider notified?: Already Contacted 06/09/23 16:25 Consult Physician Routine Consulting Provider: Kassandra Richey Consult Reason/Comments: medical mangement Do you want consulting provider notified?: Yes Primary care physician: Antonio Zuniga MD Hospital Course: Discharge diagnosis 1. Perforated diverticulitis status post lower anterior/sigmoid resection primary anastomosis Hospital course This is a 37-year-old male who presented with lower abdominal pain with nausea and dry heaves. CT scan abdomen pelvis had reported free air in abdomen. Perforation suspected in the sigmoid colon. Patient taken to the OR by Dr. Franklin for perforated diverticulitis. He is status post lower anterior resection/sigmoid resection with primary anastomosis. Patient tolerated surgery well. His pain is controlled. He is tolerating diet. He is having bowel movements and flatus. He has been up and ambulating. He is afebrile. He is stable for discharge. Patient discharged with HALEY drain. Please refer to chart for any further details. Physician Dope Firer note has been reviewed by physician. Signing provider agrees with the documented findings, assessment, and plan of care. Patient doing well today. Pain controlled. May discharge. Follow-up with Dr. Mcnally 1 week. Patient Condition at Discharge: Stable Plan - Discharge Summary Discharge Rx Participant: Yes New Discharge Prescriptions: New Levofloxacin [Levaquin] 500 mg PO DAILY 5 Days #5 tab HYDROcodone/APAP 5-325MG [[place] 5-325] 1 tab PO Q6HR PRN 3 Days #12 tab PRN Reason: Pain Continue Acetaminophen Tab [Tylenol] 1,000 mg PO Q6H PRN PRN Reason: Fever And/ Or Pain Ibuprofen [Motrin Ib] 400 mg PO Q8H PRN PRN Reason: Fever And/ Or Pain hydrOXYzine HCL [Atarax] 25 - 50 mg PO DAILY PRN PRN Reason: Anxiety Pregabalin [Lyrica] 150 mg PO BID Cyclobenzaprine [Flexeril] 5 mg PO TID PRN PRN Reason: Muscle Spasm Discontinued Meloxicam [Mobic] 7.5 mg PO DAILY Discharge Medication List Acetaminophen Tab [Tylenol] 1,000 mg PO Q6H PRN 12/19/21 [History] Cyclobenzaprine [Flexeril] 5 mg PO TID PRN 12/19/21 [History] Ibuprofen [Motrin Ib] 400 mg PO Q8H PRN 06/06/23 [History] Pregabalin [Lyrica] 150 mg PO BID 06/06/23 [History] hydrOXYzine HCL [Atarax] 25 - 50 mg PO DAILY PRN 06/06/23 [History] HYDROcodone/APAP 5-325MG [[place] 5-325] 1 tab PO Q6HR PRN 3 Days #12 tab 06/12/23 [Rx] Levofloxacin [Levaquin] 500 mg PO DAILY 5 Days #5 tab 06/12/23 [Rx] Follow up Appointment(s)/Referral(s): Antonio Zuniga MD [Primary Care Provider] - 1-2 days (Office closed. PLease call office Thursday for appointment) Ash Mcnally MD [STAFF PHYSICIAN] - 06/18/23 3:30 pm Activity/Diet/Wound Care/Special Instructions: No driving while taking [place] No lifting over 10 pounds You may shower. No soaking or tub baths for 2 weeks Very light activity until you are reevaluated at your follow up appointment with your surgeon Keep a log of HALEY drain output and bring with you to your follow-up appointment Milk/strip drains 2-3 times a day Don't take Tylenol and [place] at the same time Discharge Disposition: HOME SELF-CARE
[2023-06-12 13:33] VITALS: BP 111/69; PULSE 75; RESP 18; TEMP 98.1
== END 2023-06-12 15:15 | disposition home or self-care (01) | DRG 231 ==
LOC: EC 21:34 → EEVIPCON 06-06 01:22 → 4SSUR 06-06 01:22 → 2SICU 06-06 01:58 → 3SCARD 06-06 14:37 → 4SSUR 06-07 13:57
PROVIDERS: ADMIT Surgery; ATTEND Surgery
PROC: 0DTN4ZZ Resection of Sigmoid Colon, Percutaneous Endoscopic Approach (ICD-10-PCS; principal; 2023-06-06 10:00)
DX: K57.20 Diverticulitis of large intestine with perforation and abscess without bleeding (principal); D62 Acute posthemorrhagic anemia; J45.20 Mild intermittent asthma, uncomplicated; G89.29 Other chronic pain; K66.0 Peritoneal adhesions (postprocedural) (postinfection); M54.50 Low back pain, unspecified; B96.20 Unspecified Escherichia coli [E. coli] as the cause of diseases classified elsewhere; B96.4 Proteus (mirabilis) (morganii) as the cause of diseases classified elsewhere; Z16.29 Resistance to other single specified antibiotic; Z79.1 Long term (current) use of non-steroidal anti-inflammatories (NSAID); Z79.899 Other long term (current) drug therapy
CPT/HCPCS: 36415; 71045; 74176; 80048; 80053; 81003; 82150; 83605; 83690; 83735; 85025; 86850; 86900; 86901; 87040; 87070; 87075; 87077; 87186; 87205; 88305; 88307; 94640; 96361; 96365; 96375; 96376; 99291

== ENCOUNTER → 2023-07-01 | Outpatient (CLI) | payer OTHER ==
--- NOTE | 2023-07-01 17:52 | CT ---
EXAMINATION TYPE: CT abdomen pelvis w con DATE OF EXAM: 07/01/2023 COMPARISON: 06/05/2023 HISTORY: sharp RLQ and gastric pain since abdominal drain removed, h/o colon perforation on 06/05/23 CT DLP: 1941.3 mGycm CONTRAST: CT scan of the abdomen and pelvis is performed with Oral Contrast and with IV Contrast, patient injec rigoberto with 100 mL of Isovue 300. FINDINGS: LUNG BASES-: No visible nodule. No infiltrate. LIVER/GB: No calcified gallstones. No space occupying hepatic lesion. Biliary tree is of normal ca liber. PANCREAS: No inflammation. No distinct mass. SPLEEN: No splenic enlargement. No lesion seen. ADRENALS: No nodule. No thickening. KIDNEYS/BLADDER: No hydronephrosis. No nephrolithiasis. No distinct renal mass. Urinary bladder g rossly unremarkable. BOWEL: Resolution of previously noted free air. Sigmoid resection changes noted. There is no evidence for leak or abscess. Changes of prior appendectomy. No significant inflammatory change seen. No evid ence of ileus or bowel obstruction. GENITAL ORGANS: No gross abnormality. LYMPH NODES: No greater than 1cm abdominal or pelvic lymph nodes are appreciated. AORTA: No significant abnormality. OSSEOUS STRUCTURES: Postoperative changes of lumbar laminectomy redemonstrated. OTHER: No significant additional abnormality is seen. IMPRESSION: 1. Resolution of previously noted free air. Sigmoid resection changes noted. There is no evidence for leak or abscess. Changes of prior appendectomy. No significant inflammatory change seen.
== END | disposition home or self-care (01) ==
LOC: RADCTMAIN 15:09
PROVIDERS: ATTEND Family Medicine
DX: K57.90 Diverticulosis of intestine, part unspecified, without perforation or abscess without bleeding (principal); R10.9 Unspecified abdominal pain
CPT/HCPCS: 74177; Q9967

== ENCOUNTER 2023-07-22 23:22 | Emergency (ER) | payer OTHER ==
--- NOTE | 2023-07-22 23:53 | ED ---
Abdominal Pain HPI - General Chief Complaint: Abdominal Pain Stated Complaint: ABD pain Time Seen by Provider: 07/22/23 23:27 Source: patient Mode of arrival: ambulatory Limitations: no limitations - History of Present Illness Initial Comments: 37-year-old male with a past medical history significant for diverticulitis status post suspected perforation with lower anterior resection/sigmoid resection with primary anastomosis presenting to the ED with a chief complaint of abdominal pain. Patient reports over the past few days has had some diarrhea and mild diffuse abdominal pain. States today he went to lift up a laundry basket and reports pain became severe. Some associated nausea, no vomiting. Nonbloody bowel movements. Denies urinary symptoms. No chest pain or shortness of breath. Denies fever or chills. No other complaints at this time. - Related Data Home Medications Medication Instructions Recorded Confirmed Acetaminophen Tab [Tylenol] 1,000 mg PO Q6H PRN 12/19/21 06/06/23 Cyclobenzaprine [Flexeril] 5 mg PO TID PRN 12/19/21 06/06/23 Ibuprofen [Motrin Ib] 400 mg PO Q8H PRN 06/06/23 06/06/23 Pregabalin [Lyrica] 150 mg PO BID 06/06/23 06/06/23 hydrOXYzine HCL [Atarax] 25 - 50 mg PO DAILY PRN 06/06/23 06/06/23 Previous Rx's Medication Instructions Recorded HYDROcodone/APAP 5-325MG [[place] 1 tab PO Q6HR PRN 3 Days #12 tab 06/12/23 5-325] Levofloxacin [Levaquin] 500 mg PO DAILY 5 Days #5 tab 06/12/23 Allergies Allergy/AdvReac Type Severity Reaction Status Date / Time No Known Allergies Allergy Verified 07/22/23 23:26 Review of Systems ROS Statement: Those systems with pertinent positive or pertinent negative responses have been documented in the HPI. ROS Other: All systems not noted in ROS Statement are negative. Past Medical History Past Medical History: Asthma, Musculoskeletal Disorder, Skin Disorder Additional Past Medical History / Comment(s): back pain, herniated disc, pain left leg, eczema legs & arms, History of Any Multi-Drug Resistant Organisms: None Reported Past Surgical History: Appendectomy, Back Surgery Additional Past Surgical History / Comment(s): back surgery x5, abdominal surgery Past Anesthesia/Blood Transfusion Reactions: No Reported Reaction Past Psychological History: Anxiety, Panic Disorder Smoking Status: Never smoker Past Alcohol Use History: None Reported Past Drug Use History: Marijuana - Past Family History Father Family Medical History: No Reported History General Exam Limitations: no limitations General appearance: alert Eye exam: Present: normal appearance Neck exam: Present: normal inspection Respiratory exam: Present: normal lung sounds bilaterally Cardiovascular Exam: Present: tachycardia GI/Abdominal exam: Present: soft (Diffuse abdominal tenderness to palpation with rebound tenderness. ), normal bowel sounds. Absent: guarding, rebound, rigid Neurological exam: Present: alert, oriented X3 Skin exam: Present: warm, dry Course Vital Signs 07/22/23 07/22/23 07/23/23 23:23 23:50 01:22 Temperature 98.8 F Pulse Rate 102 H 97 61 Respiratory 20 14 17 Rate Blood Pressure 130/97 120/78 110/61 O2 Sat by Pulse 98 96 95 Oximetry 07/23/23 02:17 Temperature 98.7 F Pulse Rate 54 L Respiratory 16 Rate Blood Pressure 104/62 O2 Sat by Pulse 94 L Oximetry Medical Decision Making - Medical Decision Making Was pt. sent in by a medical professional or institution (, PA, CONCRETE TECHNICIAN, urgent care, hospital, or assisted...) When possible be specific @ -No Did you speak to anyone other than the patient for history (EMS, parent, family, police, friend...)? What history was obtained from this source @ -No Did you review nursing and triage notes (agree or disagree)? Why? @ -I reviewed and agree with nursing and triage notes Were old charts reviewed (outside hosp., previous admission, EMS record, old EKG, old radiological studies, urgent care reports/EKG's, assisted records)? Report findings @ -Reviewed previous visit in which I admitted the patient's status post perforated bowel. Differential Diagnosis (chest pain, altered mental status, abdominal pain women, abdominal pain men, vaginal bleeding, weakness, fever, dyspnea, syncope, he adache, dizziness, GI bleed, back pain, seizure, CVA, palpatations, mental health, musculoskeletal)? @ -Differential Abdominal Pain Men: Appendicitis, cholecystitis, diverticulosis, ischemic bowel, pancreatitis, hepatitis, UTI, gastroenteritis, AAA, incarcerated hernia, bowel obstruction, constipation, inflammatory bowel, hepatitis, peptic ulcer disease, splenic infarction, perforated viscus, testicular torsion, this is not meant to be an all-inclusive list EKG interpreted by me (3pts min.). @ -None X-rays interpreted by me (1pt min.). @ -None done CT interpreted by me (1pt min.). @ -CT abdomen pelvis inter by me which revealed no evidence of acute finding. U/S interpreted by me (1pt. min.). @ -None done What testing was considered but not performed or refused? (CT, X-rays, U/S, labs)? Why? @ -None What meds were considered but not given or refused? Why? @ -None Did you discuss the management of the patient with other professionals (professionals i.e. , PA, CONCRETE TECHNICIAN, lab, RT, psych nurse, director social service, compliance analyst, teacher, medical information officer, rn field case manager)? Give summary @ -No Was smoking cessation discussed for >3mins.? @ -No Was critical care preformed (if so, how long)? @ -No Were there social determinants of health that impacted care today? How? (Homelessness, low income, unemployed, alcoholism, drug addiction, transportatio n, low edu. Level, literacy, decrease access to med. care, chcf, rehab)? @ -No Was there de-escalation of care discussed even if they declined (Discuss DNR or withdrawal of care, Hospice)? DNR status @ -No What co-morbidities impacted this encounter? (DM, HTN, Smoking, COPD, CAD, Cancer, CVA, ARF, Chemo, Hep., AIDS, mental health diagnosis, sleep apnea, morbid obesity)? @ -None Was patient admitted / discharged? Hospital course, mention meds given and route, prescriptions, significant lab abnormalities, going to OR and other pertinent info. @ -Discharge 37-year-old male presented to the ED with complaints of diffuse abdominal pain for the last few days with some associated nonbloody diarrhea however abdominal pain worsening today after picking up a laundry basket. Laboratory studies reviewed. CBC unremarkable. Chemistry panel unremarkable. UA unremarkable. Lactic acid 1.3. CT abdomen pelvis was performed which revealed no evidence of acute finding. Discharged home in stable condition with instructions to closely follow-up with his PCP. Discussed return precautions with patient who verbalized agreement. Undiagnosed new problem with uncertain prognosis? @ -No Drug Therapy requiring intensive monitoring for toxicity (Heparin, Nitro, Insulin, Cardizem)? @ -No Were any procedures done? @ -No Diagnosis/symptom? @ -Abdominal pain Acute, or Chronic, or Acute on Chronic? @ -Acute Uncomplicated (without systemic symptoms) or Complicated (systemic symptoms)? @ -Uncomplicated Side effects of treatment? @ -No Exacerbation, Progression, or Severe Exacerbation? @ -No Poses a threat to life or bodily function? How? (Chest pain, [place], [place], pneumonia, PE, COPD, DKA, ARF, appy, cholecystitis, CVA, Diverticulitis, Homicidal, Suicidal, threat to staff... and all critical care pts) @ -Unlikely - Lab Data Result diagrams: 07/22/23 23:54 07/22/23 23:54 Lab Results 07/22/23 07/22/23 07/22/23 Range/Units 23:54 23:54 23:54 WBC 6.5 (3.8-10.6) k/uL RBC 4.81 (4.30-5.90) m/uL Hgb 13.9 (13.0-17.5) gm/dL Hct 41.9 (39.0-53.0) % MCV 87.1 (80.0-100.0) fL MCH 29.0 (25.0-35.0) pg MCHC 33.3 (31.0-37.0) g/dL RDW 13.3 (11.5-15.5) % Plt Count 308 (150-450) k/uL MPV 7.3 Neutrophils % 65 % Lymphocytes % 23 % Monocytes % 7 % Eosinophils % 3 % Basophils % 1 % Neutrophils # 4.2 (1.3-7.7) k/uL Lymphocytes # 1.5 (1.0-4.8) k/uL Monocytes # 0.4 (0-1.0) k/uL Eosinophils # 0.2 (0-0.7) k/uL Basophils # 0.0 (0-0.2) k/uL Sodium 137 (137-145) mmol/L Potassium 4.5 (3.5-5.1) mmol/L Chloride 103 (98-107) mmol/L Carbon Dioxide 25 (22-30) mmol/L Anion Gap 9 mmol/L BUN 18 (9-20) mg/dL Creatinine 1.03 (0.66-1.25) mg/dL Est GFR (CKD-EPI)AfAm >90 (>60 ml/min/1.73 sqM) Est GFR (CKD-EPI)NonAf >90 (>60 ml/min/1.73 sqM) Glucose 100 H (74-99) mg/dL Plasma Lactic Acid Lawrence 1.3 (0.7-2.0) mmol/L Calcium 9.6 (8.4-10.2) mg/dL Total Bilirubin 0.4 (0.2-1.3) mg/dL AST 26 (17-59) U/L ALT 34 (4-49) U/L Alkaline Phosphatase 72 (38-126) U/L Total Protein 6.6 (6.3-8.2) g/dL Albumin 4.4 (3.5-5.0) g/dL Amylase 72 (30-110) U/L Lipase 139 (23-300) U/L Urine Color Urine Appearance (Clear) Urine pH (5.0-8.0) Ur Specific [place] (1.001-1.035) Urine Protein (Negative) Urine Glucose (UA) (Negative) Urine Ketones (Negative) Urine Blood (Negative) Urine Nitrite (Negative) Urine Bilirubin (Negative) Urine Urobilinogen (<2.0) mg/dL Ur Leukocyte Esterase (Negative) 07/23/23 Range/Units 00:04 WBC (3.8-10.6) k/uL RBC (4.30-5.90) m/uL Hgb (13.0-17.5) gm/dL Hct (39.0-53.0) % MCV (80.0-100.0) fL MCH (25.0-35.0) pg MCHC (31.0-37.0) g/dL RDW (11.5-15.5) % Plt Count (150-450) k/uL MPV Neutrophils % % Lymphocytes % % Monocytes % % Eosinophils % % Basophils % % Neutrophils # (1.3-7.7) k/uL Lymphocytes # (1.0-4.8) k/uL Monocytes # (0-1.0) k/uL Eosinophils # (0-0.7) k/uL Basophils # (0-0.2) k/uL Sodium (137-145) mmol/L Potassium (3.5-5.1) mmol/L Chloride (98-107) mmol/L Carbon Dioxide (22-30) mmol/L Anion Gap mmol/L BUN (9-20) mg/dL Creatinine (0.66-1.25) mg/dL Est GFR (CKD-EPI)AfAm (>60 ml/min/1.73 sqM) Est GFR (CKD-EPI)NonAf (>60 ml/min/1.73 sqM) Glucose (74-99) mg/dL Plasma Lactic Acid Lawrence (0.7-2.0) mmol/L Calcium (8.4-10.2) mg/dL Total Bilirubin (0.2-1.3) mg/dL AST (17-59) U/L ALT (4-49) U/L Alkaline Phosphatase (38-126) U/L Total Protein (6.3-8.2) g/dL Albumin (3.5-5.0) g/dL Amylase (30-110) U/L Lipase (23-300) U/L Urine Color Yellow Urine Appearance Clear (Clear) Urine pH 6.0 (5.0-8.0) Ur Specific [place] 1.024 (1.001-1.035) Urine Protein Trace H (Negative) Urine Glucose (UA) Negative (Negative) Urine Ketones Negative (Negative) Urine Blood Negative (Negative) Urine Nitrite Negative (Negative) Urine Bilirubin Negative (Negative) Urine Urobilinogen <2.0 (<2.0) mg/dL Ur Leukocyte Esterase Negative (Negative) Disposition Clinical Impression: Abdominal pain Disposition: HOME SELF-CARE Condition: Good Instructions (If sedation given, give patient instructions): Abdominal Pain (ED) Additional Instructions: Please return to the Emergency Department if symptoms worsen or any other concerns. Please follow-up with your PCP. Take [id number] medications as needed for pain. Is patient prescribed a controlled substance at d/c from ED?: No Referrals: Antonio Zuniga MD [Primary Care Provider] - 1-2 days Time of Disposition: 02:15
[2023-07-23] MEDS: KETOROLAC 15 MG/ML 1 ML VIAL IVP STA
[2023-07-23] MEDS: HYDROmorphone 1 MG/ML 1 ML SYRINGE IVP STA (00:02)
[2023-07-23] MEDS: SODIUM CHLORIDE 0.9% 1,000 ML IV STA (00:06)
[2023-07-23 00:13] LABS: Basophils % (A) 1 %; Eosinophils # (A) 0.2 k/uL (0-0.7); Eosinophils % (A) 3 %; HCT 41.9 % (39.0-53.0); HGB 13.9 gm/dL (13.0-17.5); Lymphocytes # (A) 1.5 k/uL (1.0-4.8); Lymphocytes % (A) 23 %; MCHC 33.3 g/dL (31.0-37.0); MCV 87.1 fL (80.0-100.0); Mean Platelet Volume 7.3; Monocytes # (A) 0.4 k/uL (0-1.0); Monocytes % (A) 7 %; Neutrophils # (A) 4.2 k/uL (1.3-7.7); Neutrophils % (A) 65 %; Platelet Count 308 k/uL (150-450); RBC 4.81 m/uL (4.30-5.90); RDW 13.3 % (11.5-15.5); WBC 6.5 k/uL (3.8-10.6)
[2023-07-23 00:20] LABS: Appearance,Urine Clear (Clear); Bilirubin,Urine Negative (Negative); Blood,Urine Negative (Negative); Color,Urine Yellow; Glucose,Urine (UA) Negative (Negative); Ketones,Urine Negative (Negative); Leukocyte Esterase,Urine Negative (Negative); Nitrite,Urine Negative (Negative); Protein,Urine Trace (Negative); Specific Gravity,Urine 1.024 (1.001-1.035); Urobilinogen,Urine <2.0 mg/dL (<2.0)
[2023-07-23 00:26] LABS: ALT 34 U/L (4-49); AST 26 U/L (17-59); African American GFR (CKD) >90 (>60 ml/min/1.73 sqM); Albumin 4.4 g/dL (3.5-5.0); Alkaline Phosphatase 72 U/L (38-126); Amylase 72 U/L (30-110); Anion Gap 9 mmol/L; Blood Urea Nitrogen 18 mg/dL (9-20); Calcium 9.6 mg/dL (8.4-10.2); Carbon Dioxide 25 mmol/L (22-30); Chloride 103 mmol/L (98-107); Glucose 100 mg/dL (74-99); Lipase 139 U/L (23-300); Non-African American GFR(CKD) >90 (>60 ml/min/1.73 sqM); Potassium 4.5 mmol/L (3.5-5.1); Sodium 137 mmol/L (137-145); Total Bilirubin 0.4 mg/dL (0.2-1.3); Total Protein 6.6 g/dL (6.3-8.2)
[2023-07-23] MEDS: ACETAMINOPHEN TAB 500 MG TAB PO STA (00:38)
--- NOTE | 2023-07-23 01:34 | CT ---
EXAM: CT Abdomen and Pelvis With Intravenous Contrast CLINICAL HISTORY: ITS.REASON CT Reason: diffuse abdominal pain TECHNIQUE: Axial computed tomography images of the abdomen and pelvis with intravenous contrast. CTDI is 34.8 mGy and DLP is 1818.6 mGy-cm. This CT exam was performed using one or more of the following dose reduction techniques: automated exposure control, adjustment of the mA and/or kV according to patient size, and/or use of iterative reconstruction technique. COMPARISON: No relevant prior studies available. FINDINGS: Lung bases: Unremarkable. No mass. No consolidation. ABDOMEN: Liver: Unremarkable. No mass. Gallbladder and bile ducts: Unremarkable. No calcified stones. No ductal dilation. Pancreas: Unremarkable. No mass. No ductal dilation. Spleen: Unremarkable. No splenomegaly. Adrenals: Unremarkable. No mass. Kidneys and ureters: Unremarkable. No solid mass. No hydronephrosis. Stomach and bowel: Partial sigmoidectomy. No obstruction. PELVIS: Appendix: No findings to suggest acute appendicitis. Bladder: Unremarkable. No mass. Reproductive: Unremarkable as visualized. ABDOMEN and PELVIS: Intraperitoneal space: Unremarkable. No free air. No significant fluid collection. Bones/joints: Lumbosacral fusion hardware at L4-S1. No acute fracture. No dislocation. Soft tissues: Unremarkable. Vasculature: Unremarkable. No abdominal aortic aneurysm. Lymph nodes: Unremarkable. No enlarged lymph nodes. IMPRESSION: Partial sigmoidectomy.
[2023-07-23] MEDS: ONDANSETRON 4 MG ODT STARTER PACK 2 TAB BTL PO STA (02:31)
[2023-07-23] MEDS: ACET/COD 300 MG/30 MG STARTER PACK 6 TAB BTL PO STA (02:31)
[2023-07-23 02:44] VITALS: BP 104/62; PULSE 54; RESP 16; TEMP 98.7
== END 2023-07-23 02:35 | disposition home or self-care (01) ==
LOC: EC 23:22
DX: R10.84 Generalized abdominal pain (principal); R00.0 Tachycardia, unspecified
CPT/HCPCS: 36415; 74177; 80053; 81003; 82150; 83605; 83690; 85025; 96361; 96374; 96375; 99284

== ENCOUNTER → 2024-01-20 | Outpatient (CLI) | payer OTHER ==
--- NOTE | 2024-01-24 18:57 | MR ---
EXAMINATION TYPE: MR lumbar spine wo con DATE OF EXAM: 01/20/2024 12:47 PM COMPARISON: 12/02/2022 CLINICAL INDICATION: Male, 38 years old with history of M43.26,M54.50, Low back pain into left side a nd left lower extremity. TECHNIQUE: Multiplanar, multisequence images of the lumbar spine were acquired. IV Contrast: mL (None, if empty) FINDINGS: Cord ends at the T12 L5-S1: Loss of disc height is level. No residual disc bulge or focal disc herniation is evident. Lami nectomy has been performed. Pedicle screws are present. L4-L5: Pedicle screws are present. No spinal canal stenosis or neural foraminal stenosis is evident. There appears to be a laminectomy. Disc desiccation is present. L3-L4: Facet hypertrophy is present with lateral canal narrowing. Minimal residual disc bulge is pres ent greater into the left lateral direction. Moderate left foraminal stenosis is present. Lateral spi nal canal narrowing is present. No AP spinal canal stenosis. L2-L3: Mild disc bulges anterior thecal sac contact. Facet hypertrophy of posterior lateral thecal sa c no spinal canal stenosis is present. There is some signal change along the inferior endplate of L2 which may be acute or old. L1-L2: No focal disc herniation or significant disc bulge. No spinal canal stenosis. Neural foramen are patent. T12-L1: No focal disc herniation or significant disc bulge. No spinal canal stenosis. Neural forame n are patent. Findings appears similar to the 12/02/2022 exam IMPRESSION: 1. Postsurgical changes of or through S1. 2. Facet hypertrophy contributing to lateral canal narrowing at L5-3-4. Mild residual disc has anteri or thecal sac flattening. 3. Degenerative disc changes L5-S1 and L4-5. [facility], , 01/24/2024 6:54 PM
== END | disposition home or self-care (01) ==
LOC: RADMRIMAIN 10:55
PROVIDERS: ATTEND Orthopaedic Surgery
DX: M43.26 Fusion of spine, lumbar region (principal); M51.360 Other intervertebral disc degeneration, lumbar region with discogenic back pain only
CPT/HCPCS: 72148

== ENCOUNTER 2024-08-16 08:35 | Emergency (ER) | payer OTHER ==
[2024-08-16] MEDS: HYDROmorphone 0.5 MG/0.5 ML SYRINGE IVP STA (09:14)
[2024-08-16] MEDS: PANTOPRAZOLE 40 MG/10 ML VIAL IVP STA (09:15)
[2024-08-16] MEDS: KETOROLAC 15 MG/ML 1 ML VIAL IVP STA ×2 (09:15→10:40)
[2024-08-16] MEDS: ONDANSETRON 4 MG/2 ML VIAL IVP STA (09:15)
--- NOTE | 2024-08-16 09:43 | XR ---
EXAMINATION TYPE: XR lumbar spine 2 or 3V DATE OF EXAM: 08/16/2024 CLINICAL HISTORY: pain TECHNIQUE: Three views of the lumbar spine are submitted. COMPARISON: MRI lumbar spine 01/20/2024, 12/02/2022, CT lumbar spine 04/08/2022, lumbar spine radiograp h 04/07/2022 FINDINGS: There are 5 lumbar type vertebral bodies identified. Surgical changes from posterior lumbar fusion wi th bilateral pedicular screws and rods and disc spaces are involving L4-S1. Hardware appears intact. Multilevel facet arthropathy lower lumbar spine. The lumbar spine shows satisfactory alignment withou t evidence of acute fracture or dislocation. Vertebral body heights are within normal limits. The ov erlying soft tissue appears unremarkable. IMPRESSION: 1. No acute fracture or dislocation is seen in the lumbar spine. 2. Postsurgical changes of lumbar spine fusion L4-S1. Hardware appears intact. [facility], , 08/16/2024 9:41 AM
[2024-08-16 10:40] VITALS: RESP 18
[2024-08-16] MEDS: DEXAMETHASONE SOD PHOSPHATE 10 MG/ML 1 ML VIAL IVP STA (10:40)
--- NOTE | 2024-08-16 11:21 | ED ---
Back Pain HPI - General Chief Complaint: Back Pain/Injury Stated Complaint: back pain Time Seen by Provider: 08/16/24 08:37 Source: patient, RN notes reviewed Mode of arrival: ambulatory Limitations: no limitations - History of Present Illness Initial Comments: 39-year-old male presents emergency department complaint of low back pain. Patient states he exacerbated over the weekend. Patient states he has no bowel bladder and in continence or retention no saddle anesthesias. Patient had 5 back surgeries most recent by Dr. Petty seen. Patient states mostly the right side some pain and rates on his leg denies any associated weakness or severe pain or saddle anesthesias. Patient has no abdominal pain denies fevers or chills no other complaints. - Related Data Home Medications Medication Instructions Recorded Confirmed Acetaminophen Tab [Tylenol] 1,000 mg PO Q6H PRN 12/19/21 06/06/23 Cyclobenzaprine [Flexeril] 5 mg PO TID PRN 12/19/21 06/06/23 Ibuprofen [Motrin Ib] 400 mg PO Q8H PRN 06/06/23 06/06/23 Pregabalin [Lyrica] 150 mg PO BID 06/06/23 06/06/23 hydrOXYzine HCL [Atarax] 25 - 50 mg PO DAILY PRN 06/06/23 06/06/23 Previous Rx's Medication Instructions Recorded HYDROcodone/APAP 5-325MG [[place] 1 tab PO Q6HR PRN 3 Days #12 tab 06/12/23 5-325] Levofloxacin [Levaquin] 500 mg PO DAILY 5 Days #5 tab 06/12/23 Cyclobenzaprine [Flexeril] 10 mg PO TID PRN #15 tab 08/16/24 predniSONE 50 mg PO DAILY #5 tab 08/16/24 Allergies Allergy/AdvReac Type Severity Reaction Status Date / Time No Known Allergies Allergy Verified 08/16/24 08:39 Review of Systems ROS Statement: Those systems with pertinent positive or pertinent negative responses have been documented in the HPI. ROS Other: All systems not noted in ROS Statement are negative. Past Medical History Past Medical History: Asthma, Musculoskeletal Disorder, Skin Disorder Additional Past Medical History / Comment(s): back pain, herniated disc, pain left leg, eczema legs & arms, History of Any Multi-Drug Resistant Organisms: None Reported Past Surgical History: Appendectomy, Back Surgery Additional Past Surgical History / Comment(s): back surgery x5, abdominal surgery Past Anesthesia/Blood Transfusion Reactions: No Reported Reaction Past Psychological History: Anxiety, Panic Disorder Smoking Status: Never smoker Past Alcohol Use History: None Reported Past Drug Use History: Marijuana - Past Family History Father Family Medical History: No Reported History General Exam Limitations: no limitations General appearance: alert, in no apparent distress Head exam: Present: atraumatic, normocephalic, normal inspection Eye exam: Present: normal appearance, PERRL, EOMI. Absent: scleral icterus, conjunctival injection, periorbital swelling ENT exam: Present: normal exam, normal oropharynx, mucous membranes moist Neck exam: Present: normal inspection, full ROM. Absent: tenderness, meningismus, lymphadenopathy Respiratory exam: Present: normal lung sounds bilaterally. Absent: respiratory distress, wheezes, rales, rhonchi, stridor Cardiovascular Exam: Present: regular rate, normal rhythm, normal heart sounds. Absent: systolic murmur, diastolic murmur, rubs, gallop, clicks GI/Abdominal exam: Present: soft, normal bowel sounds. Absent: distended, tenderness, guarding, rebound, rigid Back exam: Present: full ROM, tenderness, muscle spasm, paraspinal tenderness. Absent: CVA tenderness (R), CVA tenderness (L), vertebral tenderness Neurological exam: Present: reflexes normal. Absent: motor sensory deficit Course Vital Signs 08/16/24 08/16/24 08/16/24 08:37 10:38 12:08 Temperature 97.5 F L 97.7 F 97.9 F Pulse Rate 72 57 L 62 Respiratory 16 18 18 Rate Blood Pressure 152/90 127/74 129/82 O2 Sat by Pulse 96 97 97 Oximetry Medical Decision Making - Medical Decision Making Was pt. sent in by a medical professional or institution (, PA, MANAGER FRENCH, urgent care, hospital, or chcf...) When possible be specific @ -No Did you speak to anyone other than the patient for history (EMS, parent, family, police, friend...)? What history was obtained from this source @ -No Did you review nursing and triage notes (agree or disagree)? Why? @ -I reviewed and agree with nursing and triage notes Were old charts reviewed (outside hosp., previous admission, EMS record, old EKG, old radiological studies, urgent care reports/EKG's, chcf records)? Report findings @ -No old charts were reviewed Differential Diagnosis (chest pain, altered mental status, abdominal pain women, abdominal pain men, vaginal bleeding, weakness, fever, dyspnea, syncope, headache, dizziness, GI bleed, back pain, seizure, CVA, palpatations, mental health, musculoskeletal)? @ -Differential Back Pain: Strain, zoster, cauda equina syndrome, epidural abscess, vertebral osteomyelitis, discitis, fracture, subluxation, disc herniation, DJD, spinal stenosis, dissection, AAA, pancreatitis, peptic ulcer disease, pyelonephritis, kidney stone, this is not meant to be an all-inclusive list. EKG interpreted by me (3pts min.). @ -As above X-rays interpreted by me (1pt min.). @ -X-ray lumbar spine showing stable hardware, postsurgical changes CT interpreted by me (1pt min.). @ -None done U/S interpreted by me (1pt. min.). @ -None done What testing was considered but not performed or refused? (CT, X-rays, U/S, labs)? Why? @ -None What meds were considered but not given or refused? Why? @ -None Did you discuss the management of the patient with other professionals (professionals i.e. , PA, MANAGER FRENCH, lab, RT, psych nurse, school social worker, hem inspector, teacher, surveillance officer, manager case)? Give summary @ -No Was smoking cessation discussed for >3mins.? @ -No Was critical care preformed (if so, how long)? @ -No Were there social determinants of health that impacted care today? How? (Homelessness, low income, unemployed, alcoholism, drug addiction, transportation, low edu. Level, literacy, decrease access to med. care, [facility], rehab)? @ -No Was there de-escalation of care discussed even if they declined (Discuss DNR or withdrawal of care, Hospice)? DNR status @ -No What co-morbidities impacted this encounter? (DM, HTN, Smoking, COPD, CAD, Cancer, CVA, ARF, Chemo, Hep., AIDS, mental health diagnosis, sleep apnea, morbid obesity)? @ -None Was patient admitted / discharged? Hospital course, mention meds given and route, prescriptions, significant lab abnormalities, going to OR and other pertinent info. @ -Discharge patient symptoms are improved. Patient has no signs distress and no red flag symptoms. Patient discharged with supportive treatment return parameters terrence. Undiagnosed new problem with uncertain prognosis? @ -No Drug Therapy requiring intensive monitoring for toxicity (Heparin, Nitro, Insulin, Cardizem)? @ -No Were any procedures done? @ -No Diagnosis/symptom? @ -Acute back pain, muscle spasms Acute, or Chronic, or Acute on Chronic? @ -Acute Uncomplicated (without systemic symptoms) or Complicated (systemic symptoms)? @ -Uncomplicated Side effects of treatment? @ -No Exacerbation, Progression, or Severe Exacerbation? @ -No Poses a threat to life or bodily function? How? (Chest pain, [place], [place], pneumonia, PE, COPD, DKA, ARF, appy, cholecystitis, CVA, Diverticulitis, Homicidal, Suicidal, threat to staff... and all critical care pts) @ -No Disposition Clinical Impression: Back pain Disposition: HOME SELF-CARE Condition: Stable Instructions (If sedation given, give patient instructions): Acute Low Back Pain (ED) Additional Instructions: Please return to the Emergency Department if symptoms worsen or any other concerns. Prescriptions: Cyclobenzaprine [Flexeril] 10 mg PO TID PRN #15 tab PRN Reason: Muscle Spasm predniSONE 50 mg PO DAILY #5 tab Is patient prescribed a controlled substance at d/c from ED?: No Referrals: Antonio Zuniga MD [Primary Care Provider] - 1-2 days Time of Disposition: 11:52
[2024-08-16] MEDS: LIDOCAINE 4% PATCH TOPICAL ONE (12:03)
[2024-08-16] MEDS: ACET/COD 300 MG/30 MG STARTER PACK 6 TAB BTL PO STA (12:04)
[2024-08-16 12:10] VITALS: BP 129/82; PULSE 62; TEMP 97.9
== END 2024-08-16 12:12 | disposition home or self-care (01) ==
LOC: EC 08:35
DX: M54.50 Low back pain, unspecified (principal)
CPT/HCPCS: 72100; 99284; 96374; 96375; 96376; J1100; J3360; J2405; J1885; J1171; J2470